=== PATIENT | female | born 1970 | race Hispanic/Latino ===

== ENCOUNTER 2020-03-16 22:40 | Inpatient (IN) | payer OTHER ==
[2020-03-16 23:13] LABS: #Lymphocytes 0.6 thou/uL (1.20-3.40); #Monocytes 0.2 thou/uL (0.11-0.59); #Neutrophils 4.6 thou/uL (1.40-6.50); %Basophils 0.3 % (0.0-1.0); %Eosinophils 0.2 % (0.0-10.0); %Lymphocytes 10.4 % (21.0-51.0); %Monocytes 4.2 % (0.0-10.0); %Neutrophils 84.9 % (42.0-75.0); Hemoglobin 11.9 g/dL (12.0-16.0); Mean Corpuscular HGB CONC 32.2 g/dL (32.0-36.0); Mean Corpuscular Hemoglobin 27.7 pg (27.0-31.0); Mean Platelet Volume 8.1 fL (7.4-10.4); Platelet Count 238 thou/uL (130-400); RBC Distribution Width 14.8 % (11.5-14.5); Red Blood Cell (RBC) Count 4.28 mill/uL (4.20-5.40); White Blood Cell (WBC) Count 5.4 thou/uL (4.8-10.8)
[2020-03-16] MEDS ORDERED: cefTRIAXone\\ROCEPHIN 2 GM VIAL ONE (23:24)
[2020-03-16] MEDS ORDERED: Azithromycin 500 MG VIAL ONE (23:24)
[2020-03-16] MEDS ORDERED: Dexamethasone 10 MG/ML VIAL ONE (23:24)
[2020-03-16 23:28] LABS: ALT (SGPT) 14 U/L (8-55); AST (SGOT) 28 U/L (5-34); Albumin 3.3 g/dL (3.5-5.0); Alkaline Phosphatase 67 U/L (40-110); Anion Gap 14 mmol/L (10-20); BUN (Urea Nitrogen) 5 mg/dL (9.8-20.1); Bilirubin, Total Less than 0.2 mg/dL (0.2-1.2); CK (CPK) 27 U/L (29-168); Calc. Creatinine Clearance 0 mL/min (70-130); Calcium 8.2 mg/dL (7.8-10.44); Carbon Dioxide 22 mmol/L (22-29); Chloride 106 mmol/L (98-107); Estimated GFR-MDRD 87; Glucose 118 mg/dL (70-105); Potassium 3.3 mmol/L (3.5-5.1); Protein, Total 6.3 g/dL (6.0-8.3); Sodium 139 mmol/L (136-145)
[2020-03-17] MEDS ORDERED: Senokot S 8.6-50 MG TAB PO PRN (00:38)
[2020-03-17] MEDS ORDERED: Acetaminophen 325 MG TAB PO PRN (00:43)
[2020-03-17 01:24] LABS: INR-International Normal Ratio 0.9; PTT 38.8 sec (22.9-36.1); Prothrombin Time 12.6 sec (12.0-14.7)
[2020-03-17 01:25] LABS: D-Dimer Test 0.4 *mcg/mL (0.27-0.43)
[2020-03-17 05:02] LABS: #Lymphocytes 0.5 thou/uL (1.20-3.40); #Monocytes 0.1 thou/uL (0.11-0.59); #Neutrophils 5.9 thou/uL (1.40-6.50); %Eosinophils 0.2 % (0.0-10.0); %Lymphocytes 7.1 % (21.0-51.0); %Monocytes 2.1 % (0.0-10.0); %Neutrophils 90.6 % (42.0-75.0); Mean Corpuscular HGB CONC 33.2 g/dL (32.0-36.0); Mean Corpuscular Hemoglobin 28.4 pg (27.0-31.0); Mean Corpuscular Volume 85.4 fL (78.0-98.0); Mean Platelet Volume 8.3 fL (7.4-10.4); Platelet Count 240 thou/uL (130-400); RBC Distribution Width 14.8 % (11.5-14.5); Red Blood Cell (RBC) Count 4.22 mill/uL (4.20-5.40); White Blood Cell (WBC) Count 6.5 thou/uL (4.8-10.8)
[2020-03-17 05:22] LABS: ALT (SGPT) 13 U/L (8-55); AST (SGOT) 25 U/L (5-34); Alkaline Phosphatase 64 U/L (40-110); Anion Gap 11 mmol/L (10-20); BUN (Urea Nitrogen) 6 mg/dL (9.8-20.1); Bilirubin, Total Less than 0.2 mg/dL (0.2-1.2); Calc. Creatinine Clearance 103 mL/min (70-130); Calcium 8.1 mg/dL (7.8-10.44); Carbon Dioxide 25 mmol/L (22-29); Chloride 110 mmol/L (98-107); Estimated GFR-MDRD 85; Globulin 2.9 g/dL (2.4-3.5); Glucose 156 mg/dL (70-105); Potassium 4.2 mmol/L (3.5-5.1); Protein, Total 5.9 g/dL (6.0-8.3); Sodium 142 mmol/L (136-145)
--- NOTE | 2020-03-17 05:55 | HP ---
CHIEF COMPLAINT: Shortness of breath. HISTORY OF PRESENT ILLNESS: Ms. Godfrey is a 49-year-old woman, who presented to the emergency department today due to feeling generally unwell and short of breath. She has been sedentary for the last 48 hours. States she has had some chest discomfort associated with coughing. She has been unable to take a deep breath without it causing coughing fits. States her cough has been dry and denies any hemoptysis. Reports having fevers, chills, and generalized body aches. She was tested positive for COVID one week ago. The patient states her mother was the first one to come down with COVID. She states she had been feeling poorly since Tuesday. Reports having a couple episodes of diarrhea, which has now resolved. Denies any vomiting, but does complain of nausea and decreased appetite due to changes with her taste. States because of that, her oral intake has diminished in the last 2 to 3 days. Denies having any abdominal pain. No urinary symptoms. All other review of systems are negative. ED COURSE: In the emergency department, she had an EKG showing sinus tachycardia with a heart rate of 118. She had a chest x-ray done, which showed diffuse bilateral airspace disease concerning for edema versus pneumonia. This is as per ED report as radiology report is not yet available. LABORATORY DATA: Laboratory studies were done showing white count of 5.4, hemoglobin of 11.9, hematocrit 36.8, neutrophils 84.9%. Potassium 3.3, BUN 5, creatinine 0.71, GFR 87, albumin 3.3, glucose 118. CK 27. Lactic acid 1.9. Troponin negative. CRP 24.66. D-dimer was negative and BNP 18.6. The patient was noted to have sats of 95% on room air with respiratory rate of 36, therefore placed on 2 L by nasal cannula with improvement in her sats to 98%, and respiratory rate was normalized. She was given 10 mg of dexamethasone IV, azithromycin, Rocephin, and 500 mL of normal saline. PAST MEDICAL HISTORY: Hyperlipidemia. PAST SURGICAL HISTORY: . SOCIAL HISTORY: The patient lives with her family. Denies any tobacco use, alcohol consumption, or illicit drug use. FAMILY HISTORY: Noncontributory. ALLERGIES: NO KNOWN DRUG ALLERGIES. CURRENT MEDICATIONS: None. PHYSICAL EXAMINATION: GENERAL: The patient appears generally unwell, but is in no acute distress. She was found sleeping comfortably in bed. VITAL SIGNS: Temperature 99.3, pulse 100, respirations 18, O2 saturation 94% on room air, 99% on 2 L by nasal cannula, blood pressure 141/75. HEENT: Normocephalic and atraumatic. Pupils are equal, round, and reactive to light. Sclerae icterus. Oropharynx is clear. NECK: Supple. LUNGS: Clear to auscultation bilaterally; however, decreased inspiratory effort due to deep inspiration causing coughing fits. She denies any chest pain at present. No chest wall tenderness. ABDOMEN: Soft, nontender, and nondistended with bowel sounds present. No guarding or rigidity. No renal angle tenderness. EXTREMITIES: No lower leg swelling or edema. No calf tenderness. SKIN: Warm and dry. INVESTIGATIONS: As mentioned above in HPI. IMPRESSION AND PLAN: Ms. Godfrey is a 49-year-old woman, who tested positive for COVID one week ago, presenting with complaints of shortness of breath and difficulty catching her breath, as well as fever, generalized body aches, chills, and a decreased appetite. Diarrhea which she experienced two days ago has resolved. Saturations have improved and her respiratory rate has settled. She had a D- dimer done which was normal. She was tachycardic initially, however, her heart rate has settled. Continue to monitor the patient overnight. Plan to continue steroids as well as azithromycin. The patient otherwise a healthy individual, who takes no medications at home. Code status is full. Her surrogate decision maker is her , Kvng Godfrey. Case discussed with Dr. Kaye, who agrees with the plan of care as described above. Job ID: [id number] MTDD
[2020-03-17] MEDS: Dexamethasone 4 MG TAB PO SCH (07:56)
[2020-03-17] MEDS: Enoxaparin Sodium 40 MG/0.4 ML SYRINGE SC SCH (07:56)
[2020-03-17] MEDS ORDERED: Enoxaparin Sodium 40 MG/0.4 ML SYRINGE SC SCH ×2 (09:00)
--- NOTE | 2020-03-17 10:30 | RAD ---
PORTABLE CHEST: DATE: 03/16/2020. PROVIDED CLINICAL HISTORY: Dyspnea. FINDINGS: Comparison 03/20/2014. Cardiac and mediastinal silhouette is within normal limits. There is diffuse bilateral airspace disease. There is no pleural fluid or pneumothorax apparent. IMPRESSION: Diffuse bilateral airspace disease, edema versus pneumonia. Followup is recommended. POS: JEFF
[2020-03-17] MEDS: Albuterol 200 PUFF (6.7GM INHALER) INH SCH ×2 (17:54→21:56)
[2020-03-17] MEDS: Acetaminophen 500 MG TAB PO PRN (17:54)
[2020-03-17] MEDS: Guaifenesin DM 100-10/5 ML UDCUP PO PRN (17:54)
[2020-03-17] MEDS: Azithromycin 500 MG in Sodium Chloride 0.9% 250 ML 250 ML IVPB SCH (21:56)
[2020-03-18] MEDS: Albuterol 200 PUFF (6.7GM INHALER) INH SCH ×6 (03:33→20:33)
[2020-03-18] MEDS: Dexamethasone 4 MG TAB PO SCH (08:34)
[2020-03-18] MEDS: Enoxaparin Sodium 40 MG/0.4 ML SYRINGE SC SCH (08:36)
[2020-03-18] MEDS: Guaifenesin DM 100-10/5 ML UDCUP PO PRN ×2 (08:57→15:48)
[2020-03-18] MEDS: Acetaminophen 500 MG TAB PO PRN ×2 (12:11→22:58)
--- NOTE | 2020-03-18 20:04 | PDOC.HOSPP ---
- Subjective Encounter Date: 03/18/20 Encounter Time: 16:40 Subjective: f/u for COVID-19 PNA on O2 via NC/Zithromax/Dexamethasone/Albuterol MDI. States feeling fatigued and coughing. - Objective Vital Signs & Weight: Vital Signs (12 hours) Temp Pulse Resp BP Pulse Ox 03/18/20 19:45 97.4 F L 86 21 H 133/83 92 L 03/18/20 15:55 98.8 F 91 18 132/78 96 03/18/20 12:13 98.7 F 86 18 129/79 94 L 03/18/20 08:36 99.3 F 96 18 129/78 91 L Weight Weight 154 lb I&O: 03/17/20 03/18/20 03/19/20 06:59 06:59 06:59 Intake Total 810 980 Output Total 650 700 Balance 160 280 Result Diagrams: 03/17/20 04:35 03/17/20 04:35 Additional Labs: Microbiology 03/16/20 23:00 Venous blood - Right Arm Blood Culture - Preliminary NO GROWTH AT 48 HOURS 03/16/20 23:00 Venous blood - Left Arm Blood Culture - Preliminary NO GROWTH AT 48 HOURS Laboratory Tests 03/16/20 03/17/20 03/17/20 23:00 01:00 01:00 Lactic Acid 1.9 Ferritin 95.37 C-Reactive Protein 24.66 H Radiology Reviewed by me: Yes (PCXR - diffuse bilat infiltrates) EKG Reviewed by me: Yes (Tele - SR) Hospitalist ROS - Medication Medications: Active Medications Generic Name Dose Route Start Last Admin Trade Name Freq PRN Reason Stop Dose Admin Acetaminophen 1,000 mg 03/17/20 17:29 03/18/20 12:11 Tylenol PO 1,000 mg Q6H PRN Administration Fever or Pain Albuterol Sulfate 2 puff 03/17/20 18:30 03/18/20 17:47 Proventil Hfa INH 2 puff [id number] NEHAL Administration Dexamethasone 6 mg 03/17/20 08:00 03/18/20 08:34 Decadron PO 6 mg QAM-WM NEHAL Administration Enoxaparin Sodium 40 mg 03/17/20 09:00 03/18/20 08:36 Lovenox SC 40 mg DAILY NEHAL Administration Guaifenesin/Dextromethorphan 15 ml 03/17/20 17:28 03/18/20 15:48 Robitussin Dm PO 15 ml Q4H PRN Administration Cough Azithromycin 500 mg/ Sodium 250 mls @ 250 mls/hr 03/17/20 23:30 03/17/20 21: 56 Chloride IVPB 250 mls Q24HR NEHAL Administration Pantoprazole Sodium 40 mg 03/17/20 09:00 03/18/20 08:36 Protonix PO 40 mg DAILY NEHAL Administration - Exam General Appearance: awake alert, ill appearing Eye: PERRL, anicteric sclera, scleral icterus ENT: normocephalic atraumatic, no oropharyngeal lesions Neck: supple, symmetric, no JVD, no thyromegaly, no lymphadenopathy Heart: RRR, no murmur, no gallops, no rubs, normal peripheral pulses Heart - other findings: S1, S2 Respiratory: tachypneic Respiratory - other findings: diminished bilat, occ exp wheeze Gastrointestinal: soft, non-tender, non-distended, normal bowel sounds, no palpable masses Extremities: no cyanosis, no clubbing, no edema Skin: normal turgor, no lesions Neurological: cranial nerve grossly intact, no new deficit Musculoskeletal: normal tone, normal strength, no muscle wasting Psychiatric: normal affect, A&O x 3 Hosp A/P (1) Pneumonia due to COVID-19 virus Code(s): U07.1 - COVID-19; J12.89 - OTHER VIRAL PNEUMONIA Status: Acute Plan: Continue Zithromax/Dexamethasone/Albuterol MDI, isolation protocol (2) Acute respiratory failure with hypoxia Code(s): J96.01 - ACUTE RESPIRATORY FAILURE WITH HYPOXIA Status: Acute Plan: Continue O2 via NC @ 3L/min NC, continue bronchodilators (3) Sinus tachycardia Code(s): R00.0 - TACHYCARDIA, UNSPECIFIED Status: Acute Plan: Secondary to #1, likely exacerbated with Albuterol - Plan continue antibiotics, foster care social worker, respiratory therapy, out of bed/ambulate , DVT proph w/SCDs Continue pulmonary supportive mgmt Continue Zithromax Continue Dexamethasone/Albuterol O2 support as clinically indicated Isolation protocol
[2020-03-18] MEDS: Azithromycin 500 MG in Sodium Chloride 0.9% 250 ML 250 ML IVPB SCH (20:32)
[2020-03-19] MEDS: Albuterol 200 PUFF (6.7GM INHALER) INH SCH ×6 (02:15→21:22)
[2020-03-19] MEDS: Dexamethasone 4 MG TAB PO SCH (07:35)
[2020-03-19] MEDS: Enoxaparin Sodium 40 MG/0.4 ML SYRINGE SC SCH (07:36)
[2020-03-19] MEDS: Guaifenesin DM 100-10/5 ML UDCUP PO PRN ×2 (07:37→21:21)
[2020-03-19] MEDS: Acetaminophen 500 MG TAB PO PRN ×2 (12:13→21:21)
--- NOTE | 2020-03-19 14:27 | PDOC.HOSPP ---
- Subjective Encounter Date: 03/19/20 Encounter Time: 14:05 Subjective: f/u for COVID-19 PNA on current Zithromax/Albuterol/Dexamethasone/O2 @ 4L/min NC. Feels better today than yesterday. - Objective Vital Signs & Weight: Vital Signs (12 hours) Temp Pulse Resp BP BP Pulse Ox 03/19/20 12:30 98.6 F 85 20 137/79 94 L 03/19/20 08:08 98.4 F 82 24 H 134/78 92 L 03/19/20 02:55 98.5 F 88 18 132/79 93 L Weight Weight 154 lb I&O: 03/18/20 03/19/20 03/20/20 06:59 06:59 06:59 Intake Total 810 1580 120 Output Total 650 1500 Balance 160 80 120 Result Diagrams: 03/17/20 04:35 03/17/20 04:35 Additional Labs: Accuchecks 03/18/20 20:47 POC Glucose 141 H Microbiology 03/16/20 23:00 Venous blood - Right Arm Blood Culture - Preliminary NO GROWTH AT 48 HOURS 03/16/20 23:00 Venous blood - Left Arm Blood Culture - Preliminary NO GROWTH AT 48 HOURS Laboratory Tests 03/16/20 03/17/20 03/17/20 23:00 01:00 01:00 Lactic Acid 1.9 Ferritin 95.37 C-Reactive Protein 24.66 H EKG Reviewed by me: Yes (Tele - SR) Hospitalist ROS - Medication Medications: Active Medications Generic Name Dose Route Start Last Admin Trade Name Freq PRN Reason Stop Dose Admin Acetaminophen 1,000 mg 03/17/20 17:29 03/19/20 12:13 Tylenol PO 1,000 mg Q6H PRN Administration Fever or Pain Albuterol Sulfate 2 puff 03/17/20 18:30 03/19/20 07:37 Proventil Hfa INH 2 puff [id number] NEHAL Administration Dexamethasone 6 mg 03/17/20 08:00 03/19/20 07:35 Decadron PO 6 mg QAM-WM NEHAL Administration Enoxaparin Sodium 40 mg 03/17/20 09:00 03/19/20 07:36 Lovenox SC 40 mg DAILY NEHAL Administration Guaifenesin/Dextromethorphan 15 ml 03/17/20 17:28 03/19/20 07:37 Robitussin Dm PO 15 ml Q4H PRN Administration Cough Azithromycin 500 mg/ Sodium 250 mls @ 250 mls/hr 03/17/20 23:30 03/18/20 20: 32 Chloride IVPB 250 mls Q24HR NEHAL Administration Pantoprazole Sodium 40 mg 03/17/20 09:00 03/19/20 07:36 Protonix PO 40 mg DAILY NEHAL Administration - Exam General Appearance: NAD, awake alert Eye: PERRL, anicteric sclera ENT: normocephalic atraumatic, no oropharyngeal lesions Neck: supple, symmetric, no JVD, no thyromegaly, no lymphadenopathy Heart: RRR, no murmur, no gallops, no rubs, normal peripheral pulses Respiratory: tachypneic Respiratory - other findings: diminished in bases, occasional rhonchi Gastrointestinal: soft, non-tender, non-distended, normal bowel sounds, no palpable masses Extremities: no cyanosis, no clubbing, no edema Skin: normal turgor, no lesions Neurological: cranial nerve grossly intact, no new deficit Musculoskeletal: normal tone, normal strength, no muscle wasting Psychiatric: normal affect, A&O x 3 Hosp A/P (1) Pneumonia due to COVID-19 virus Code(s): U07.1 - COVID-19; J12.89 - OTHER VIRAL PNEUMONIA Status: Acute Plan: Continue Zithromax/Albuterol MDI/O2 via NC, isolation protocol (2) Acute respiratory failure with hypoxia Code(s): J96.01 - ACUTE RESPIRATORY FAILURE WITH HYPOXIA Status: Acute Plan: Continue O2 @ 4L/min NC, wean O2 as clinically indicated (3) Hyperglycemia Code(s): R73.9 - HYPERGLYCEMIA, UNSPECIFIED Status: Acute Plan: Likely due to steroid therapy, serial monitoring (4) Sinus tachycardia Code(s): R00.0 - TACHYCARDIA, UNSPECIFIED Status: Acute Plan: Resolving, continue supportive mgmt, tele monitoring - Plan continue antibiotics, social services technician, respiratory therapy, DVT proph w/SCDs Continue pulmonary supportive mgmt Continue Zithromax Continue Dexamethasone/Albuterol O2 support as clinically indicated Isolation protocol ? d/c in 48h
[2020-03-19] MEDS: Azithromycin 500 MG in Sodium Chloride 0.9% 250 ML 250 ML IVPB SCH (21:21)
[2020-03-20] MEDS: Albuterol 200 PUFF (6.7GM INHALER) INH SCH ×6 (03:05→22:30)
[2020-03-20] MEDS: Enoxaparin Sodium 40 MG/0.4 ML SYRINGE SC SCH (08:48)
[2020-03-20] MEDS: Acetaminophen 500 MG TAB PO PRN ×3 (08:48→22:30)
[2020-03-20] MEDS: Dexamethasone 4 MG TAB PO SCH (08:49)
[2020-03-20] MEDS: Guaifenesin DM 100-10/5 ML UDCUP PO PRN ×3 (12:13→22:30)
--- NOTE | 2020-03-20 17:10 | PDOC.HOSPP ---
- Subjective Encounter Date: 03/20/20 Encounter Time: 17:10 Subjective: f/u for COVID-19 PNA on current Zithromax/Dexamethasone/Albuterol. Remains on 4L /min NC. - Objective Vital Signs & Weight: Vital Signs (12 hours) Temp Pulse Resp BP Pulse Ox 03/20/20 16:00 98.2 F 76 16 124/72 93 L 03/20/20 12:00 98.7 F 81 16 132/76 93 L 03/20/20 11:27 92 L 03/20/20 08:00 97.6 F 88 18 132/76 92 L Weight Weight 154 lb I&O: 03/19/20 03/20/20 03/21/20 06:59 06:59 06:59 Intake Total 1580 1140 Output Total 1500 950 Balance 80 190 Result Diagrams: 03/17/20 04:35 03/17/20 04:35 Additional Labs: Microbiology 03/16/20 23:00 Venous blood - Right Arm Blood Culture - Preliminary NO GROWTH AT 48 HOURS 03/16/20 23:00 Venous blood - Left Arm Blood Culture - Preliminary NO GROWTH AT 48 HOURS Laboratory Tests 03/16/20 03/17/20 03/17/20 23:00 01:00 01:00 Lactic Acid 1.9 Ferritin 95.37 C-Reactive Protein 24.66 H EKG Reviewed by me: Yes (Tele - SR) Hospitalist ROS - Medication Medications: Active Medications Generic Name Dose Route Start Last Admin Trade Name Freq PRN Reason Stop Dose Admin Acetaminophen 1,000 mg 03/17/20 17:29 03/20/20 08:48 Tylenol PO 1,000 mg Q6H PRN Administration Fever or Pain Albuterol Sulfate 2 puff 03/17/20 18:30 03/20/20 15:04 Proventil Hfa INH 2 puff [id number] NEHAL Administration Dexamethasone 6 mg 03/17/20 08:00 03/20/20 08:49 Decadron PO 6 mg QAM-WM NEHAL Administration Enoxaparin Sodium 40 mg 03/17/20 09:00 03/20/20 08:48 Lovenox SC 40 mg DAILY NEHAL Administration Guaifenesin/Dextromethorphan 15 ml 03/17/20 17:28 03/20/20 12:13 Robitussin Dm PO 15 ml Q4H PRN Administration Cough Azithromycin 500 mg/ Sodium 250 mls @ 250 mls/hr 03/17/20 23:30 03/19/20 21: 21 Chloride IVPB 250 mls Q24HR NEHAL Administration Pantoprazole Sodium 40 mg 03/17/20 09:00 03/20/20 08:48 Protonix PO 40 mg DAILY NEHAL Administration - Exam General Appearance: NAD, awake alert Eye: PERRL, anicteric sclera ENT: normocephalic atraumatic, no oropharyngeal lesions Neck: supple, symmetric, no JVD, no thyromegaly, no lymphadenopathy Heart: RRR, no murmur, no gallops, no rubs, normal peripheral pulses Heart - other findings: S1, S2 Respiratory: no wheezes, tachypneic Respiratory - other findings: diminished in bases bilat Gastrointestinal: soft, non-tender, non-distended, normal bowel sounds, no palpable masses Extremities: no cyanosis, no clubbing, no edema Skin: normal turgor, no lesions Neurological: cranial nerve grossly intact, no new deficit Musculoskeletal: normal tone, normal strength, no muscle wasting Psychiatric: normal affect, A&O x 3 Hosp A/P (1) Pneumonia due to COVID-19 virus Code(s): U07.1 - COVID-19; J12.89 - OTHER VIRAL PNEUMONIA Status: Acute Plan: Continue Zithromax/Dexamethasone/Albuterol (2) Acute respiratory failure with hypoxia Code(s): J96.01 - ACUTE RESPIRATORY FAILURE WITH HYPOXIA Status: Acute Plan: Continue O2 support, wean as clinically indicated (3) Hyperglycemia Code(s): R73.9 - HYPERGLYCEMIA, UNSPECIFIED Status: Acute (4) Sinus tachycardia Code(s): R00.0 - TACHYCARDIA, UNSPECIFIED Status: Acute - Plan continue antibiotics, social media developer, respiratory therapy, out of bed/ambulate , DVT proph w/SCDs Continue pulmonary supportive mgmt Continue Zithromax Continue Dexamethasone/Albuterol O2 support as clinically indicated Isolation protocol ? d/c in 48h
[2020-03-20] MEDS: Azithromycin 500 MG in Sodium Chloride 0.9% 250 ML 250 ML IVPB SCH (22:29)
[2020-03-21] MEDS: Albuterol 200 PUFF (6.7GM INHALER) INH SCH ×7 (02:26→22:30)
[2020-03-21] MEDS: Guaifenesin DM 100-10/5 ML UDCUP PO PRN ×2 (08:00→22:39)
[2020-03-21] MEDS: Enoxaparin Sodium 40 MG/0.4 ML SYRINGE SC SCH (08:01)
[2020-03-21] MEDS: Dexamethasone 4 MG TAB PO SCH (08:01)
[2020-03-21] MEDS: Acetaminophen 500 MG TAB PO PRN ×2 (08:03→22:41)
--- NOTE | 2020-03-21 13:15 | PDOC.HOSPP ---
- Subjective Encounter Date: 03/21/20 Encounter Time: 12:50 Subjective: f/u for COVID-19 PNA on Zithromax/Dexamethasone/Albuterol/O2 @ 4L/min NC. Still weak and some SOB. - Objective Vital Signs & Weight: Vital Signs (12 hours) Temp Pulse Resp BP BP Pulse Ox 03/21/20 12:37 98 03/21/20 12:24 97.9 F 88 20 136/89 98 03/21/20 08:40 92 L 03/21/20 08:35 98.4 F 87 18 137/77 92 L 03/21/20 08:17 92 L 03/21/20 02:51 98.8 F 76 18 159/91 H 92 L 03/21/20 02:25 94 L Weight Weight 154 lb I&O: 03/20/20 03/21/20 03/22/20 06:59 06:59 06:59 Intake Total 1140 240 Output Total 950 850 Balance 190 -610 Result Diagrams: 03/17/20 04:35 03/17/20 04:35 Additional Labs: Microbiology 03/16/20 23:00 Venous blood - Right Arm Blood Culture - Preliminary NO GROWTH AT 48 HOURS 03/16/20 23:00 Venous blood - Left Arm Blood Culture - Preliminary NO GROWTH AT 48 HOURS Laboratory Tests 03/16/20 03/17/20 03/17/20 23:00 01:00 01:00 Lactic Acid 1.9 Ferritin 95.37 C-Reactive Protein 24.66 H Hospitalist ROS - Medication Medications: Active Medications Generic Name Dose Route Start Last Admin Trade Name Freq PRN Reason Stop Dose Admin Acetaminophen 1,000 mg 03/17/20 17:29 03/21/20 08:03 Tylenol PO 1,000 mg Q6H PRN Administration Fever or Pain Albuterol Sulfate 2 puff 03/17/20 18:30 03/21/20 06:18 Proventil Hfa INH 2 puff [id number] NEHAL Administration Dexamethasone 6 mg 03/17/20 08:00 03/21/20 08:01 Decadron PO 6 mg QAM-WM NEHAL Administration Enoxaparin Sodium 40 mg 03/17/20 09:00 03/21/20 08:01 Lovenox SC 40 mg DAILY NEHAL Administration Guaifenesin/Dextromethorphan 15 ml 03/17/20 17:28 03/21/20 08:00 Robitussin Dm PO 15 ml Q4H PRN Administration Cough Azithromycin 500 mg/ Sodium 250 mls @ 250 mls/hr 03/17/20 23:30 03/20/20 22: 29 Chloride IVPB 250 mls Q24HR NEHAL Administration Pantoprazole Sodium 40 mg 03/17/20 09:00 03/21/20 08:03 Protonix PO 40 mg DAILY NEHAL Administration - Exam General Appearance: NAD, awake alert Eye: PERRL, anicteric sclera ENT: normocephalic atraumatic, no oropharyngeal lesions Neck: supple, symmetric, no JVD, no thyromegaly, no lymphadenopathy Heart: RRR, no murmur, no gallops, no rubs, normal peripheral pulses Heart - other findings: S1, S2 Respiratory: no wheezes, tachypneic Respiratory - other findings: diminished in bases Gastrointestinal: soft, non-tender, non-distended, normal bowel sounds, no palpable masses Extremities: no cyanosis, no clubbing, no edema Skin: normal turgor, no lesions, no rashes Neurological: cranial nerve grossly intact, no new deficit Musculoskeletal: normal tone, normal strength, no muscle wasting Psychiatric: normal affect, A&O x 3 Hosp A/P (1) Pneumonia due to COVID-19 virus Code(s): U07.1 - COVID-19; J12.89 - OTHER VIRAL PNEUMONIA Status: Acute Plan: Continue Zithromax/Dexamethasone/Albuterol/O2, isolation protocol (2) Acute respiratory failure with hypoxia Code(s): J96.01 - ACUTE RESPIRATORY FAILURE WITH HYPOXIA Status: Acute Plan: Wean O2 as clinically feasible (3) Hyperglycemia Code(s): R73.9 - HYPERGLYCEMIA, UNSPECIFIED Status: Acute (4) Sinus tachycardia Code(s): R00.0 - TACHYCARDIA, UNSPECIFIED Status: Acute - Plan continue antibiotics, pediatric social worker, respiratory therapy, out of bed/ambulate , DVT proph w/SCDs Continue pulmonary supportive mgmt Continue Zithromax Continue Dexamethasone/Albuterol O2 support as clinically indicated Isolation protocol ? d/c in 48h
[2020-03-21] MEDS: Azithromycin 500 MG in Sodium Chloride 0.9% 250 ML 250 ML IVPB SCH (22:34)
[2020-03-22] MEDS: Albuterol 200 PUFF (6.7GM INHALER) INH SCH ×6 (02:58→23:30)
[2020-03-22] MEDS: Enoxaparin Sodium 40 MG/0.4 ML SYRINGE SC SCH (07:49)
[2020-03-22] MEDS: Dexamethasone 4 MG TAB PO SCH (07:49)
--- NOTE | 2020-03-22 08:58 | PDOC.HOSPP ---
- Subjective Encounter Date: 03/22/20 Encounter Time: 10:55 Subjective: Patient with persistent shortness of breath and cough. She was very tachypneic earlier, but now on 5L NC she is feeling a bit better. - Objective Vital Signs & Weight: Vital Signs (12 hours) Temp Pulse Resp BP Pulse Ox 03/22/20 08:27 98 F 90 28 H 121/82 91 L 03/22/20 04:00 98.3 F 73 18 138/63 94 L 03/22/20 03:37 93 L 03/22/20 00:00 98 F 73 18 142/73 H 93 L Weight Weight 154 lb I&O: 03/21/20 03/22/20 03/23/20 06:59 06:59 06:59 Intake Total 240 1010 Output Total 850 Balance -610 1010 Result Diagrams: 03/17/20 04:35 03/17/20 04:35 Hospitalist ROS - Review of Systems Constitutional: denies: fever, chills Respiratory: reports: cough, shortness of breath Cardiovascular: denies: chest pain, palpitations Gastrointestinal: denies: nausea, vomiting, abdominal pain - Medication Medications: Active Medications Generic Name Dose Route Start Last Admin Trade Name Freq PRN Reason Stop Dose Admin Acetaminophen 1,000 mg 03/17/20 17:29 03/21/20 22:41 Tylenol PO 1,000 mg Q6H PRN Administration Fever or Pain Albuterol Sulfate 2 puff 03/17/20 18:30 03/22/20 06:20 Proventil Hfa INH 2 puff [id number] NEHAL Administration Dexamethasone 6 mg 03/17/20 08:00 03/22/20 07:49 Decadron PO 6 mg QAM-WM NEHAL Administration Enoxaparin Sodium 40 mg 03/17/20 09:00 03/22/20 07:49 Lovenox SC 40 mg DAILY NEHAL Administration Guaifenesin/Dextromethorphan 15 ml 03/17/20 17:28 03/21/20 22:39 Robitussin Dm PO 15 ml Q4H PRN Administration Cough Azithromycin 500 mg/ Sodium 250 mls @ 250 mls/hr 03/17/20 23:30 03/21/20 22: 34 Chloride IVPB 250 mls Q24HR NEHAL Administration Pantoprazole Sodium 40 mg 03/17/20 09:00 03/22/20 07:49 Protonix PO 40 mg DAILY NEHAL Administration - Exam General Appearance: NAD, awake alert ENT: moist mucosa Heart: RRR, no murmur, no gallops, no rubs Respiratory - other findings: mildly increased WOB, scattered coarse breath sounds Gastrointestinal: soft, non-tender, non-distended, normal bowel sounds Psychiatric: normal affect, normal behavior, A&O x 3 Hosp A/P (1) Acute respiratory failure with hypoxia Code(s): J96.01 - ACUTE RESPIRATORY FAILURE WITH HYPOXIA Status: Acute (2) Pneumonia due to COVID-19 virus Code(s): U07.1 - COVID-19; J12.89 - OTHER VIRAL PNEUMONIA Status: Acute (3) Hyperlipidemia Code(s): E78.5 - HYPERLIPIDEMIA, UNSPECIFIED Status: Chronic - Plan Continue Azithromycin, Dexamethasone day 03/05, and prophylactic Lovenox Patient still requiring 4-5L NC O2 Monitor closely for deterioration.
[2020-03-22] MEDS: Acetaminophen 500 MG TAB PO PRN ×2 (09:59→17:43)
[2020-03-22] MEDS: Guaifenesin DM 100-10/5 ML UDCUP PO PRN ×2 (09:59→17:43)
--- NOTE | 2020-03-22 16:55 | EKG ---
Test Reason : Blood Pressure : / mmHG Vent. Rate : 102 BPM Atrial Rate : 102 BPM P-R Int : 118 ms QRS Dur : 078 ms QT Int : 352 ms P-R-T Axes : 039 051 028 degrees QTc Int : 458 ms Sinus tachycardia with occasional Premature ventricular complexes Otherwise normal ECG Confirmed by RAHUL LEON M.D. ([id number]), photographic editor ANNE MERCADO ([id number]) on 03/22/2020 4:55:12 PM Referred By: Confirmed By:RAHUL LEON M.D.
[2020-03-23] MEDS: Azithromycin 500 MG in Sodium Chloride 0.9% 250 ML 250 ML IVPB SCH ×2 (00:14→23:13)
[2020-03-23] MEDS ORDERED: Bacteriostatic Water 30 ML VIAL FS PRN (02:00)
[2020-03-23] MEDS ORDERED: methylPREDNISolone Sod Succ/PF 125 MG/2 ML VIAL IVP SCH (02:15)
[2020-03-23] MEDS: Guaifenesin DM 100-10/5 ML UDCUP PO PRN (02:31)
[2020-03-23] MEDS: Albuterol 200 PUFF (6.7GM INHALER) INH SCH ×6 (04:31→23:14)
[2020-03-23 08:25] LABS: Actual Bicarbonate (HCO3a) 21.3 mEq/L (22-28); Base Excess (BEa) -1.1 mEq/L (-2.0 to +3.0); CO2 Tension 29.2 mmHg (35.0-45.0); Calcium, Ionized (arterial) 1.15 mmol/L (1.12-1.30); Carboxyhemoglobin (COHb) 0.4 gm% (0.0-3.0); O2 Tension (PaO2), arterial 67.5 mmHg (80.0-100.0); pH, Arterial 7.48 (7.35-7.45)
[2020-03-23 08:26] LABS: Puncture Site RRA
[2020-03-23] MEDS: Dexamethasone 4 MG TAB PO SCH (09:17)
[2020-03-23] MEDS: Enoxaparin Sodium 40 MG/0.4 ML SYRINGE SC SCH (09:17)
--- NOTE | 2020-03-23 10:15 | RAD ---
PORTABLE CHEST: HISTORY: Hypoxia. COMPARISON: 03/16/20 FINDINGS: There are hazy bilateral infiltrates, which are less dense and less extensive than on the prior exam of 03/16/20. IMPRESSION: Persistent hazy bilateral infiltrates. POS: AGW
--- NOTE | 2020-03-23 16:40 | PRG ---
DATE OF SERVICE: SUBJECTIVE: The patient is seen and examined at the bedside. She was transferred from the medical floor to [facility] secondary to respiratory status worsening. She improved on high-flow nasal cannula. OBJECTIVE: VITAL SIGNS: Blood pressure is 112/69, pulse is 88, respiratory rate is 26, O2 saturation is 97%. She is on 65%, 45 L/minute. HEENT: Her head is atraumatic and normocephalic. Eyes are PERRLA. Sclerae are nonicteric. Oral mucosa is moist. NECK: Supple. LUNGS: Bilateral rales present. Few wheezes bilaterally present. HEART: S1, S2 normal. ABDOMEN: Soft, nontender, nondistended. EXTREMITIES: No clubbing, cyanosis, or edema. NEUROLOGIC: She follows my commands. She moves her all 4 extremities. There is no any motor or sensory deficits. LABORATORY DATA: Showed ABGs; pH of 7.48, pCO2 of 29.2, PO2 of 67.5, base excess -1.1, glucose 380. Chest x-ray showed persistent hazy bilateral infiltrates. IMPRESSION: 1. Worsening respiratory failure secondary to COVID-19 pneumonia. 2. Pneumonia due to COVID-19 virus. 3. Hyperlipidemia. 4. Hyperglycemia most likely secondary to steroid use. PLAN: The patient is going to remain in IMCU. She is on a high-flow nasal cannula 65%, 45 L/minute and doing better. We will continue dexamethasone as before. We will continue her albuterol q.4 hours and azithromycin. Pulmonary/Critical Care consultation was requested. We are waiting for the report and we will do DVT prophylaxis with Lovenox. Job ID: [id number]
--- NOTE | 2020-03-23 18:10 | CON ---
DATE OF CONSULTATION: CHIEF COMPLAINT: COVID pneumonia. HISTORY OF PRESENT ILLNESS: Ms. Godfrey is a 49-year-old female, who presented to the hospital with complaints of increasing shortness of breath and general malaise. She had a cough, which was nonproductive appearing sputum, but was occurring in paroxysms and was associated with chest wall discomfort. She had subjective fevers and chills at home. The patient had been tested for COVID 1 week prior to ER presentation and was positive. She had been at home with family, who apparently were her source of infection. When she presented to the emergency room, she had sinus tachycardia and chest x-ray demonstrating bilateral airspace disease. She was admitted to the hospital and treated with steroids, IV antibiotic therapy, and continuation of her home medications. To this point, she has been on oxygen in the 4 to 5 L/minute range. She has been afebrile. Her x-ray has not shown any improvement nor has it shown a significant worsening. She remains on 5 L oxygen, and Pulmonary Service is consulted at this time. At the time of this consultation, the patient has been at least 2 weeks from the time of symptom onset. SOCIAL HISTORY: The patient is a 49-year-old female. She lives with several other family members, who were COVID positive prior to her symptom onset. She does not have a smoking history. ALLERGIES: SHE HAS NO MEDICATION ALLERGIES. MEDICATIONS: She was on no medications at the time of admission and hospital medication regimen has been reviewed. PAST MEDICAL HISTORY: Negative for diabetes, heart disease, kidney, or liver disease prior to the time of admission. PHYSICAL EXAMINATION: VITAL SIGNS: BMI of 28.2, blood pressure 121/75, pulse ox 98% on 5 L oxygen. She is currently afebrile. Her saturations have been as low as 87% earlier today. GENERAL: A 49-year-old female, mildly tachypneic. HEENT: She has no oropharyngeal Anna. LUNGS: Showed diffuse crackles without wheezing. HEART: Regular rate and rhythm. There is no audible murmur. ABDOMEN: Soft. Bowel sounds are normal. There is no guarding. EXTREMITIES: Without cyanosis, clubbing, or edema. LABORATORY DATA: Most recent CBC was done several days ago, at which time, white count was 6.5, hemoglobin of 12. She had a blood gas done earlier today with pH 7.48, CO2 of 29, PO2 of 67, and bicarbonate 21. This was obtained on high-flow oxygen at 65% and reflects an acute respiratory alkalosis and a very wide alveolar to arterial oxygen gradient. Her chest x-ray shows persistent bilateral interstitial findings consistent with COVID. IMPRESSION: COVID pneumonia. The patient presented to the hospital more than a week ago, by which time, she had already had symptoms and a known positive test at least a week. She is therefore outside the window of treatment with remdesivir. Unfortunately, she is still requiring fairly high oxygen levels and we would recommend continuation of current medications. Hopefully, she will not show further deterioration to the point that ventilatory support is required. RECOMMENDATIONS: The patient does not meet criteria at this time for remdesivir as symptoms have been present for at least 2 weeks by this point. I concur with other current medication management regimen. She is on high-flow nasal oxygen with 65%. Unfortunately, we have little additional to offer unless she has further deterioration and requires ventilatory support. Thank you for this consultation. Job ID: [id number]
[2020-03-24] MEDS: Albuterol 200 PUFF (6.7GM INHALER) INH SCH ×6 (03:27→23:41)
[2020-03-24] MEDS: Dexamethasone 4 MG TAB PO SCH (10:02)
[2020-03-24] MEDS: Enoxaparin Sodium 40 MG/0.4 ML SYRINGE SC SCH (10:02)
--- NOTE | 2020-03-24 10:12 | PDOC.HOSPP ---
- Subjective Encounter Date: 03/24/20 Encounter Time: 10:20 Subjective: Patient reports feeling a little better. Eating breakfast. - Objective Vital Signs & Weight: Vital Signs (12 hours) Temp Pulse Ox 03/24/20 06:00 98.2 F 03/24/20 04:00 98.4 F 03/24/20 01:04 98 03/24/20 00:00 98.2 F Weight Weight 154 lb Most Recent Monitor Data Heart Rate from ECG 92 NIBP 97/80 NIBP BP-Mean 85 Respiration from ECG 32 SpO2 88 I&O: 03/23/20 03/24/20 03/25/20 06:59 06:59 06:59 Intake Total 270 1010 Output Total 450 1220 Balance -180 -210 Result Diagrams: 03/17/20 04:35 03/17/20 04:35 Additional Labs: Accuchecks 03/23/20 13:20 POC Glucose 380 H Hospitalist ROS - Review of Systems Constitutional: denies: fever, chills Respiratory: reports: cough, shortness of breath Cardiovascular: denies: chest pain, palpitations Gastrointestinal: denies: nausea, vomiting, abdominal pain - Medication Medications: Active Medications Generic Name Dose Route Start Last Admin Trade Name Freq PRN Reason Stop Dose Admin Acetaminophen 1,000 mg 03/17/20 17:29 03/22/20 17:43 Tylenol PO 1,000 mg Q6H PRN Administration Fever or Pain Albuterol Sulfate 2 puff 03/17/20 18:30 03/24/20 10:02 Proventil Hfa INH 2 puff [id number] NEHAL Administration Dexamethasone 6 mg 03/17/20 08:00 03/24/20 10:02 Decadron PO 6 mg QAM-WM NEHAL Administration Enoxaparin Sodium 40 mg 03/17/20 09:00 03/24/20 10:02 Lovenox SC 40 mg DAILY NEHAL Administration Guaifenesin/Dextromethorphan 15 ml 03/17/20 17:28 03/23/20 02:31 Robitussin Dm PO 15 ml Q4H PRN Administration Cough Azithromycin 500 mg/ Sodium 250 mls @ 250 mls/hr 03/17/20 23:30 03/23/20 23: 13 Chloride IVPB 250 mls Q24HR NEHAL Administration Pantoprazole Sodium 40 mg 03/17/20 09:00 03/24/20 10:02 Protonix PO 40 mg DAILY NEHAL Administration - Exam General Appearance: NAD, awake alert ENT: moist mucosa Heart: RRR, no murmur, no gallops, no rubs Respiratory: CTAB, no wheezes, no rales, no ronchi Respiratory - other findings: breathing comfortably on high flow O2 Gastrointestinal: soft, non-tender, non-distended, normal bowel sounds Psychiatric: normal affect, normal behavior, A&O x 3 Hosp A/P (1) Acute respiratory failure with hypoxia Code(s): J96.01 - ACUTE RESPIRATORY FAILURE WITH HYPOXIA Status: Acute (2) Pneumonia due to COVID-19 virus Code(s): U07.1 - COVID-19; J12.89 - OTHER VIRAL PNEUMONIA Status: Acute (3) Hyperlipidemia Code(s): E78.5 - HYPERLIPIDEMIA, UNSPECIFIED Status: Chronic - Plan Continue Dexamethasone day 8/10, prophylactic Lovenox, switch azithromycin to doxycycline per Dr. Moran's recommendations O2 sats high 80s to low 90s on high flow NC Oxygen Currently in the IMCU. Appreciate pulmonology assistance Intubation if deteriorates further.
[2020-03-24] MEDS: Guaifenesin DM 100-10/5 ML UDCUP PO PRN (10:29)
--- NOTE | 2020-03-24 11:41 | PRG ---
DATE OF SERVICE: 03/24/2020 SUBJECTIVE: She remains in the MICU on high flow. OBJECTIVE: GENERAL: She appears to be quite comfortable. VITAL SIGNS: Saturations are 97%, heart rate is 92, blood pressure 97/80, respiratory rate 18. CHEST: Bilateral crackles. CARDIAC: Normal S1, S2. No gallops. ABDOMEN: No masses. ASSESSMENT: Respiratory failure. Coronavirus disease pneumonia. High-flow. PLAN: We are going to initiate convalescent plasma if she has not already had any. She has already had 7 days of Zithromax, switch over to oral doxycycline, prednisone. We will follow. Hopefully, once the oxygen saturation stabilizes, she may be discharged home. Job ID: [id number]
[2020-03-24] MEDS: Doxycycline 100 MG CAP PO SCH (20:01)
[2020-03-25] MEDS: Diabetic Tussin DM 5 ML UDCUP PO PRN (00:37)
[2020-03-25] MEDS: Albuterol 200 PUFF (6.7GM INHALER) INH SCH ×6 (03:00→22:07)
[2020-03-25] MEDS: predniSONE 20 MG TAB PO SCH (08:50)
[2020-03-25] MEDS: Doxycycline 100 MG CAP PO SCH ×2 (08:50→21:11)
[2020-03-25] MEDS: Enoxaparin Sodium 40 MG/0.4 ML SYRINGE SC SCH (08:50)
--- NOTE | 2020-03-25 08:53 | PDOC.HOSPP ---
- Subjective Encounter Date: 03/25/20 Encounter Time: 11:00 Subjective: Patient feeling better today. Sats are staying up. Sitting up in chair and better energy today. - Objective Vital Signs & Weight: Vital Signs (12 hours) Temp Resp Pulse Ox 03/25/20 08:43 98 03/25/20 07:47 98 03/25/20 06:00 98.6 F 03/25/20 04:00 98.4 F 03/25/20 03:01 98 03/25/20 00:40 97.7 F 22 H 97 03/25/20 00:10 98.4 F 24 H 97 03/24/20 23:50 97.9 F 24 H 95 Weight Weight 154 lb Most Recent Monitor Data Heart Rate from ECG 79 NIBP 102/67 NIBP BP-Mean 78 Respiration from ECG 22 SpO2 100 I&O: 03/24/20 03/25/20 03/26/20 06:59 06:59 06:59 Intake Total 1010 1095 Output Total 1220 1420 Balance -210 -325 Result Diagrams: 03/17/20 04:35 03/17/20 04:35 Hospitalist ROS - Review of Systems Constitutional: denies: fever, chills Respiratory: reports: shortness of breath. denies: cough Cardiovascular: denies: chest pain, palpitations Gastrointestinal: denies: nausea, vomiting, abdominal pain - Medication Medications: Active Medications Generic Name Dose Route Start Last Admin Trade Name Freq PRN Reason Stop Dose Admin Acetaminophen 1,000 mg 03/17/20 17:29 03/22/20 17:43 Tylenol PO 1,000 mg Q6H PRN Administration Fever or Pain Albuterol Sulfate 2 puff 03/17/20 18:30 03/25/20 06:24 Proventil Hfa INH 2 puff [id number] NEHAL Administration Doxycycline Hyclate 100 mg 03/24/20 21:00 03/25/20 08:50 Vibramycin PO 04/03/20 21:01 100 mg BID NEHAL Administration Enoxaparin Sodium 40 mg 03/17/20 09:00 03/25/20 08:50 Lovenox SC 40 mg DAILY NEHAL Administration Guaifenesin/Dextromethorphan 15 ml 03/24/20 23:30 03/25/20 00:37 Diabetic Tussin Dm PO 15 ml Q4H PRN Administration Cough Pantoprazole Sodium 40 mg 03/17/20 09:00 03/25/20 08:50 Protonix PO 40 mg DAILY NEHAL Administration Prednisone 20 mg 03/25/20 08:00 03/25/20 08:50 Prednisone PO 20 mg QAM-WM NEHAL Administration - Exam General Appearance: NAD, awake alert ENT: moist mucosa ENT - other findings: high flow O2 in place Heart: RRR, no murmur, no gallops, no rubs Respiratory: CTAB, no wheezes, no rales, no ronchi Gastrointestinal: soft, non-tender, non-distended, normal bowel sounds Psychiatric: normal affect, normal behavior, A&O x 3 Hosp A/P (1) Acute respiratory failure with hypoxia Code(s): J96.01 - ACUTE RESPIRATORY FAILURE WITH HYPOXIA Status: Acute (2) Pneumonia due to COVID-19 virus Code(s): U07.1 - COVID-19; J12.89 - OTHER VIRAL PNEUMONIA Status: Acute (3) Hyperlipidemia Code(s): E78.5 - HYPERLIPIDEMIA, UNSPECIFIED Status: Chronic - Plan Continue Dexamethasone day 06/05, prophylactic Lovenox, switched azithromycin to doxycycline per Dr. Moran's recommendations Convalescent plasma ordered by Dr. Moran O2 sats improved today on high flow NC Oxygen 98-100% this AM Currently in the IMCU. Appreciate pulmonology assistance Intubation if deteriorates further.
--- NOTE | 2020-03-25 10:53 | PRG ---
DATE OF SERVICE: 03/25/2020 OBJECTIVE: VITAL SIGNS: Temperature 96, saturations 90% high-flow, blood pressure 106/71, respiratory rate 18. CHEST: No wheezing, crackles. CARDIAC: Normal S1, S2. No gallops. ABDOMEN: No masses. ASSESSMENT: Coronavirus positive pneumonia, respiratory failure, required high-flow. PLAN: She is on prednisone, antibiotics for at least 10 days. PT, supportive care. Once we can downsize her high-flow, she can probably be discharged home. We will follow. Job ID: [id number]
[2020-03-26] MEDS: Acetaminophen 500 MG TAB PO PRN ×3 (00:32→17:53)
[2020-03-26] MEDS: Albuterol 200 PUFF (6.7GM INHALER) INH SCH ×6 (02:22→22:16)
[2020-03-26] MEDS: Doxycycline 100 MG CAP PO SCH ×2 (08:51→20:37)
[2020-03-26] MEDS: Enoxaparin Sodium 40 MG/0.4 ML SYRINGE SC SCH (08:51)
[2020-03-26] MEDS: predniSONE 20 MG TAB PO SCH (08:51)
[2020-03-26] MEDS: Diabetic Tussin DM 5 ML UDCUP PO PRN ×3 (09:19→22:16)
--- NOTE | 2020-03-26 11:23 | PRG ---
DATE OF SERVICE: 03/26/2020 OBJECTIVE: VITAL SIGNS: A 49-year-old female, whose temperature 100.4, pulse 120, blood pressure 112/69, and saturations are 95%. CHEST: No wheezing. No crackles. CARDIAC: Normal S1 and S2. No gallops. ABDOMEN: No masses. ASSESSMENT: Coronavirus positive pneumonia. Low-grade fever. Continue low-dose steroids. Continue prednisone. Continue antibiotics. We will follow. Job ID: [id number]
[2020-03-26 11:46] LABS: #Eosinphils 0.2 thou/uL (0.0-0.7); #Lymphocytes 0.7 thou/uL (1.20-3.40); #Monocytes 0.2 thou/uL (0.11-0.59); #Neutrophils 15.4 thou/uL (1.40-6.50); %Basophils 0.1 % (0.0-1.0); %Lymphocytes 4.4 % (21.0-51.0); %Monocytes 1.3 % (0.0-10.0); %Neutrophils 93.2 % (42.0-75.0); Hemoglobin 11.3 g/dL (12.0-16.0); Mean Corpuscular HGB CONC 31.5 g/dL (32.0-36.0); Mean Corpuscular Hemoglobin 27.4 pg (27.0-31.0); Mean Corpuscular Volume 86.9 fL (78.0-98.0); Platelet Count 526 thou/uL (130-400); RBC Distribution Width 15.5 % (11.5-14.5); Red Blood Cell (RBC) Count 4.11 mill/uL (4.20-5.40); White Blood Cell (WBC) Count 16.6 thou/uL (4.8-10.8)
[2020-03-26 12:25] LABS: Troponin I Less than 0.010 ng/mL (< 0.028)
--- NOTE | 2020-03-26 12:30 | RAD ---
XR Chest 1 View Portable HISTORY: Dyspnea COMPARISON: 03/23/2020 FINDINGS: Diffuse bilateral airspace opacities are seen with interval worsening since the previous exam. No pne umothoraces are large effusions are noted. The heart size normal. IMPRESSION: Interval worsening since 03/23/2020
[2020-03-26 14:10] LABS: ALT (SGPT) 12 U/L (8-55); AST (SGOT) 16 U/L (5-34); Albumin 2.7 g/dL (3.5-5.0); Alkaline Phosphatase 76 U/L (40-110); Anion Gap 14 mmol/L (10-20); BUN (Urea Nitrogen) 13 mg/dL (9.8-20.1); Bilirubin, Total 0.5 mg/dL (0.2-1.2); Calc. Creatinine Clearance 105 mL/min (70-130); Calcium 8.3 mg/dL (7.8-10.44); Carbon Dioxide 22 mmol/L (22-29); Chloride 105 mmol/L (98-107); Estimated GFR-MDRD 88; Globulin 2.9 g/dL (2.4-3.5); Glucose 127 mg/dL (70-105); Potassium 3.4 mmol/L (3.5-5.1); Protein, Total 5.6 g/dL (6.0-8.3); Sodium 138 mmol/L (136-145)
[2020-03-26] MEDS ORDERED: Furosemide 20 MG/2 ML VIAL SLOW IVP SCH (15:11)
[2020-03-26] MEDS ORDERED: Potassium Chloride 20 MEQ TAB PO SCH (15:15)
--- NOTE | 2020-03-26 15:18 | PDOC.HOSPP ---
- Subjective Encounter Date: 03/26/20 Encounter Time: 13:00 Subjective: pt up in bed feels sob - Objective Vital Signs & Weight: Vital Signs (12 hours) Temp Pulse Ox 03/26/20 14:00 98.6 F 03/26/20 12:00 100.2 F H 03/26/20 08:00 100.5 F H 03/26/20 07:48 98 03/26/20 04:00 98.3 F Weight Admit Weight 155 lb 6.4 oz Weight 154 lb Most Recent Monitor Data Heart Rate from ECG 124 NIBP 105/70 NIBP BP-Mean 81 Respiration from ECG 30 SpO2 93 I&O: 03/25/20 03/26/20 03/27/20 06:59 06:59 06:59 Intake Total 1095 980 Output Total 1420 1100 200 Balance -325 -120 -200 Result Diagrams: 03/26/20 10:34 03/26/20 10:30 Hospitalist ROS - Review of Systems Respiratory: reports: shortness of breath Cardiovascular: denies: chest pain, palpitations, orthopnea, paroxysmal noc. dyspnea, edema, light headedness, other Gastrointestinal: denies: nausea, vomiting, abdominal pain, diarrhea, constipation, melena, hematochezia, other Genitourinary: denies: dysuria, frequency, incontinence, hematuria, retention, other - Medication Medications: Active Medications Generic Name Dose Route Start Last Admin Trade Name Freq PRN Reason Stop Dose Admin Acetaminophen 1,000 mg 03/17/20 17:29 03/26/20 09:19 Tylenol PO 1,000 mg Q6H PRN Administration Fever or Pain Albuterol Sulfate 2 puff 03/17/20 18:30 03/26/20 06:19 Proventil Hfa INH 2 puff [id number] NEHAL Administration Doxycycline Hyclate 100 mg 03/24/20 21:00 03/26/20 08:51 Vibramycin PO 04/03/20 21:01 100 mg BID NEHAL Administration Guaifenesin/Dextromethorphan 15 ml 03/24/20 23:30 03/26/20 09:19 Diabetic Tussin Dm PO 15 ml Q4H PRN Administration Cough Pantoprazole Sodium 40 mg 03/17/20 09:00 03/26/20 08:51 Protonix PO 40 mg DAILY NEHAL Administration Prednisone 20 mg 03/25/20 08:00 03/26/20 08:51 Prednisone PO 20 mg QAM-[facility] Administration - Exam Neck: negative: supple, symmetric, no JVD, no thyromegaly, no lymphadenopathy, no carotid bruit, JVD Heart: negative: RRR, no murmur, no gallops, no rubs, normal peripheral pulses, irregular, diminshed peripheral pulses, murmur present, II/IV, III/IV Respiratory: rales Gastrointestinal: negative: soft, non-tender, non-distended, normal bowel sounds , no palpable masses, no hepatomegaly, no splenomegaly, no bruit, no guarding, no rigidity, tender to palpation, distended, diminished bowl sounds, voluntary guarding Hosp A/P (1) Acute respiratory failure with hypoxia Code(s): J96.01 - ACUTE RESPIRATORY FAILURE WITH HYPOXIA Status: Acute (2) Hyperglycemia Code(s): R73.9 - HYPERGLYCEMIA, UNSPECIFIED Status: Acute (3) Pneumonia due to COVID-19 virus Code(s): U07.1 - COVID-19; J12.89 - OTHER VIRAL PNEUMONIA Status: Acute (4) Sinus tachycardia Code(s): R00.0 - TACHYCARDIA, UNSPECIFIED Status: Acute (5) Hyperlipidemia Code(s): E78.5 - HYPERLIPIDEMIA, UNSPECIFIED Status: Chronic - Plan pt was tested a week ago for covid. she is currently on high flow oxygen. pulmonary has started her on prednisone. will start pt on vit c and zinc. cxr done today appears worse. spoke with pt's daughter Layla and updated her. will give her a small dose of lasix since her bp is on the low side. will also give her albumin. She may improve or she may need to be intubated. Her crp has not improved much. will monitor.
[2020-03-26] MEDS ORDERED: Albumin 25% 25 GM/100 ML BOT IVPB SCH (15:30)
[2020-03-26 17:08] LABS: Troponin I 0.027 ng/mL (< 0.028)
[2020-03-26] MEDS: Enoxaparin Sodium 80 MG/0.8 ML SYRINGE SC SCH (20:37)
[2020-03-26 21:00] LABS: Troponin I 0.033 ng/mL (< 0.028)
[2020-03-27] MEDS: Albuterol 200 PUFF (6.7GM INHALER) INH SCH ×6 (03:24→22:33)
[2020-03-27 03:56] LABS: Hemoglobin 11.1 g/dL (12.0-16.0); Platelet Count 504 thou/uL (130-400)
[2020-03-27 04:01] LABS: INR-International Normal Ratio 1.2; PTT 34.8 sec (22.9-36.1)
[2020-03-27] MEDS: Diabetic Tussin DM 5 ML UDCUP PO PRN ×3 (06:17→20:59)
[2020-03-27] MEDS: Acetaminophen 500 MG TAB PO PRN ×3 (06:21→21:54)
[2020-03-27] MEDS: Enoxaparin Sodium 80 MG/0.8 ML SYRINGE SC SCH ×2 (08:08→19:59)
[2020-03-27] MEDS: Ascorbic Acid 500 mg Chewable Tablet PO SCH (08:09)
[2020-03-27] MEDS: predniSONE 20 MG TAB PO SCH (08:09)
[2020-03-27] MEDS: Doxycycline 100 MG CAP PO SCH ×2 (08:09→19:59)
[2020-03-27] MEDS: Zinc Sulfate 220 MG CAP PO SCH (08:09)
[2020-03-27] MEDS ORDERED: Furosemide 20 MG/2 ML VIAL SLOW IVP SCH (09:00)
--- NOTE | 2020-03-27 10:59 | PRG ---
DATE OF SERVICE: 03/27/2020 SUBJECTIVE: This morning, she is still requiring O2. OBJECTIVE: VITAL SIGNS: 94% sat, respiratory rate 30, and blood pressure X-ray shows extensive diffuse bilateral infiltrates. CHEST: Bilateral rhonchi and crackles. CARDIAC: Normal S1 and S2. No gallops. ABDOMEN: No masses. LABORATORY DATA: Platelet count is normal, H and H are stable, and white count 16,000. C-reactive protein was markedly elevated at 23. BNP is 10. ASSESSMENT: Respiratory failure, ARDS, and packer-positive pneumonia. PLAN: She has received plasma, steroids, and remdesivir. Continue supportive care. Continue doxy, prednisone. We will follow. Job ID: [id number]
[2020-03-27] MEDS ORDERED: Sodium Chloride 0.9% 1,000 ML IV SCH (17:45)
[2020-03-27] MEDS ORDERED: ALPRAZolam 0.25 MG TAB PO PRN (18:51)
--- NOTE | 2020-03-27 18:51 | PDOC.HOSPP ---
- Subjective Encounter Date: 03/27/20 Encounter Time: 14:00 Subjective: pt up in bed feels anxious. - Objective Vital Signs & Weight: Vital Signs (12 hours) Temp Pulse Ox 03/27/20 16:00 98.0 F 03/27/20 12:00 98.3 F 03/27/20 08:00 98.6 F 93 L Weight Admit Weight 155 lb 6.4 oz Weight 154 lb Most Recent Monitor Data Heart Rate from ECG 128 NIBP 103/64 NIBP BP-Mean 77 Respiration from ECG 44 SpO2 92 I&O: 03/26/20 03/27/20 03/28/20 06:59 06:59 06:59 Intake Total 980 930 680 Output Total 1100 1450 650 Balance -120 -520 30 Result Diagrams: 03/27/20 03:46 03/26/20 10:30 Hospitalist ROS - Medication Medications: Active Medications Generic Name Dose Route Start Last Admin Trade Name Freq PRN Reason Stop Dose Admin Acetaminophen 1,000 mg 03/17/20 17:29 03/27/20 16:16 Tylenol PO 1,000 mg Q6H PRN Administration Fever or Pain Albuterol Sulfate 2 puff 03/17/20 18:30 03/27/20 18:18 Proventil Hfa INH 2 puff [id number] NEHAL Administration Ascorbic Acid 1,000 mg 03/27/20 09:00 03/27/20 08:09 Vitamin C PO 1,000 mg DAILY NEHAL Administration Doxycycline Hyclate 100 mg 03/24/20 21:00 03/27/20 08:09 Vibramycin PO 04/03/20 21:01 100 mg BID NEHAL Administration Enoxaparin Sodium 70 mg 03/26/20 21:00 03/27/20 08:08 Lovenox SC 70 mg 0900,2100 NEHAL Administration Guaifenesin/Dextromethorphan 15 ml 03/24/20 23:30 03/27/20 16:16 Diabetic Tussin Dm PO 15 ml Q4H PRN Administration Cough Pantoprazole Sodium 40 mg 03/17/20 09:00 03/27/20 08:09 Protonix PO 40 mg DAILY NEHAL Administration Prednisone 20 mg 03/25/20 08:00 03/27/20 08:09 Prednisone PO 20 mg QAM-WM NEHAL Administration Zinc Sulfate 220 mg 03/27/20 09:00 03/27/20 08:09 Zinc Sulfate PO 220 mg DAILY NEHAL Administration Hosp A/P (1) Acute respiratory failure with hypoxia Code(s): J96.01 - ACUTE RESPIRATORY FAILURE WITH HYPOXIA Status: Acute (2) Hyperglycemia Code(s): R73.9 - HYPERGLYCEMIA, UNSPECIFIED Status: Acute (3) Pneumonia due to COVID-19 virus Code(s): U07.1 - COVID-19; J12.89 - OTHER VIRAL PNEUMONIA Status: Acute (4) Sinus tachycardia Code(s): R00.0 - TACHYCARDIA, UNSPECIFIED Status: Acute (5) Hyperlipidemia Code(s): E78.5 - HYPERLIPIDEMIA, UNSPECIFIED Status: Chronic - Plan pt was tested a week ago for covid. she is currently on high flow oxygen. pulmonary has started her on prednisone. will start pt on vit c and zinc. cxr done today appears worse. spoke with pt's daughter Layla and updated her. will give her a small dose of lasix since her bp is on the low side. will also give her albumin. She may improve or she may need to be intubated. Her crp has not improved much. will monitor. 03/27 pt still very sob and tachycardia. I will continue full dose AC for now. she has received plasma/steroid. she was downgraded to NC yest but last night she became hypoxic and was started back on high flow 50%. She is still on high flow. i have encouraged her to eat since she is not eating much i have encouraged her to drink more. i will give her a liter of ns. will hold off on lasix.
[2020-03-28 01:11] LABS: Actual Bicarbonate (HCO3a) 22.1 mEq/L (22-28); Base Excess (BEa) -1.9 mEq/L (-2.0 to +3.0); CO2 Tension 34.7 mmHg (35.0-45.0); Calcium, Ionized (arterial) 1.16 mmol/L (1.12-1.30); Carboxyhemoglobin (COHb) 0.3 gm% (0.0-3.0); Hemoglobin (Hb) 11.5 g/dL (12.0-16.0); Potassium - ABG Lab 3.87 mmol/L (3.70-5.30); pH, Arterial 7.42 (7.35-7.45)
[2020-03-28 01:13] LABS: ALV-art Gradient 477.825 (0-20); O2 Tension (PaO2), arterial 49.2 mmHg (80.0-100.0); Puncture Site LRA
[2020-03-28] MEDS: Albuterol 200 PUFF (6.7GM INHALER) INH SCH ×6 (04:09→23:15)
[2020-03-28 04:22] LABS: ALT (SGPT) 13 U/L (8-55); AST (SGOT) 21 U/L (5-34); Albumin 2.9 g/dL (3.5-5.0); Alkaline Phosphatase 90 U/L (40-110); Anion Gap 10 mmol/L (10-20); BUN (Urea Nitrogen) 11 mg/dL (9.8-20.1); Bilirubin, Total 0.5 mg/dL (0.2-1.2); Calc. Creatinine Clearance 124 mL/min (70-130); Calcium 8.4 mg/dL (7.8-10.44); Carbon Dioxide 25 mmol/L (22-29); Chloride 106 mmol/L (98-107); Estimated GFR-MDRD Greater than 90; Glucose 101 mg/dL (70-105); Potassium 3.9 mmol/L (3.5-5.1); Protein, Total 5.9 g/dL (6.0-8.3); Sodium 137 mmol/L (136-145)
[2020-03-28 05:27] LABS: Band 6 % (5-11); Eosinophils 1 % (0-10); Hemoglobin 11.5 g/dL (12.0-16.0); Lymphocytes 6 % (21-51); MDiff Complete? YES; Mean Corpuscular HGB CONC 31.6 g/dL (32.0-36.0); Mean Corpuscular Hemoglobin 27.6 pg (27.0-31.0); Mean Corpuscular Volume 87.2 fL (78.0-98.0); Mean Platelet Volume 7.4 fL (7.4-10.4); Monocytes 3 % (0-10); Neutrophil 84 % (42-75); Platelet Count 525 thou/uL (130-400); RBC Distribution Width 15.4 % (11.5-14.5); Red Blood Cell (RBC) Count 4.18 mill/uL (4.20-5.40); White Blood Cell (WBC) Count 23.3 thou/uL (4.8-10.8)
[2020-03-28] MEDS: Acetaminophen 500 MG TAB PO PRN (06:32)
[2020-03-28] MEDS ORDERED: Vancomycin HCl 1.5 GM in Sodium Chloride 0.9% 250 ML 300 ML IVPB SCH (06:45)
[2020-03-28] MEDS: Enoxaparin Sodium 80 MG/0.8 ML SYRINGE SC SCH ×2 (08:56→20:00)
[2020-03-28] MEDS: predniSONE 20 MG TAB PO SCH (08:57)
[2020-03-28] MEDS: Ascorbic Acid 500 mg Chewable Tablet PO SCH (08:57)
[2020-03-28] MEDS: Doxycycline 100 MG CAP PO SCH ×2 (08:57→20:00)
[2020-03-28] MEDS: Zinc Sulfate 220 MG CAP PO SCH (08:57)
--- NOTE | 2020-03-28 10:01 | PRG ---
DATE OF SERVICE: 03/28/2020 SUBJECTIVE: A 49-year-old female, whose condition has gone progressively worse. She is two weeks out with coronavirus. Yesterday talking to her daughter Layla who want everything to be done. OBJECTIVE: VITAL SIGNS: Temperature 101.8, pulse 131. She is on BiPAP this morning. High-flow. PO2 was only 50. BiPAP 13/9, sats are still 88 to 90. CHEST: Rhonchi, crackles. CARDIAC: Normal S1 and S2. No gallops. ABDOMEN: No masses. LABORATORY DATA: White count 20,000. H and H 11 and 36. PO2 of 49, pCO2 . Lytes are normal. ASSESSMENT: Worsening respiratory failure, possibly superimposed community-acquired pneumonia on top of coronavirus. C-reactive protein is increased to 33. We are going to transfer to the ICU. Intubated, prone position, steroids, supportive care. Prognosis remains guarded. One-half hour of critical time. Job ID: [id number]
--- NOTE | 2020-03-28 10:12 | RAD ---
PORTABLE CHEST: DATE: 03/28/2020. PROVIDED CLINICAL HISTORY: Pneumonia. FINDINGS: Comparison 03/26/2020. Persistent bilateral lung consolidation, appearing worsened with respect to the prior examination. Additional significant interval change with respect to the prior study is not ap parent. IMPRESSION: Persistent diffuse bilateral lung consolidation, appearing worsened with respect to the prior. POS: JEFF
[2020-03-28] MEDS ORDERED: Propofol 1,000 MG/100 ML VIAL IV ONE (10:31)
[2020-03-28] MEDS: Piperacillin/Tazobactam 3.375 GM in Sodium Chloride 0.9% 100 ML IVPB SCH ×3 (11:20→23:00)
[2020-03-28] MEDS ORDERED: Tocilizumab 400 MG in Sodium Chloride 0.9% 80 ML IV SCH (11:45)
[2020-03-28] MEDS: Lorazepam 2 MG/ML VIAL ONE ×2 (12:44→13:23)
[2020-03-28] MEDS: Vecuronium 10 MG VIAL ONE ×2 (12:44→14:33)
[2020-03-28 12:50] LABS: Actual Bicarbonate (HCO3a) 23.2 mEq/L (22-28); Base Excess (BEa) -2.7 mEq/L (-2.0 to +3.0); CO2 Tension 44.1 mmHg (35.0-45.0); Calcium, Ionized (arterial) 1.15 mmol/L (1.12-1.30); Carboxyhemoglobin (COHb) 0.3 gm% (0.0-3.0); Hemoglobin (Hb) 12.1 g/dL (12.0-16.0); Potassium - ABG Lab 4.51 mmol/L (3.70-5.30); pH, Arterial 7.34 (7.35-7.45)
[2020-03-28 12:55] LABS: O2 Tension (PaO2), arterial 54.6 mmHg (80.0-100.0)
[2020-03-28 13:01] LABS: ALV-art Gradient 603.275 (0-20)
[2020-03-28] MEDS ORDERED: Fentanyl BOLUS 250 ML IVPB PRN (13:21)
[2020-03-28] MEDS ORDERED: DISCONTINUE PREVIOUS NARCOTIC PAIN MEDICATIONS AND BENZODIAZEPINES FS SCH (13:21)
[2020-03-28] MEDS ORDERED: Morphine 2 MG/ML VIAL SLOW IVP PRN (13:21)
[2020-03-28] MEDS ORDERED: Propofol BOLUS 1,000 MG/100 ML VIAL IV PRN (13:21)
[2020-03-28] MEDS ORDERED: Lorazepam 2 MG/ML VIAL ONE (13:22)
[2020-03-28] MEDS: fentaNYL Citrate/PF 2,000 MCG in Sodium Chloride 0.9% 60 ML IV SCH (13:57)
[2020-03-28] MEDS ORDERED: Vecuronium 10 MG VIAL ONE (14:32)
[2020-03-28] MEDS: Lorazepam 2 MG/ML VIAL SLOW IVP PRN ×4 (14:33→22:06)
[2020-03-28] MEDS ORDERED: Albumin 25% 100 ML ONE (15:00)
[2020-03-28] MEDS: Albumin 25% 25 GM/100 ML BOT IVPB SCH ×2 (15:02→20:02)
[2020-03-28] MEDS: Vecuronium 10 MG VIAL IV PRN ×3 (16:11→21:15)
[2020-03-28 18:02] LABS: Bacteria/HPF None Seen HPF (None Seen); Bilirubin Negative (Negative); Blood, Urine Negative (Negative); Clarity Clear (Clear); Glucose, Urine (Dipstick) Normal (Negative); Ketone, Urine Negative (Negative); Leukocyte Negative Leu/uL (Negative); Nitrite Negative (Negative); Protein, Urine (Dipstick) 30 mg/dL (Neg-Trace); RBC/HPF 0-3 HPF (0-3); Specific Gravity, Urine 1.028 (1.002-1.036); Squamous Epithelial 0-3 HPF (0-3); Urobilinogen Normal mg/dL (Less than 2); WBC/HPF 0-3 HPF (0-3)
[2020-03-28 18:08] LABS: Urine Culture Reflex No No
--- NOTE | 2020-03-28 18:32 | PDOC.HOSPP ---
- Subjective Encounter Date: 03/28/20 Encounter Time: 15:00 Subjective: pt intubated - Objective Vital Signs & Weight: Vital Signs (12 hours) Temp Pulse Resp BP Pulse Ox 03/28/20 16:20 128 H 117/74 03/28/20 16:00 20 03/28/20 15:00 98.5 F 03/28/20 14:00 22 H 03/28/20 12:57 134 H 110/80 03/28/20 12:40 20 03/28/20 12:25 99.5 F 03/28/20 08:37 131 H 03/28/20 08:00 98.6 F 96 03/28/20 06:31 101.8 F H Weight Admit Weight 155 lb 6.4 oz Weight 154 lb Most Recent Monitor Data Heart Rate from ECG 126 NIBP 106/72 NIBP BP-Mean 83 Respiration from ECG 20 SpO2 100 I&O: 03/27/20 03/28/20 03/29/20 06:59 06:59 06:59 Intake Total 930 1080 1050.2 Output Total 1450 950 775 Balance -520 130 275.2 Result Diagrams: 03/28/20 03:24 03/28/20 03:24 Hospitalist ROS - Review of Systems Other: unable to obtain - Medication Medications: Active Medications Generic Name Dose Route Start Last Admin Trade Name Freq PRN Reason Stop Dose Admin Acetaminophen 1,000 mg 03/17/20 17:29 03/28/20 06:32 Tylenol PO 1,000 mg Q6H PRN Administration Fever or Pain Albumin Human 25 gm 03/28/20 15:15 03/28/20 15:02 Albumin 25% IVPB 03/29/20 15:16 Not Given Q6H NEHAL Albuterol Sulfate 2 puff 03/17/20 18:30 03/28/20 16:20 Proventil Hfa INH 2 puff [id number] NEHAL Administration Ascorbic Acid 1,000 mg 03/27/20 09:00 03/28/20 08:57 Vitamin C PO 1,000 mg DAILY NEHAL Administration Doxycycline Hyclate 100 mg 03/24/20 21:00 03/28/20 08:57 Vibramycin PO 04/03/20 21:01 100 mg BID NEHAL Administration Enoxaparin Sodium 70 mg 03/26/20 21:00 03/28/20 08:56 Lovenox SC 70 mg 0900,2100 NEHAL Administration Guaifenesin/Dextromethorphan 15 ml 03/24/20 23:30 03/27/20 20:59 Diabetic Tussin Dm PO 15 ml Q4H PRN Administration Cough Piperacillin Sod/Tazobactam 100 mls @ 200 mls/hr 03/28/20 12:00 03/28/20 17: 30 Sod 3.375 gm/ Sodium Chloride IVPB 100 mls Q6HR NEHAL Administration Vancomycin HCl 2 gm/ Sodium 500 mls @ 250 mls/hr 03/28/20 09:00 03/28/20 08: 58 Chloride IVPB 500 mls Q12HR NEHAL Administration Fentanyl Citrate 2,000 mcg/ 100 mls @ 0 mls/hr 03/28/20 13:21 03/28/20 13:57 Sodium Chloride IV 04/27/20 13:21 100 mls INF NEHAL Administration Protocol Per Protocol Lorazepam 2 mg 03/28/20 13:21 03/28/20 17:29 Ativan SLOW IVP 04/27/20 13:21 2 mg Q1H PRN Administration Breakthrough agitation Pantoprazole Sodium 40 mg 03/17/20 09:00 03/28/20 08:57 Protonix PO 40 mg DAILY NEHAL Administration Prednisone 20 mg 03/25/20 08:00 03/28/20 08:57 Prednisone PO 20 mg QAM-WM NEHAL Administration Sodium Chloride 10 ml 03/28/20 09:00 03/28/20 08:58 Flush - Normal Saline IVF 10 ml Q12HR NEHAL Administration Vecuronium [place] 10 mg 03/28/20 14:34 03/28/20 17:29 Norcuron IV 10 mg Q1H PRN Administration PARALYSIS Zinc Sulfate 220 mg 03/27/20 09:00 03/28/20 08:57 Zinc Sulfate PO 220 mg DAILY NEHAL Administration - Exam Neck: negative: supple, symmetric, no JVD, no thyromegaly, no lymphadenopathy, no carotid bruit, JVD Heart: negative: RRR, no murmur, no gallops, no rubs, normal peripheral pulses, irregular, diminshed peripheral pulses, murmur present, II/IV, III/IV Respiratory: negative: CTAB, no wheezes, no rales, no ronchi, normal chest expansion, no tachypnea, normal percussion, rales, rhonchi, tachypneic, wheezes Gastrointestinal: negative: soft, non-tender, non-distended, normal bowel sounds , no palpable masses, no hepatomegaly, no splenomegaly, no bruit, no guarding, no rigidity, tender to palpation, distended, diminished bowl sounds, voluntary guarding Extremities: negative: no cyanosis, no clubbing, no edema, 1+ LE edema, 2+ LE edema, clubbing Hosp A/P (1) Acute respiratory failure with hypoxia Code(s): J96.01 - ACUTE RESPIRATORY FAILURE WITH HYPOXIA Status: Acute (2) Hyperglycemia Code(s): R73.9 - HYPERGLYCEMIA, UNSPECIFIED Status: Acute (3) Pneumonia due to COVID-19 virus Code(s): U07.1 - COVID-19; J12.89 - OTHER VIRAL PNEUMONIA Status: Acute (4) Sinus tachycardia Code(s): R00.0 - TACHYCARDIA, UNSPECIFIED Status: Acute (5) Hyperlipidemia Code(s): E78.5 - HYPERLIPIDEMIA, UNSPECIFIED Status: Chronic - Plan pt was tested a week ago for covid. she is currently on high flow oxygen. pulmonary has started her on prednisone. will start pt on vit c and zinc. cxr done today appears worse. spoke with pt's daughter Layla and updated her. will give her a small dose of lasix since her bp is on the low side. will also give her albumin. She may improve or she may need to be intubated. Her crp has not improved much. will monitor. 03/27 pt still very sob and tachycardia. I will continue full dose AC for now. she has received plasma/steroid. she was downgraded to NC yest but last night she became hypoxic and was started back on high flow 50%. She is still on high flow. i have encouraged her to eat since she is not eating much i have encouraged her to drink more. i will give her a liter of ns. will hold off on lasix. 03/28 pt spiked a fever and had elevated wbc. blood cx/urine and xray ordered. pt became hypoxic. She was intubated. Broad spectrum abx started, she is on full dose AC, will check trops. ID consulted. pt's daughter called and updated. Her bp is marginal, she is getting albumin.
--- NOTE | 2020-03-28 18:56 | CON ---
DATE OF CONSULTATION: 03/28/2020 REASON FOR CONSULTATION: COVID pneumonia with persistence of fever. HISTORY OF PRESENT ILLNESS: A 49-year-old patient, who has a history of hyperlipidemia and was admitted on 03/16 with fever, body aches, and dyspnea. She had tested COVID positive on March 13 and she came to the emergency room because she was having a hard time breathing. On arrival, her BP was 126/74, pulse 112, respirations 29, and temperature 99.8, and O2 saturations were 95% on room air. The exam showed tachypnea, rhonchi present on upper lobes, and diminished breath sounds at the bases. Heart exam was normal except for tachycardia. Other elements of the examination were not particularly remarkable. Initial white cell count 5.4, hemoglobin 11, and platelets 238 with 84% neutrophils. Initial D-dimer 0.4. Sodium 139 and creatinine 0.71. Liver profile essentially normal. CK was normal. Albumin 3.3. Initial C-reactive protein was 24. She was given dexamethasone, azithromycin, nasal cannula O2, and inhalers. It does not look like she received any antiviral treatment initially. On 03/22, her flow rate was increased to 5 L per nasal cannula and she felt a little bit less dyspneic. On 03/26, she was still feeling dyspneic and this is approximately 14 days after her COVID illness onset. She was transitioned to prednisone from Decadron for some reason. On 03/27, she was anxious and on high-flow oxygen and she has according to Dr. Kaye's note, she had received plasma, which is basically convalescent plasma and now she had to be intubated and she is in the prone position and a 90% FiO2 with bilevel, so there was really precipitous deterioration. PAST MEDICAL HISTORY: Hyperlipidemia. SOCIAL HISTORY: Never smoker. ALLERGIES: NONE. CURRENT MEDICATIONS: 1. Tylenol. 2. Albumin. 3. Proventil. 4. Vitamin C. 5. Vibramycin. 6. Lovenox. 7. Fentanyl. 8. Lorazepam. 9. Pantoprazole. 10. Zosyn. 11. Prednisone. 12. Diprivan. 13. Tocilizumab. 14. Vancomycin. 15. Zinc. PHYSICAL EXAMINATION: VITAL SIGNS: She has had intermittent low-grade temperature elevation about five times since 03/26 and her BP 106/72, O2 saturations are 100, and heart rate 126. SKIN: Her skin exam shows a Marshall catheter. She does not have any central line and lower tracheal intubation. She is in the prone position. HEENT: The eyes are taped. LUNGS: With symmetric expansion and fairly clear breath sounds, maybe very faint inspiratory crackles. No wheezing. EXTREMITIES: Somewhat cool extremities. Trace edema. LABORATORY DATA: The latest labs, sodium 137 and creatinine 0.59. Liver profile normal. CRP has increased from 24 to 33. The ferritin is up from 95 to 294 and D-dimer is up from 0.4 to 6.16. The chest x-ray shows worsening with diffuse bilateral pulmonary infiltrates. She has received tocilizumab now. ASSESSMENT AND PLAN: Hyperlipidemia with COVID pneumonia going onto her, I believe 15th or 16th day of illness, now with worsening and development of likely acute respiratory distress syndrome, going to her inflammatory phase of illness. I do not see that she received antiviral treatment at the onset when she was just admitted. She may have been a candidate at that time, but now she is clearly in the inflammatory phase of illness, where there is really less viral replication and most of the damage is due to the enhanced inflammatory activity and cytokine storm sort of associated with the hypercoagulable condition, she is on proper anticoagulation though. So, I believe this is more likely due to diffuse alveolar damage from the inflammatory process. She is already on broad-spectrum coverage and evidently in this sort of situation, the mortality rates are quite high at least 50%. Job ID: [id number] MTDFernando
[2020-03-28] MEDS: Sodium Chloride 0.9% 1,000 ML IV SCH (19:17)
[2020-03-29] MEDS: Albuterol 200 PUFF (6.7GM INHALER) INH SCH ×6 (02:08→22:46)
[2020-03-29] MEDS: Albumin 25% 25 GM/100 ML BOT IVPB SCH ×3 (02:17→14:39)
[2020-03-29] MEDS: Acetaminophen 500 MG TAB PO PRN (02:32)
[2020-03-29 03:57] LABS: #Eosinphils 0.1 thou/uL (0.0-0.7); #Lymphocytes 1.2 thou/uL (1.20-3.40); #Monocytes 0.3 thou/uL (0.11-0.59); #Neutrophils 8.7 thou/uL (1.40-6.50); %Basophils 0.1 % (0.0-1.0); %Eosinophils 0.5 % (0.0-10.0); %Lymphocytes 11.7 % (21.0-51.0); %Monocytes 2.8 % (0.0-10.0); %Neutrophils 84.9 % (42.0-75.0); Hemoglobin 8.2 g/dL (12.0-16.0); Mean Corpuscular HGB CONC 30.1 g/dL (32.0-36.0); Mean Corpuscular Hemoglobin 26.5 pg (27.0-31.0); Mean Corpuscular Volume 87.9 fL (78.0-98.0); Mean Platelet Volume 7.6 fL (7.4-10.4); Platelet Count 415 thou/uL (130-400); RBC Distribution Width 15.3 % (11.5-14.5); Red Blood Cell (RBC) Count 3.09 mill/uL (4.20-5.40); White Blood Cell (WBC) Count 10.3 thou/uL (4.8-10.8)
[2020-03-29 04:10] LABS: Anion Gap 12 mmol/L (10-20); BUN (Urea Nitrogen) 13 mg/dL (9.8-20.1); Calc. Creatinine Clearance 118 mL/min (70-130); Calcium 8.1 mg/dL (7.8-10.44); Carbon Dioxide 24 mmol/L (22-29); Chloride 109 mmol/L (98-107); Estimated GFR-MDRD Greater than 90; Glucose 88 mg/dL (70-105); Sodium 141 mmol/L (136-145)
[2020-03-29 04:13] LABS: ALT (SGPT) 13 U/L (8-55); AST (SGOT) 14 U/L (5-34); Albumin 3.5 g/dL (3.5-5.0); Alkaline Phosphatase 61 U/L (40-110); Anion Gap 10 mmol/L (10-20); BUN (Urea Nitrogen) 13 mg/dL (9.8-20.1); Bilirubin, Direct 0.2 mg/dL (0.1-0.3); Bilirubin, Total 0.4 mg/dL (0.2-1.2); Calc. Creatinine Clearance 120 mL/min (70-130); Carbon Dioxide 25 mmol/L (22-29); Chloride 109 mmol/L (98-107); Estimated GFR-MDRD Greater than 90; Globulin 2.2 g/dL (2.4-3.5); Glucose 90 mg/dL (70-105); Protein, Total 5.7 g/dL (6.0-8.3); Sodium 140 mmol/L (136-145)
[2020-03-29] MEDS: Piperacillin/Tazobactam 3.375 GM in Sodium Chloride 0.9% 100 ML IVPB SCH ×3 (05:00→17:51)
[2020-03-29] MEDS: Propofol 1,000 MG/100 ML VIAL IV PRN ×2 (05:22→12:20)
[2020-03-29 07:36] LABS: CO2 Tension 40.6 mmHg (35.0-45.0); Calcium, Ionized (arterial) 1.16 mmol/L (1.12-1.30); Carboxyhemoglobin (COHb) 0.2 gm% (0.0-3.0); Hemoglobin (Hb) 6.6 g/dL (12.0-16.0); Potassium - ABG Lab 3.64 mmol/L (3.70-5.30); pH, Arterial 7.37 (7.35-7.45)
[2020-03-29 07:37] LABS: O2 Tension (PaO2), arterial 59.5 mmHg (80.0-100.0); Puncture Site RRA
[2020-03-29] MEDS: Ascorbic Acid 500 mg Chewable Tablet PO SCH (07:43)
[2020-03-29] MEDS: predniSONE 20 MG TAB PO SCH (07:43)
[2020-03-29] MEDS: Enoxaparin Sodium 80 MG/0.8 ML SYRINGE SC SCH ×2 (07:44→21:47)
[2020-03-29] MEDS: Zinc Sulfate 220 MG CAP PO SCH (07:44)
[2020-03-29] MEDS: Doxycycline 100 MG CAP PO SCH ×2 (07:44→22:00)
[2020-03-29] MEDS: Lorazepam 2 MG/ML VIAL SLOW IVP PRN ×5 (07:45→17:52)
--- NOTE | 2020-03-29 08:26 | RAD ---
PORTABLE CHEST: DATE: 03/29/2020. PROVIDED CLINICAL HISTORY: Respiratory insufficiency. FINDINGS: Comparison 03/28/2020. Interval worsening of bilateral airspace disease with near-complete opacificati on of both hemithoraces. Interval placement of enteric catheter and endotracheal tube with tips proj ecting in the left upper quadrant and approximating the josue respectively. No evidence for pneumot horax. IMPRESSION: 1. Support apparatus as described. 2. Near-complete opacification of both hemithoraces. POS: JEFF
--- NOTE | 2020-03-29 16:57 | PDOC.HOSPP ---
- Subjective Encounter Date: 03/29/20 Encounter Time: 16:30 Subjective: f/u for COVID [facility] with FIO2 70% receiving Prednisone /Albuterol/Doxycycline/Zosyn/Lovenox. BP improved per nursing. - Objective Vital Signs & Weight: Vital Signs (12 hours) Temp Pulse Resp BP 03/29/20 16:00 99.2 F 03/29/20 15:03 89 138/76 03/29/20 14:00 03/29/20 12:00 99.5 F 03/29/20 10:09 95 118/61 03/29/20 10:00 03/29/20 08:00 99.4 F 03/29/20 07:29 99 99/63 03/29/20 06:00 20 Weight Admit Weight 155 lb 6.4 oz Weight 154 lb Most Recent Monitor Data Heart Rate from ECG 92 NIBP 98/83 NIBP BP-Mean 88 Respiration from ECG 17 SpO2 95 I&O: 03/28/20 03/29/20 03/30/20 06:59 06:59 06:59 Intake Total 1080 2974.8 220 Output Total 950 1750 635 Balance 130 1224.8 -415 Result Diagrams: 03/29/20 03:35 03/29/20 03:35 Additional Labs: Microbiology 03/28/20 07:40 Venous blood - Right Hand Blood Culture - Preliminary Specimen has been received and culture in progress. No Growth to date. 03/28/20 07:40 Venous blood - Left Hand Blood Culture - Preliminary Specimen has been received and culture in progress. No Growth to date. 03/16/20 23:00 Venous blood - Right Arm Blood Culture - Preliminary NO GROWTH AT 48 HOURS 03/16/20 23:00 Venous blood - Left Arm Blood Culture - Preliminary NO GROWTH AT 48 HOURS Laboratory Tests 03/16/20 03/17/20 03/17/20 23:00 01:00 01:00 WBC D-Dimer 0.40 Lactic Acid 1.9 Ferritin 95.37 C-Reactive Protein 03/17/20 03/26/20 03/26/20 01:00 10:34 10:35 WBC 16.6 H D-Dimer Lactic Acid Ferritin C-Reactive Protein 24.66 H 23.31 H 03/26/20 03/28/20 03/28/20 10:35 03:24 06:11 WBC 23.3 H D-Dimer Lactic Acid Ferritin 174.41 C-Reactive Protein 33.60 H 03/28/20 03/28/20 03/29/20 06:11 10:57 03:35 WBC D-Dimer 6.16 H Lactic Acid Ferritin 294.98 H C-Reactive Protein 32.00 H 03/29/20 03:35 WBC D-Dimer 3.39 H Lactic Acid Ferritin C-Reactive Protein Radiology Reviewed by me: Yes (PCXR - opacities bilat lung harrison, lines/tube in place) EKG Reviewed by me: Yes (Tele - SR in 's) Hospitalist ROS - Medication Medications: Active Medications Generic Name Dose Route Start Last Admin Trade Name Freq PRN Reason Stop Dose Admin Acetaminophen 1,000 mg 03/17/20 17:29 03/29/20 02:32 Tylenol PO 1,000 mg Q6H PRN Administration Fever or Pain Albuterol Sulfate 2 puff 03/17/20 18:30 03/29/20 14:57 Proventil Hfa INH 2 puff [id number] NEHAL Administration Ascorbic Acid 1,000 mg 03/27/20 09:00 03/29/20 07:43 Vitamin C PO 1,000 mg DAILY NEHAL Administration Doxycycline Hyclate 100 mg 03/24/20 21:00 03/29/20 07:44 Vibramycin PO 04/03/20 21:01 100 mg BID NEHAL Administration Enoxaparin Sodium 70 mg 03/26/20 21:00 03/29/20 07:44 Lovenox SC 70 mg 0900,2100 NEHAL Administration Guaifenesin/Dextromethorphan 15 ml 03/24/20 23:30 03/27/20 20:59 Diabetic Tussin Dm PO 15 ml Q4H PRN Administration Cough Piperacillin Sod/Tazobactam 100 mls @ 200 mls/hr 03/28/20 12:00 03/29/20 12: 20 Sod 3.375 gm/ Sodium Chloride IVPB 100 mls Q6HR NEHAL Administration Vancomycin HCl 2 gm/ Sodium 500 mls @ 250 mls/hr 03/28/20 09:00 03/29/20 08: 01 Chloride IVPB 500 mls Q12HR NEHAL Administration Fentanyl Citrate 2,000 mcg/ 100 mls @ 0 mls/hr 03/28/20 13:21 07/03/20 13:57 Sodium Chloride IV 04/27/20 13:21 100 mls INF NEHAL Administration Protocol Per Protocol Sodium Chloride 1,000 mls @ 50 mls/hr 03/28/20 19:00 03/28/20 19:17 Normal Saline 0.9% IV 1,000 mls .Q20H NEHAL Administration Lorazepam 2 mg 03/28/20 13:21 03/29/20 15:41 Ativan SLOW IVP 04/27/20 13:21 2 mg Q1H PRN Administration Breakthrough agitation Pantoprazole Sodium 40 mg 03/17/20 09:00 03/29/20 07:44 Protonix PO 40 mg DAILY NEHAL Administration Prednisone 20 mg 03/25/20 08:00 03/29/20 07:43 Prednisone PO 20 mg QAM-WM NEHAL Administration Propofol 1,000 mg 03/28/20 13:21 03/29/20 12:20 Diprivan IV 04/27/20 13:21 1,000 mg INF PRN Administration TO ACHIEVE GOAL RASS Protocol Sodium Chloride 10 ml 03/28/20 09:00 03/29/20 07:46 Flush - Normal Saline IVF Not Given Q12HR NEHAL Vecuronium [place] 10 mg 03/28/20 14:34 03/28/20 21:15 Norcuron IV 10 mg Q1H PRN Administration PARALYSIS Zinc Sulfate 220 mg 03/27/20 09:00 03/29/20 07:44 Zinc Sulfate PO 220 mg DAILY NEHAL Administration - Exam General - other findings: sedate on mech vent Eye: PERRL, anicteric sclera ENT: normocephalic atraumatic, no oropharyngeal lesions ENT - other findings: ETT in place Neck: supple, symmetric, no JVD, no thyromegaly Heart: RRR, no murmur, no gallops, no rubs, normal peripheral pulses Respiratory - other findings: diminished bilat Gastrointestinal: soft, non-tender, non-distended, normal bowel sounds, no palpable masses Extremities: no cyanosis, no clubbing, no edema Skin: normal turgor, no lesions Musculoskeletal: no muscle wasting Psychiatric: somnolent Psychiatric - other findings: sedate on mech vent Hosp A/P (1) Pneumonia due to COVID-19 virus Code(s): U07.1 - COVID-19; J12.89 - OTHER VIRAL PNEUMONIA Status: Acute Plan: Continue Doxycycline/Zosyn/Prednisone/Lovenox/Albuterol, received convalescent plasma and Remdesivir x 1 (2) Acute respiratory failure with hypoxia Code(s): J96.01 - ACUTE RESPIRATORY FAILURE WITH HYPOXIA Status: Acute Plan: continue mech ventilation with SIMV currently FIO2 70%, serial ABG/PCXR (3) Hyperglycemia Code(s): R73.9 - HYPERGLYCEMIA, UNSPECIFIED Status: Acute Plan: Improved, serial monitoring (4) Hypotension Status: Acute Plan: Likely multifactorial including PNA/COVID and Propofol, improved overall today, close monitoring, s/p Albumin infusion (5) Sinus tachycardia Code(s): R00.0 - TACHYCARDIA, UNSPECIFIED Status: Acute - Plan plan discussed w/ family, continue antibiotics, [employer]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
--- NOTE | 2020-03-29 21:10 | PRG ---
DATE OF SERVICE: 03/29/2020 SUBJECTIVE: Charo Godfrey is in supine position again today. She is tolerating this so far. OBJECTIVE: VITAL SIGNS: Heart rate is in 70s, blood pressure 153/80, and respiratory rates in the teens to low 20s. LUNGS: Unchanged. HEART: Unchanged. ABDOMEN: Unchanged. LABORATORY DATA: White count 10.3, hemoglobin 8.2, and platelets 415. Electrolytes are unremarkable. A pH of 7.37, CO2 of 40, and pO2 of 59. She is still on bilevel. IMPRESSION AND PLAN: Respiratory failure associated with COVID-19 pneumonia, stable, but critical condition. We will continue supportive care. Critical care time 30 min. Job ID: [id number] MTDD
[2020-03-29] MEDS: Sodium Chloride 0.9% 1,000 ML IV SCH (21:47)
[2020-03-29] MEDS: methylPREDNISolone Sod Succ/PF 125 MG/2 ML VIAL IVP SCH (21:48)
[2020-03-29 23:05] LABS: Vancomycin, Trough 15.4 ug/mL
[2020-03-30] MEDS: Piperacillin/Tazobactam 3.375 GM in Sodium Chloride 0.9% 100 ML IVPB SCH ×5 (01:19→23:19)
[2020-03-30] MEDS: Albuterol 200 PUFF (6.7GM INHALER) INH SCH ×6 (03:28→23:28)
[2020-03-30] MEDS: Propofol 1,000 MG/100 ML VIAL IV PRN ×6 (03:31→21:39)
[2020-03-30] MEDS: fentaNYL Citrate/PF 2,000 MCG in Sodium Chloride 0.9% 60 ML IV SCH ×2 (03:32→23:31)
[2020-03-30] MEDS: Vecuronium 10 MG VIAL IV PRN ×2 (04:43→15:52)
[2020-03-30 05:10] LABS: #Eosinphils 0.1 thou/uL (0.0-0.7); #Lymphocytes 1.8 thou/uL (1.20-3.40); #Monocytes 0.3 thou/uL (0.11-0.59); #Neutrophils 13.3 thou/uL (1.40-6.50); %Basophils 0.2 % (0.0-1.0); %Eosinophils 0.4 % (0.0-10.0); %Lymphocytes 11.7 % (21.0-51.0); %Monocytes 1.7 % (0.0-10.0); %Neutrophils 86.1 % (42.0-75.0); Hemoglobin 10.9 g/dL (12.0-16.0); Mean Corpuscular HGB CONC 31.2 g/dL (32.0-36.0); Mean Corpuscular Hemoglobin 27.7 pg (27.0-31.0); Mean Platelet Volume 7.5 fL (7.4-10.4); Platelet Count 592 thou/uL (130-400); RBC Distribution Width 15.4 % (11.5-14.5); Red Blood Cell (RBC) Count 3.94 mill/uL (4.20-5.40); White Blood Cell (WBC) Count 15.4 thou/uL (4.8-10.8)
[2020-03-30 05:32] LABS: ALT (SGPT) 16 U/L (8-55); AST (SGOT) 18 U/L (5-34); Albumin 3.9 g/dL (3.5-5.0); Alkaline Phosphatase 95 U/L (40-110); Anion Gap 14 mmol/L (10-20); BUN (Urea Nitrogen) 17 mg/dL (9.8-20.1); Bilirubin, Direct 0.3 mg/dL (0.1-0.3); Bilirubin, Total 0.4 mg/dL (0.2-1.2); CRP (Inflammatory) 15.37 mg/dL (= or < 0.5); Calc. Creatinine Clearance 101 mL/min (70-130); Calcium 8.6 mg/dL (7.8-10.44); Carbon Dioxide 22 mmol/L (22-29); Chloride 109 mmol/L (98-107); Estimated GFR-MDRD 84; Glucose 134 mg/dL (70-105); Potassium 4.3 mmol/L (3.5-5.1); Protein, Total 6.5 g/dL (6.0-8.3); Sodium 141 mmol/L (136-145)
[2020-03-30 07:23] LABS: Actual Bicarbonate (HCO3a) 21.1 mEq/L (22-28); Base Excess (BEa) -5.9 mEq/L (-2.0 to +3.0); CO2 Tension 48.3 mmHg (35.0-45.0); Calcium, Ionized (arterial) 1.23 mmol/L (1.12-1.30); Carboxyhemoglobin (COHb) 0.1 gm% (0.0-3.0); Hemoglobin (Hb) 10.2 g/dL (12.0-16.0); O2 Tension (PaO2), arterial 61.3 mmHg (80.0-100.0); Potassium - ABG Lab 3.97 mmol/L (3.70-5.30); pH, Arterial 7.26 (7.35-7.45)
--- NOTE | 2020-03-30 07:57 | RAD ---
PORTABLE CHEST: DATE: 03/30/2020. PROVIDED CLINICAL HISTORY: I Respiratory insufficiency. FINDINGS: Improved aeration bilaterally. Additional significant interval change with respect to the prior exam ination is not apparent. IMPRESSION: As above. POS: JEFF
[2020-03-30] MEDS: Sodium Chloride 0.9% 1,000 ML IV SCH ×2 (08:13→16:28)
[2020-03-30] MEDS: methylPREDNISolone Sod Succ/PF 125 MG/2 ML VIAL IVP SCH ×2 (08:13→20:47)
[2020-03-30] MEDS: Ascorbic Acid 500 mg Chewable Tablet PO SCH (08:14)
[2020-03-30] MEDS: Enoxaparin Sodium 80 MG/0.8 ML SYRINGE SC SCH ×2 (08:14→20:47)
[2020-03-30] MEDS: Zinc Sulfate 220 MG CAP PO SCH (08:14)
[2020-03-30 08:19] LABS: Puncture Site RRA
[2020-03-30 08:21] LABS: ALV-art Gradient 377.425 (0-20)
[2020-03-30] MEDS: Doxycycline 100 MG CAP PO SCH ×2 (11:13→21:04)
--- NOTE | 2020-03-30 14:18 | PDOC.HOSPP ---
- Subjective Encounter Date: 03/30/20 Encounter Time: 14:00 Subjective: f/u for COVID-19 PNA on mech ventilation with current Bilevel and FIO2 60%. No new events reported. Receiving Doxycycline/Zosyn/Solumedrol/Albuterol. - Objective Vital Signs & Weight: Vital Signs (12 hours) Temp Pulse Resp BP Pulse Ox 03/30/20 12:00 99.1 F 22 H 03/30/20 10:49 95 107/56 L 03/30/20 10:00 25 H 03/30/20 08:00 22 H 99 03/30/20 07:16 90 104/58 L 03/30/20 07:00 97.7 F 03/30/20 04:00 38 H 03/30/20 03:06 84 166/88 H Weight Admit Weight 155 lb 6.4 oz Weight 154 lb Most Recent Monitor Data Heart Rate from ECG 86 NIBP 111/57 NIBP BP-Mean 75 Respiration from ECG 22 SpO2 94 I&O: 03/29/20 03/30/20 03/31/20 06:59 06:59 06:59 Intake Total 2974.8 2622.55 280 Output Total 1750 1480 385 Balance 1224.8 1142.55 -105 Result Diagrams: 03/30/20 05:02 03/30/20 05:02 Additional Labs: Microbiology 03/28/20 07:40 Venous blood - Right Hand Blood Culture - Preliminary Specimen has been received and culture in progress. No Growth to date. 03/28/20 07:40 Venous blood - Left Hand Blood Culture - Preliminary Specimen has been received and culture in progress. No Growth to date. 03/16/20 23:00 Venous blood - Right Arm Blood Culture - Preliminary NO GROWTH AT 48 HOURS 03/16/20 23:00 Venous blood - Left Arm Blood Culture - Preliminary NO GROWTH AT 48 HOURS Laboratory Tests 03/16/20 03/17/20 03/17/20 23:00 01:00 01:00 WBC D-Dimer 0.40 Lactic Acid 1.9 Ferritin 95.37 C-Reactive Protein 03/17/20 03/26/20 03/26/20 01:00 10:34 10:35 WBC 16.6 H D-Dimer Lactic Acid Ferritin C-Reactive Protein 24.66 H 23.31 H 03/26/20 03/28/20 03/28/20 10:35 03:24 06:11 WBC 23.3 H D-Dimer Lactic Acid Ferritin 174.41 C-Reactive Protein 33.60 H 03/28/20 03/28/20 03/29/20 06:11 10:57 03:35 WBC D-Dimer 6.16 H Lactic Acid Ferritin 294.98 H C-Reactive Protein 32.00 H 03/29/20 03:35 WBC D-Dimer 3.39 H Lactic Acid Ferritin C-Reactive Protein Radiology Reviewed by me: Yes (PCXR - improving aeration bilat) EKG Reviewed by me: Yes (Tele - SR) Hospitalist ROS - Medication Medications: Active Medications Generic Name Dose Route Start Last Admin Trade Name Freq PRN Reason Stop Dose Admin Acetaminophen 1,000 mg 03/17/20 17:29 03/29/20 02:32 Tylenol PO 1,000 mg Q6H PRN Administration Fever or Pain Albuterol Sulfate 2 puff 03/17/20 18:30 03/30/20 10:52 Proventil Hfa INH 2 puff [id number] NEHAL Administration Ascorbic Acid 1,000 mg 03/27/20 09:00 03/30/20 08:14 Vitamin C PO 1,000 mg DAILY NEHAL Administration Doxycycline Hyclate 100 mg 03/24/20 21:00 03/30/20 11:13 Vibramycin PO 04/03/20 21:01 100 mg BID NEHAL Administration Enoxaparin Sodium 70 mg 03/26/20 21:00 03/30/20 08:14 Lovenox SC 70 mg 0900,2100 NEHAL Administration Guaifenesin/Dextromethorphan 15 ml 03/24/20 23:30 03/27/20 20:59 Diabetic Tussin Dm PO 15 ml Q4H PRN Administration Cough Piperacillin Sod/Tazobactam 100 mls @ 200 mls/hr 03/28/20 12:00 03/30/20 11: 13 Sod 3.375 gm/ Sodium Chloride IVPB 100 mls Q6HR NEHAL Administration Vancomycin HCl 2 gm/ Sodium 500 mls @ 250 mls/hr 03/28/20 09:00 03/30/20 11: 25 Chloride IVPB 500 mls Q12HR NEHAL Administration Fentanyl Citrate 2,000 mcg/ 100 mls @ 0 mls/hr 03/28/20 13:21 03/30/20 03:32 Sodium Chloride IV 04/27/20 13:21 100 mls INF NEHAL Administration Protocol Per Protocol Sodium Chloride 1,000 mls @ 50 mls/hr 03/28/20 19:00 03/30/20 08:13 Normal Saline 0.9% IV 1,000 mls .Q20H NEHAL Administration Lorazepam 2 mg 03/28/20 13:21 03/29/20 17:52 Ativan SLOW IVP 04/27/20 13:21 2 mg Q1H PRN Administration Breakthrough agitation Methylprednisolone Sodium Succinate 80 mg 03/29/20 21:00 03/30/20 08:13 Solu-Medrol IVP 80 mg Q12HR NEHAL Administration Pantoprazole Sodium 40 mg 03/17/20 09:00 03/30/20 08:14 Protonix PO 40 mg DAILY NEHAL Administration Propofol 1,000 mg 03/28/20 13:21 03/30/20 12:15 Diprivan IV 04/27/20 13:21 1,000 mg INF PRN Administration TO ACHIEVE GOAL RASS Protocol Sodium Chloride 10 ml 03/28/20 09:00 03/30/20 08:15 Flush - Normal Saline IVF 10 ml Q12HR NEHAL Administration Vecuronium [place] 10 mg 03/28/20 14:34 03/30/20 04:43 Norcuron IV 10 mg Q1H PRN Administration PARALYSIS Zinc Sulfate 220 mg 03/27/20 09:00 03/30/20 08:14 Zinc Sulfate PO 220 mg DAILY NEHAL Administration - Exam General - other findings: sedate on mech ventilation Eye: PERRL, anicteric sclera ENT: normocephalic atraumatic, no oropharyngeal lesions ENT - other findings: ETT in place Neck: supple, symmetric, no JVD, no thyromegaly, no lymphadenopathy Heart: RRR, no murmur, no gallops, no rubs, normal peripheral pulses Heart - other findings: S1, S2 Respiratory: CTAB, normal chest expansion, tachypneic Gastrointestinal: soft, non-tender, non-distended, normal bowel sounds, no palpable masses Extremities: no cyanosis, no clubbing, no edema Skin: normal turgor, no lesions Psychiatric: somnolent, lethargic Hosp A/P (1) Pneumonia due to COVID-19 virus Code(s): U07.1 - COVID-19; J12.89 - OTHER VIRAL PNEUMONIA Status: Acute Plan: Continue pulmonary support, Doxycycline/Zosyn/Albuterol/Solumedrol (2) Acute respiratory failure with hypoxia Code(s): J96.01 - ACUTE RESPIRATORY FAILURE WITH HYPOXIA Status: Acute Plan: continue Bilevel with mech ventilation FIO2 60% (3) Hyperglycemia Code(s): R73.9 - HYPERGLYCEMIA, UNSPECIFIED Status: Acute (4) Hypotension Status: Acute Plan: Resolved, likely iatrogenic (5) Sinus tachycardia Code(s): R00.0 - TACHYCARDIA, UNSPECIFIED Status: Acute Plan: Improved, current SR - 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
--- NOTE | 2020-03-30 14:31 | PRG ---
DATE OF SERVICE: 03/30/2020 SUBJECTIVE: Charo Godfrey remains mechanically ventilated. She has not had to be . OBJECTIVE: VITAL SIGNS: Heart rate is in the 90s, blood pressure 108/58, respiratory rates in the 20s, oximetry is in the low 90s%. LUNGS: Unchanged. HEART: Unchanged. ABDOMEN: Unchanged. DIAGNOSTIC STUDIES: Chest radiograph actually is improved. LABORATORY DATA: White count 15.4, hemoglobin 10.9, platelets 592. Electrolytes are unremarkable. C-reactive protein is down from 32 yesterday to 15 today. Ferritin is down to 200. IMPRESSION: COVID-19 with respiratory failure, clinically slowly improving. Blood gas today shows a pH 7.26, CO2 of 48, PO2 of 61. We will continue with bilevel ventilatory support. We will continue to try to gradually adjust her high PEEP and her FiO2 downward. FiO2 is down to 60%. Job ID: [id number]
[2020-03-31] MEDS: Propofol 1,000 MG/100 ML VIAL IV PRN ×5 (02:15→19:49)
[2020-03-31] MEDS: Albuterol 200 PUFF (6.7GM INHALER) INH SCH ×6 (02:53→22:05)
[2020-03-31 03:43] LABS: #Lymphocytes 0.5 thou/uL (1.20-3.40); #Monocytes 0.4 thou/uL (0.11-0.59); #Neutrophils 8.5 thou/uL (1.40-6.50); %Basophils 0.3 % (0.0-1.0); %Eosinophils 0.2 % (0.0-10.0); %Lymphocytes 5.6 % (21.0-51.0); %Monocytes 4.5 % (0.0-10.0); %Neutrophils 89.4 % (42.0-75.0); Hemoglobin 9.4 g/dL (12.0-16.0); Mean Corpuscular HGB CONC 32.4 g/dL (32.0-36.0); Mean Corpuscular Volume 86.4 fL (78.0-98.0); Mean Platelet Volume 7.9 fL (7.4-10.4); Platelet Count 404 thou/uL (130-400); RBC Distribution Width 15.4 % (11.5-14.5); Red Blood Cell (RBC) Count 3.37 mill/uL (4.20-5.40); White Blood Cell (WBC) Count 9.5 thou/uL (4.8-10.8)
[2020-03-31 04:04] LABS: Anion Gap 12 mmol/L (10-20); BUN (Urea Nitrogen) 20 mg/dL (9.8-20.1); Calc. Creatinine Clearance 110 mL/min (70-130); Calcium 8.3 mg/dL (7.8-10.44); Carbon Dioxide 22 mmol/L (22-29); Chloride 113 mmol/L (98-107); Estimated GFR-MDRD Greater than 90; Glucose 145 mg/dL (70-105); Potassium 3.9 mmol/L (3.5-5.1); Sodium 143 mmol/L (136-145)
[2020-03-31 04:09] LABS: ALT (SGPT) 16 U/L (8-55); AST (SGOT) 15 U/L (5-34); Albumin 3.2 g/dL (3.5-5.0); Alkaline Phosphatase 89 U/L (40-110); Bilirubin, Direct 0.2 mg/dL (0.1-0.3); Bilirubin, Total 0.3 mg/dL (0.2-1.2); CRP (Inflammatory) 6.71 mg/dL (= or < 0.5); Protein, Total 5.5 g/dL (6.0-8.3)
[2020-03-31] MEDS: Piperacillin/Tazobactam 3.375 GM in Sodium Chloride 0.9% 100 ML IVPB SCH ×3 (05:03→17:15)
[2020-03-31 07:56] LABS: Actual Bicarbonate (HCO3a) 21.6 mEq/L (22-28); Base Excess (BEa) -4.9 mEq/L (-2.0 to +3.0); CO2 Tension 46.1 mmHg (35.0-45.0); Calcium, Ionized (arterial) 1.22 mmol/L (1.12-1.30); Carboxyhemoglobin (COHb) 0.3 gm% (0.0-3.0); Hemoglobin (Hb) 9.9 g/dL (12.0-16.0); O2 Tension (PaO2), arterial 65.4 mmHg (80.0-100.0); pH, Arterial 7.29 (7.35-7.45)
--- NOTE | 2020-03-31 07:59 | RAD ---
Chest one view HISTORY: Intubated. Dyspnea. Follow-up. COMPARISON: 03/30/2020. FINDINGS: Cardiac silhouette is now more obscured by worsening diffuse bilateral airspace disease. Pu lmonary vasculature is likely engorged. Bowel loops are not decreased. Tip of an endotracheal catheter now projects over the right mainstem bronchus. Nasogastric tube descends to the abdomen. No evidence of pneumothorax. IMPRESSION : Endotracheal catheter has migrated to the right mainstem bronchus and should probably be withdrawn ap proximately 2 cm for better positioning. Interval progression of widespread airspace disease. Findings were called to the patient's nurse in the ICU at 0751 hours. Code CR.
[2020-03-31 08:01] LABS: ALV-art Gradient 376.075 (0-20); Puncture Site LRA
[2020-03-31 08:33] LABS: Vancomycin, Trough 27.5 ug/mL
[2020-03-31] MEDS: Zinc Sulfate 220 MG CAP PO SCH (09:20)
[2020-03-31] MEDS: Ascorbic Acid 500 mg Chewable Tablet PO SCH (09:20)
[2020-03-31] MEDS: methylPREDNISolone Sod Succ/PF 125 MG/2 ML VIAL IVP SCH ×2 (09:21→20:00)
[2020-03-31] MEDS: Enoxaparin Sodium 80 MG/0.8 ML SYRINGE SC SCH ×2 (09:21→20:00)
[2020-03-31] MEDS: Sodium Chloride 0.9% 1,000 ML IV SCH (09:24)
[2020-03-31] MEDS: Doxycycline 100 MG CAP PO SCH ×2 (09:44→20:00)
--- NOTE | 2020-03-31 10:08 | PQF ---
CLINICAL DOCUMENTATION IMPROVEMENT CLARIFICATION FORM: ICD-10 Updated PLEASE DO AN ADDENDUM TO THE PROGRESS NOTE WITH ANY DOCUMENTATION UPDATES OR ADDITIONS AND CARRY THROUGH TO DC SUMMARY. THANK YOU. DATE: 03/31/2020 ATTN: Dr. Doe Please exercise your independent, professional judgment in responding to the clarification form. Clinical indicators are provided on the bottom of this form for your review Please check appropriate box(es): [ ] Sepsis due to: [ ] Severe sepsis with associated acute organ dysfunction: [ ] Acute Respiratory Failure [ ] Additional/Other: please specify: [x ] Localized infection without sepsis [ ] Other diagnosis [ ] Unable to determine In addition, please specify: Present on Admission (POA): [ x ] Yes [ ] No [ ] Unable to determine For continuity of documentation, please document condition throughout progress notes and discharge summary. Thank You. CLINICAL INDICATORS - SIGNS / SYMPTOMS / LABS / RESULTS AND LOCATION IN MR ER Record 03/16: VS: BP 126/74, Temp. 99.8, Resp. 29, Pulse 112, O2 sat 95 RA H&P 03/17: LAB: White count 5.4 Neutrophils % 84.9 CRP 24.66 03/18 (Nader) Pneumonia d/t COVID-19 virus Acute respiratory failure with hypoxia 03/23(Hugo) Worsening respiratory failure 2/2 COVID-19 pneumonia 03/28(Moran) VS: Temp. 101.8, pulse 131, On Bipap. High flow. PO2 [address] 20,000 Assess: Worsening respiratory failure, possibly superimposed community- acquired pneumonia on top of coronavirus. CRP 33 RISKS: H&P 03/17: tested positive for COVID one week ago 03/18 (Nader) Pneumonia d/t COVID-19 virus. Acute respiratory failure with hypoxia TREATMENT: Order 03/17-03/24: Zithromax 500mg IV q 24 hrs 03/23(Hugo) transferred to IMCU 2/2 respiratory status worsening 03/28 (Moran) transfer to ICU Order 03/28: Resp: Vent continuous ID Consult 03/28 Order 03/28 Zosyn 3.375 gm IV q 6 hr Order 03/28: Actemra 400mg IV x 1 dose Order 03/28-03/31: Vancomycin HCL 2 gm IV q 12 hr Thank you, Silvina (This form is maintained as a part of the permanent medical record) 2014 [employer]. All Rights Reserved Silvina Quezada, RN, BSN [email or web address] [facility]
--- NOTE | 2020-03-31 12:21 | PRG ---
DATE OF SERVICE: 03/31/2020 SUBJECTIVE: Charo Godfrey had to be prone ventilated yesterday. She is still prone. Her FiO2 is down to 50% now from 70% early this morning. OBJECTIVE: VITAL SIGNS: Her blood pressure is 155/64, heart rate is in the 60s. LUNGS: Unchanged. HEART: Unchanged. ABDOMEN: Unchanged. LABORATORY DATA: White count 9.5, hemoglobin 9.4, platelets 404. Electrolytes are unremarkable. Blood gas; 7.29, CO2 of 46, pO2 of 65. C-reactive protein is down to 6.7. IMPRESSION: COVID pneumonia requiring prone ventilation. Hopefully, she is clinically stabilizing, though she remains critically ill. Critical care time 30 min. Job ID: [id number] MTDD
--- NOTE | 2020-03-31 14:44 | PDOC.EVN ---
Event Note - Event Note Event Note: Continue supportive mgmt per Pulmonology. Remains on mech ventilation with slow clinical improvement. See Critical Care documentation for full details to limit multiple provider exposure to COVID.
[2020-03-31] MEDS: fentaNYL Citrate/PF 2,000 MCG in Sodium Chloride 0.9% 60 ML IV SCH (19:47)
[2020-04-01] MEDS: Piperacillin/Tazobactam 3.375 GM in Sodium Chloride 0.9% 100 ML IVPB SCH ×5 (00:22→23:53)
[2020-04-01] MEDS: Propofol 1,000 MG/100 ML VIAL IV PRN ×5 (02:14→20:49)
[2020-04-01] MEDS: Albuterol 200 PUFF (6.7GM INHALER) INH SCH ×3 (02:44→10:35)
[2020-04-01 04:02] LABS: #Lymphocytes 0.9 thou/uL (1.20-3.40); #Monocytes 0.5 thou/uL (0.11-0.59); #Neutrophils 8.7 thou/uL (1.40-6.50); %Basophils 0.1 % (0.0-1.0); %Eosinophils 0.4 % (0.0-10.0); %Lymphocytes 9.2 % (21.0-51.0); %Monocytes 5.2 % (0.0-10.0); %Neutrophils 85.2 % (42.0-75.0); Mean Corpuscular HGB CONC 33.3 g/dL (32.0-36.0); Mean Corpuscular Hemoglobin 28.6 pg (27.0-31.0); Mean Platelet Volume 7.9 fL (7.4-10.4); Platelet Count 413 thou/uL (130-400); RBC Distribution Width 15.8 % (11.5-14.5); Red Blood Cell (RBC) Count 3.49 mill/uL (4.20-5.40); White Blood Cell (WBC) Count 10.2 thou/uL (4.8-10.8)
[2020-04-01 04:11] LABS: Anion Gap 11 mmol/L (10-20); BUN (Urea Nitrogen) 26 mg/dL (9.8-20.1); Calc. Creatinine Clearance 101 mL/min (70-130); Calcium 8.1 mg/dL (7.8-10.44); Carbon Dioxide 24 mmol/L (22-29); Chloride 112 mmol/L (98-107); Estimated GFR-MDRD 84; Glucose 146 mg/dL (70-105); Sodium 143 mmol/L (136-145)
[2020-04-01] MEDS: Sodium Chloride 0.9% 1,000 ML IV SCH (05:43)
[2020-04-01 07:21] LABS: Actual Bicarbonate (HCO3a) 16.6 mEq/L (22-28); Base Excess (BEa) -8.4 mEq/L (-2.0 to +3.0); CO2 Tension 33.1 mmHg (35.0-45.0); Carboxyhemoglobin (COHb) 0.8 gm% (0.0-3.0); Hemoglobin (Hb) 12.7 g/dL (12.0-16.0); Potassium - ABG Lab 3.92 mmol/L (3.70-5.30); pH, Arterial 7.32 (7.35-7.45)
[2020-04-01 07:29] LABS: O2 Tension (PaO2), arterial 56.7 mmHg (80.0-100.0)
[2020-04-01 07:30] LABS: Puncture Site RRA
[2020-04-01 07:31] LABS: ALV-art Gradient 258.425 (0-20)
[2020-04-01] MEDS: methylPREDNISolone Sod Succ/PF 125 MG/2 ML VIAL IVP SCH ×2 (08:36→20:47)
[2020-04-01] MEDS: Zinc Sulfate 220 MG CAP PO SCH (08:37)
[2020-04-01] MEDS: Doxycycline 100 MG CAP PO SCH ×2 (08:37→20:47)
[2020-04-01] MEDS: Ascorbic Acid 500 mg Chewable Tablet PO SCH (08:37)
[2020-04-01] MEDS: Enoxaparin Sodium 80 MG/0.8 ML SYRINGE SC SCH ×2 (08:37→20:47)
[2020-04-01] MEDS ORDERED: Vancomycin HCl 1.25 GM in Sodium Chloride 0.9% 250 ML 250 ML IVPB SCH ×2 (09:00→11:00)
[2020-04-01 10:37] LABS: Vancomycin, Trough 8.2 ug/mL
--- NOTE | 2020-04-01 16:12 | PRG ---
DATE OF SERVICE: 04/01/2020 SUBJECTIVE: Charo Godfrey remains mechanically ventilated. We have not had prone again. OBJECTIVE: VITAL SIGNS: Have been stable. Heart rate in the 60s, blood pressure 120s, respiratory rates in the 20s. Her static compliance is still quite poor. Chest radiograph still shows diffuse infiltrates. Lungs, heart, and abdomen are unchanged. LABORATORY DATA: White count 10.2, hemoglobin 10.0, and platelets 413. Sodium 143, potassium 4, chloride 112, bicarb 24, BUN 26, creatinine 0.7. PH 7.32, CO2 of 33, PO2 of 56. IMPRESSION: COVID pneumonia with respiratory failure. She is currently not weanable. We will continue current clinical care. Critical care time 30 min. Job ID: [id number] MTDD
[2020-04-01] MEDS: fentaNYL Citrate/PF 2,000 MCG in Sodium Chloride 0.9% 60 ML IV SCH (16:31)
--- NOTE | 2020-04-01 17:02 | PDOC.EVN ---
Event Note - Event Note Event Note: Pt remains mech ventilated on BiLevel with FIO2 55%. Not weanable currently. To limit provider exposure to COVID-19 please see Pulmonolgy/Critical care documentation for full details.
[2020-04-01] MEDS: Vecuronium 10 MG VIAL IV PRN (22:27)
[2020-04-02] MEDS: Propofol 1,000 MG/100 ML VIAL IV PRN ×5 (01:31→23:41)
[2020-04-02] MEDS: Sodium Chloride 0.9% 1,000 ML IV SCH ×2 (03:23→23:41)
[2020-04-02 04:09] LABS: #Eosinphils 0.1 thou/uL (0.0-0.7); #Lymphocytes 0.9 thou/uL (1.20-3.40); #Monocytes 0.4 thou/uL (0.11-0.59); #Neutrophils 7.3 thou/uL (1.40-6.50); %Basophils 0.1 % (0.0-1.0); %Eosinophils 0.6 % (0.0-10.0); %Lymphocytes 10.4 % (21.0-51.0); %Monocytes 4.2 % (0.0-10.0); %Neutrophils 84.7 % (42.0-75.0); Hemoglobin 9.5 g/dL (12.0-16.0); Mean Corpuscular HGB CONC 32.1 g/dL (32.0-36.0); Mean Corpuscular Hemoglobin 27.9 pg (27.0-31.0); Mean Corpuscular Volume 86.9 fL (78.0-98.0); Mean Platelet Volume 8.2 fL (7.4-10.4); Platelet Count 355 thou/uL (130-400); RBC Distribution Width 15.9 % (11.5-14.5); Red Blood Cell (RBC) Count 3.42 mill/uL (4.20-5.40); White Blood Cell (WBC) Count 8.6 thou/uL (4.8-10.8)
[2020-04-02 04:17] LABS: Anion Gap 10 mmol/L (10-20); BUN (Urea Nitrogen) 24 mg/dL (9.8-20.1); Calc. Creatinine Clearance 116 mL/min (70-130); Calcium 7.8 mg/dL (7.8-10.44); Carbon Dioxide 25 mmol/L (22-29); Chloride 113 mmol/L (98-107); Estimated GFR-MDRD Greater than 90; Glucose 130 mg/dL (70-105); Potassium 4.2 mmol/L (3.5-5.1); Sodium 144 mmol/L (136-145)
[2020-04-02] MEDS: Piperacillin/Tazobactam 3.375 GM in Sodium Chloride 0.9% 100 ML IVPB SCH ×4 (05:45→23:41)
[2020-04-02 07:41] LABS: Actual Bicarbonate (HCO3a) 24.2 mEq/L (22-28); Base Excess (BEa) -1.3 mEq/L (-2.0 to +3.0); CO2 Tension 43.7 mmHg (35.0-45.0); Calcium, Ionized (arterial) 1.18 mmol/L (1.12-1.30); Carboxyhemoglobin (COHb) 0.4 gm% (0.0-3.0); Potassium - ABG Lab 4.07 mmol/L (3.70-5.30); pH, Arterial 7.36 (7.35-7.45)
[2020-04-02 08:14] LABS: O2 Tension (PaO2), arterial 58.9 mmHg (80.0-100.0); Puncture Site L.R.
[2020-04-02 08:15] LABS: ALV-art Gradient 278.625 (0-20)
[2020-04-02] MEDS: Enoxaparin Sodium 80 MG/0.8 ML SYRINGE SC SCH ×2 (09:26→20:41)
[2020-04-02] MEDS: Ascorbic Acid 500 mg Chewable Tablet PO SCH (09:26)
[2020-04-02] MEDS: Zinc Sulfate 220 MG CAP PO SCH (09:26)
[2020-04-02] MEDS: methylPREDNISolone Sod Succ/PF 125 MG/2 ML VIAL IVP SCH ×2 (09:26→20:39)
[2020-04-02] MEDS: Doxycycline 100 MG CAP PO SCH ×2 (09:39→20:41)
[2020-04-02] MEDS ORDERED: Pantoprazole 40 MG GRANULES PACKET PER TUBE SCH (09:45)
[2020-04-02] MEDS ORDERED: Propofol 1,000 MG/100 ML VIAL IV ONE (11:48)
[2020-04-02] MEDS: fentaNYL Citrate/PF 2,000 MCG in Sodium Chloride 0.9% 60 ML IV SCH (12:44)
[2020-04-02] MEDS: Lorazepam 2 MG/ML VIAL SLOW IVP PRN ×2 (12:45→18:45)
[2020-04-02] MEDS: Vecuronium 10 MG VIAL IV PRN ×2 (12:45→18:45)
--- NOTE | 2020-04-02 14:26 | PDOC.HOSPP ---
- Subjective Encounter Date: 04/02/20 Encounter Time: 14:15 Subjective: f/u for COVID-19 PNA on mech ventilation with Bi-level with FIO2 55%, last prone ventilation on 03/31/20. Receiving Doxycycline/Lovenox/Zosyn/Albuterol. - Objective Vital Signs & Weight: Vital Signs (12 hours) Temp Resp 04/02/20 06:00 22 H 04/02/20 04:00 98.8 F 22 H Weight Admit Weight 155 lb 6.4 oz Weight 154 lb Most Recent Monitor Data Heart Rate from ECG 69 NIBP 130/87 NIBP BP-Mean 101 Respiration from ECG 22 SpO2 96 I&O: 04/01/20 04/02/20 04/03/20 06:59 06:59 06:59 Intake Total 2658.0 2596.7 Output Total 1030 1330 Balance 1628.0 1266.7 Result Diagrams: 04/02/20 03:38 04/02/20 03:38 Additional Labs: Microbiology 03/28/20 07:40 Venous blood - Right Hand Blood Culture - Preliminary Specimen has been received and culture in progress. No Growth to date. 03/28/20 07:40 Venous blood - Right Hand Blood Culture - Preliminary NO GROWTH AT 48 HOURS 03/28/20 07:40 Venous blood - Left Hand Blood Culture - Preliminary Specimen has been received and culture in progress. No Growth to date. 03/28/20 07:40 Venous blood - Left Hand Blood Culture - Preliminary NO GROWTH AT 48 HOURS 03/16/20 23:00 Venous blood - Right Arm Blood Culture - Preliminary NO GROWTH AT 48 HOURS 03/16/20 23:00 Venous blood - Left Arm Blood Culture - Preliminary NO GROWTH AT 48 HOURS Laboratory Tests 03/16/20 03/17/20 03/17/20 23:00 01:00 01:00 WBC D-Dimer 0.40 Lactic Acid 1.9 Ferritin 95.37 C-Reactive Protein 03/17/20 03/26/20 03/26/20 01:00 10:34 10:35 WBC 16.6 H D-Dimer Lactic Acid Ferritin C-Reactive Protein 24.66 H 23.31 H 03/26/20 03/28/20 03/28/20 10:35 03:24 06:11 WBC 23.3 H D-Dimer Lactic Acid Ferritin 174.41 C-Reactive Protein 33.60 H 03/28/20 03/28/20 03/29/20 06:11 10:57 03:35 WBC D-Dimer 6.16 H Lactic Acid Ferritin 294.98 H C-Reactive Protein 32.00 H 03/29/20 03:35 WBC D-Dimer 3.39 H Lactic Acid Ferritin C-Reactive Protein EKG Reviewed by me: Yes (Tele - SR) Hospitalist ROS - Medication Medications: Active Medications Generic Name Dose Route Start Last Admin Trade Name Freq PRN Reason Stop Dose Admin Acetaminophen 1,000 mg 03/17/20 17:29 03/29/20 02:32 Tylenol PO 1,000 mg Q6H PRN Administration Fever or Pain Ascorbic Acid 1,000 mg 03/27/20 09:00 04/02/20 09:26 Vitamin C PO 1,000 mg DAILY NEHAL Administration Doxycycline Hyclate 100 mg 03/24/20 21:00 04/02/20 09:39 Vibramycin PO 04/03/20 21:01 100 mg BID NEHAL Administration Enoxaparin Sodium 70 mg 03/26/20 21:00 04/02/20 09:26 Lovenox SC 70 mg 0900,2100 NEHAL Administration Guaifenesin/Dextromethorphan 15 ml 03/24/20 23:30 03/27/20 20:59 Diabetic Tussin Dm PO 15 ml Q4H PRN Administration Cough Piperacillin Sod/Tazobactam 100 mls @ 200 mls/hr 03/28/20 12:00 04/02/20 11: 53 Sod 3.375 gm/ Sodium Chloride IVPB 100 mls Q6HR NEHAL Administration Fentanyl Citrate 2,000 mcg/ 100 mls @ 0 mls/hr 03/28/20 13:21 04/02/20 12:44 Sodium Chloride IV 04/27/20 13:21 100 mls INF NEHAL Administration Protocol Per Protocol Sodium Chloride 1,000 mls @ 50 mls/hr 03/28/20 19:00 04/02/20 03:23 Normal Saline 0.9% IV 1,000 mls .Q20H NEHAL Administration Lorazepam 2 mg 03/28/20 13:21 04/02/20 12:45 Ativan SLOW IVP 04/27/20 13:21 2 mg Q1H PRN Administration Breakthrough agitation Methylprednisolone Sodium Succinate 80 mg 03/29/20 21:00 04/02/20 09:26 Solu-Medrol IVP 80 mg Q12HR NEHAL Administration Propofol 1,000 mg 03/28/20 13:21 04/02/20 05:45 Diprivan IV 04/27/20 13:21 1,000 mg INF PRN Administration TO ACHIEVE GOAL RASS Protocol Sodium Chloride 10 ml 03/28/20 09:00 04/02/20 09:27 Flush - Normal Saline IVF 10 ml Q12HR NEHAL Administration Vecuronium [place] 10 mg 03/28/20 14:34 04/02/20 12:45 Norcuron IV 10 mg Q1H PRN Administration PARALYSIS Zinc Sulfate 220 mg 03/27/20 09:00 04/02/20 09:26 Zinc Sulfate PO 220 mg DAILY NEHAL Administration - Exam General - other findings: sedate on mech ventilation Eye: PERRL, anicteric sclera ENT: normocephalic atraumatic, no oropharyngeal lesions ENT - other findings: ETT in place Neck: supple, symmetric, no JVD, no thyromegaly, no lymphadenopathy Heart: RRR, no murmur, no gallops, no rubs, normal peripheral pulses Heart - other findings: S1, S2 Respiratory - other findings: diminished in bases bilat Gastrointestinal: soft, non-tender, non-distended, normal bowel sounds, no palpable masses Extremities: no cyanosis, no clubbing, no edema Skin: normal turgor, no lesions Psychiatric: somnolent, lethargic Psychiatric - other findings: sedate on mech ventilation Hosp A/P (1) Pneumonia due to COVID-19 virus Code(s): U07.1 - COVID-19; J12.89 - OTHER VIRAL PNEUMONIA Status: Acute Plan: Continue mech vent, Zosyn/Doxycycline/Lovenox/Albuterol (2) Acute respiratory failure with hypoxia Code(s): J96.01 - ACUTE RESPIRATORY FAILURE WITH HYPOXIA Status: Acute Plan: Receiving Bi-level mech vent @ 55% FIO2, Albuterol (3) Hyperglycemia Code(s): R73.9 - HYPERGLYCEMIA, UNSPECIFIED Status: Acute (4) Hypotension Status: Acute Plan: Resolving, serial BP monitoring (5) Sinus tachycardia Code(s): R00.0 - TACHYCARDIA, UNSPECIFIED Status: Acute Plan: Resolved - Plan plan discussed w/ family, continue antibiotics, 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
--- NOTE | 2020-04-02 15:57 | PRG ---
DATE OF SERVICE: 04/02/2020 SUBJECTIVE: Ms. Godfrey is reasonably stable. OBJECTIVE: VITAL SIGNS: Blood pressure 119/89, heart rate 74, and respiratory rate 22. LUNGS: Unchanged. HEART: Unchanged. ABDOMEN: Unchanged. LABORATORY DATA: White count 8.6, hemoglobin 9.5, and platelets 355. Electrolytes are unremarkable. PH 7.36, CO2 of 43, pO2 of 89. IMPRESSION: COVID-19 pneumonia, making slow progress. C-reactive protein was 6.7 two days ago. It is probably normal now. Hopefully, she will start turning the corner. She is not a candidate for extubation at this point. Critical care time 30 min. Job ID: [id number] MTDD
[2020-04-03] MEDS: Propofol 1,000 MG/100 ML VIAL IV PRN ×3 (04:14→20:56)
[2020-04-03] MEDS: Vecuronium 10 MG VIAL IV PRN ×2 (04:32→09:30)
[2020-04-03 05:06] LABS: Anion Gap 9 mmol/L (10-20); BUN (Urea Nitrogen) 23 mg/dL (9.8-20.1); Calc. Creatinine Clearance 133 mL/min (70-130); Calcium 7.9 mg/dL (7.8-10.44); Carbon Dioxide 26 mmol/L (22-29); Chloride 110 mmol/L (98-107); Estimated GFR-MDRD Greater than 90; Glucose 129 mg/dL (70-105); Potassium 4.3 mmol/L (3.5-5.1); Sodium 141 mmol/L (136-145)
[2020-04-03] MEDS: Piperacillin/Tazobactam 3.375 GM in Sodium Chloride 0.9% 100 ML IVPB SCH ×4 (05:36→22:52)
[2020-04-03] MEDS: fentaNYL Citrate/PF 2,000 MCG in Sodium Chloride 0.9% 60 ML IV SCH ×2 (05:36→21:47)
[2020-04-03 05:54] LABS: #Lymphocytes 0.8 thou/uL (1.20-3.40); #Monocytes 0.3 thou/uL (0.11-0.59); #Neutrophils 6.4 thou/uL (1.40-6.50); %Basophils 0.3 % (0.0-1.0); %Eosinophils 0.6 % (0.0-10.0); %Monocytes 3.7 % (0.0-10.0); %Neutrophils 84.4 % (42.0-75.0); Hemoglobin 9.9 g/dL (12.0-16.0); Mean Corpuscular Hemoglobin 26.9 pg (27.0-31.0); Mean Corpuscular Volume 86.7 fL (78.0-98.0); Platelet Count 345 thou/uL (130-400); RBC Distribution Width 16.4 % (11.5-14.5); Red Blood Cell (RBC) Count 3.66 mill/uL (4.20-5.40); White Blood Cell (WBC) Count 7.6 thou/uL (4.8-10.8)
[2020-04-03 08:21] LABS: Actual Bicarbonate (HCO3a) 22.4 mEq/L (22-28); Base Excess (BEa) -2.1 mEq/L (-2.0 to +3.0); CO2 Tension 37.6 mmHg (35.0-45.0); Calcium, Ionized (arterial) 1.19 mmol/L (1.12-1.30); Carboxyhemoglobin (COHb) 0.1 gm% (0.0-3.0); Hemoglobin (Hb) 11.7 g/dL (12.0-16.0); O2 Tension (PaO2), arterial 61.6 mmHg (80.0-100.0); Potassium - ABG Lab 4.05 mmol/L (3.70-5.30); pH, Arterial 7.39 (7.35-7.45)
[2020-04-03] MEDS: methylPREDNISolone Sod Succ/PF 125 MG/2 ML VIAL IVP SCH ×2 (09:20→20:56)
[2020-04-03] MEDS: Enoxaparin Sodium 80 MG/0.8 ML SYRINGE SC SCH ×2 (09:20→20:55)
[2020-04-03] MEDS: Ascorbic Acid 500 mg Chewable Tablet PO SCH (09:22)
[2020-04-03] MEDS: Pantoprazole 40 MG GRANULES PACKET PER TUBE SCH (09:23)
[2020-04-03] MEDS: Zinc Sulfate 220 MG CAP PO SCH (09:24)
[2020-04-03] MEDS: Doxycycline 100 MG CAP PO SCH ×2 (09:24→20:58)
[2020-04-03 10:03] LABS: Puncture Site L.R.
--- NOTE | 2020-04-03 18:25 | PDOC.EVN ---
Event Note - Event Note Event Note: Continues on mech ventilation unable to wean with COVID PNA receiving Lovenox/ Doxycycline/Solumedrol/Zosyn. To limit provider exposure to COVID please see Pulmonology documentation regarding progress today.
[2020-04-03] MEDS: Sodium Chloride 0.9% 1,000 ML IV SCH (20:57)
--- NOTE | 2020-04-03 22:43 | PRG ---
DATE OF SERVICE: 04/03/2020 SUBJECTIVE: Charo hickey seems to be slowly improving. I did discuss this with her daughter. Improvements are minute, but there are still improvements. Hemodynamics remained stable. Lungs and abdomen, unchanged. We were able to turn her FiO2 and her PEEP down a little bit today. Labs have been reviewed. There are no new significant lab findings. Her hemoglobin is stable at 9.9. Electrolytes are unchanged. Chloride is slightly better at 110, BUN is down at 23 and creatinine is down at 0.55. IMPRESSION: COVID-19 pneumonia, respiratory failure, slowly improving. We will continue with supportive care. Critical care time 30 min. Job ID: [id number] MTDD
[2020-04-04] MEDS: Propofol 1,000 MG/100 ML VIAL IV PRN ×3 (02:22→20:06)
[2020-04-04 03:58] LABS: #Eosinphils 0.1 thou/uL (0.0-0.7); #Lymphocytes 0.7 thou/uL (1.20-3.40); #Monocytes 0.2 thou/uL (0.11-0.59); %Basophils 0.2 % (0.0-1.0); %Eosinophils 0.9 % (0.0-10.0); %Lymphocytes 9.2 % (21.0-51.0); %Monocytes 2.8 % (0.0-10.0); %Neutrophils 86.9 % (42.0-75.0); Hemoglobin 10.3 g/dL (12.0-16.0); Mean Corpuscular HGB CONC 32.2 g/dL (32.0-36.0); Mean Corpuscular Hemoglobin 28.1 pg (27.0-31.0); Mean Corpuscular Volume 87.2 fL (78.0-98.0); Mean Platelet Volume 8.1 fL (7.4-10.4); Platelet Count 326 thou/uL (130-400); RBC Distribution Width 16.7 % (11.5-14.5); Red Blood Cell (RBC) Count 3.68 mill/uL (4.20-5.40); White Blood Cell (WBC) Count 8.1 thou/uL (4.8-10.8)
[2020-04-04 04:13] LABS: Anion Gap 11 mmol/L (10-20); BUN (Urea Nitrogen) 25 mg/dL (9.8-20.1); Calc. Creatinine Clearance 149 mL/min (70-130); Calcium 7.8 mg/dL (7.8-10.44); Carbon Dioxide 26 mmol/L (22-29); Chloride 107 mmol/L (98-107); Estimated GFR-MDRD Greater than 90; Glucose 123 mg/dL (70-105); Potassium 4.2 mmol/L (3.5-5.1); Sodium 140 mmol/L (136-145)
[2020-04-04] MEDS: Piperacillin/Tazobactam 3.375 GM in Sodium Chloride 0.9% 100 ML IVPB SCH (05:30)
[2020-04-04 07:29] LABS: Actual Bicarbonate (HCO3a) 24.8 mEq/L (22-28); Base Excess (BEa) -0.1 mEq/L (-2.0 to +3.0); CO2 Tension 41.7 mmHg (35.0-45.0); Calcium, Ionized (arterial) 1.17 mmol/L (1.12-1.30); Carboxyhemoglobin (COHb) 0.3 gm% (0.0-3.0); Hemoglobin (Hb) 10.1 g/dL (12.0-16.0); Potassium - ABG Lab 4.21 mmol/L (3.70-5.30); pH, Arterial 7.39 (7.35-7.45)
[2020-04-04 07:34] LABS: ALV-art Gradient 301.675 (0-20); Puncture Site LRA
[2020-04-04] MEDS: Pantoprazole 40 MG GRANULES PACKET PER TUBE SCH (09:30)
[2020-04-04] MEDS: methylPREDNISolone Sod Succ/PF 125 MG/2 ML VIAL IVP SCH ×2 (09:30→20:06)
[2020-04-04] MEDS: fentaNYL Citrate/PF 2,000 MCG in Sodium Chloride 0.9% 60 ML IV SCH ×2 (09:30→23:13)
[2020-04-04] MEDS: Enoxaparin Sodium 80 MG/0.8 ML SYRINGE SC SCH ×2 (09:30→20:05)
[2020-04-04] MEDS: Zinc Sulfate 220 MG CAP PO SCH (09:30)
[2020-04-04] MEDS: Ascorbic Acid 500 mg Chewable Tablet PO SCH (09:30)
[2020-04-04] MEDS ORDERED: cefTRIAXone\\ROCEPHIN 1 GM in Sodium Chloride 0.9% 100 ML IVPB SCH (11:00)
--- NOTE | 2020-04-04 12:17 | PRG ---
DATE OF SERVICE: 04/04/2020 OBJECTIVE: VITAL SIGNS: Heart rate 60s to 70s, blood pressure 130/85, respiratory rate 20s. We are gradually trying to decrease her pressures with her bilevel settings. LUNGS: Unchanged. HEART: Unchanged. ABDOMEN: Unchanged. LABORATORY DATA: White count 8.1, hemoglobin 10.3, platelets 326. Sodium 140, potassium 4.2, chloride 107, bicarb 26, BUN 25, creatinine 0.56. PH 7.39, pCO2 of 41, and pO2 of 74. IMPRESSION: COVID-19 pneumonia with acute respiratory distress syndrome like pulmonary mechanics. We are decreasing airway pressures, try to minimize barotrauma. We are trying to minimize FiO2 as well. We appear to be making progress, although it is slow. She will continue with steroids and anticoagulants. We will switch her to once a day Rocephin to minimize the number of times the nurses have to go into the room and to probably treat her for 3 more days with broad-spectrum antimicrobial therapy. It seems like we are having to use paralytics less often. We will hold off on daily blood gases for a while. Critical care time 35 min. Job ID: [id number] MTDD
[2020-04-04] MEDS ORDERED: Bisacodyl 10 MG SUPP PR PRN (12:35)
[2020-04-04] MEDS: Acetaminophen 500 MG TAB PO PRN (12:36)
[2020-04-04] MEDS: cefTRIAXone\\ROCEPHIN 1 GM in Sodium Chloride 0.9% 100 ML IVPB SCH (12:36)
[2020-04-04] MEDS: Lorazepam 2 MG/ML VIAL SLOW IVP PRN (14:08)
--- NOTE | 2020-04-04 16:58 | PDOC.EVN ---
Event Note - Event Note Event Note: Remains on [facility] vent for COVID-19 PNA unable to wean completely. Receiving Rocephin/Lovenox/Solumedrol. See documentation per Pulmonology service to limit provider exposure to COVID.
[2020-04-04] MEDS: Sodium Chloride 0.9% 1,000 ML IV SCH ×2 (20:05→22:08)
[2020-04-05] MEDS: Propofol 1,000 MG/100 ML VIAL IV PRN ×5 (02:40→23:54)
[2020-04-05 03:29] LABS: #Lymphocytes 0.8 thou/uL (1.20-3.40); #Monocytes 0.4 thou/uL (0.11-0.59); #Neutrophils 8.5 thou/uL (1.40-6.50); %Basophils 0.4 % (0.0-1.0); %Eosinophils 0.2 % (0.0-10.0); %Lymphocytes 8.1 % (21.0-51.0); %Monocytes 3.8 % (0.0-10.0); %Neutrophils 87.5 % (42.0-75.0); Hemoglobin 11.2 g/dL (12.0-16.0); Mean Corpuscular HGB CONC 32.5 g/dL (32.0-36.0); Mean Corpuscular Volume 86.3 fL (78.0-98.0); Mean Platelet Volume 8.4 fL (7.4-10.4); Platelet Count 352 thou/uL (130-400); RBC Distribution Width 17.2 % (11.5-14.5); White Blood Cell (WBC) Count 9.7 thou/uL (4.8-10.8)
[2020-04-05 03:40] LABS: Anion Gap 12 mmol/L (10-20); BUN (Urea Nitrogen) 21 mg/dL (9.8-20.1); Calc. Creatinine Clearance 154 mL/min (70-130); Carbon Dioxide 27 mmol/L (22-29); Chloride 105 mmol/L (98-107); Estimated GFR-MDRD Greater than 90; Glucose 119 mg/dL (70-105); Potassium 4.4 mmol/L (3.5-5.1); Sodium 140 mmol/L (136-145)
[2020-04-05] MEDS: Pantoprazole 40 MG GRANULES PACKET PER TUBE SCH (08:00)
[2020-04-05] MEDS: Zinc Sulfate 220 MG CAP PO SCH (08:00)
[2020-04-05] MEDS: methylPREDNISolone Sod Succ/PF 125 MG/2 ML VIAL IVP SCH ×2 (08:00→20:51)
[2020-04-05] MEDS: Ascorbic Acid 500 mg Chewable Tablet PO SCH (08:00)
[2020-04-05] MEDS: Enoxaparin Sodium 80 MG/0.8 ML SYRINGE SC SCH ×2 (08:00→20:50)
--- NOTE | 2020-04-05 10:20 | PRG ---
DATE OF SERVICE: 04/05/2020 TIME: 30 minutes of critical care time. SUBJECTIVE: The patient remains intubated on mechanical ventilation with COVID-19 pneumonia. She will open her eyes to command. She tries to squeeze her hand, but she is very weak. OBJECTIVE: VITAL SIGNS: Temperature 98.9, pulse 62, blood pressure 99/63, O2 saturation 99%. 24-hour intake 2234, output 2900. HEENT: Unremarkable. NECK: No JVD. LUNGS: Crackles bilaterally. CARDIAC: S1, S2. Regular. ABDOMEN: Soft and obese. EXTREMITIES: No edema. LABORATORY DATA: White blood cell count 9.7, hematocrit 34.6, and platelet count 352. Sodium 140, potassium 4.4, chloride 105, CO2 of 27, BUN 21, creatinine 0.5, glucose 119. ABG and chest x-ray were not performed today. Last chest x-ray from 03/31 showed diffuse whiteout of both lungs. ASSESSMENT: Severe COVID-19 pneumonia with acute respiratory failure, requiring mechanical ventilation. PLAN: I have tried to lower her PEEP and her FiO2 some today. We will see whether or not she will tolerate these changes. Chest x-ray and ABG will be repeated tomorrow. I have reviewed her medications. She is currently on Rocephin for antibiotic coverage. She is fully anticoagulated with enoxaparin. She is also on IV methylprednisolone. I think it will just take her some time to improve. Job ID: [id number]
--- NOTE | 2020-04-05 11:30 | PDOC.EVN ---
Event Note - Event Note Event Note: pt on vent, CCM - tried to wean her off, on IV steroid, lovenox bid labs, meds reviewd. CCM notes reviewed. - pt not seen due to limit provider exposure to COVID.
[2020-04-05] MEDS: Sodium Chloride 0.9% 1,000 ML IV SCH ×2 (12:23→17:28)
[2020-04-05] MEDS: fentaNYL Citrate/PF 2,000 MCG in Sodium Chloride 0.9% 60 ML IV SCH (12:24)
[2020-04-06] MEDS: fentaNYL Citrate/PF 2,000 MCG in Sodium Chloride 0.9% 60 ML IV SCH ×2 (01:36→14:36)
[2020-04-06 04:19] LABS: #Basophils 0.1 thou/uL (0.0-0.2); #Lymphocytes 0.7 thou/uL (1.20-3.40); #Monocytes 0.4 thou/uL (0.11-0.59); #Neutrophils 6.7 thou/uL (1.40-6.50); %Basophils 1.1 % (0.0-1.0); %Eosinophils 0.2 % (0.0-10.0); %Lymphocytes 8.9 % (21.0-51.0); %Monocytes 4.9 % (0.0-10.0); %Neutrophils 84.9 % (42.0-75.0); Hemoglobin 10.8 g/dL (12.0-16.0); Mean Corpuscular HGB CONC 32.9 g/dL (32.0-36.0); Mean Corpuscular Hemoglobin 28.2 pg (27.0-31.0); Mean Corpuscular Volume 85.8 fL (78.0-98.0); Mean Platelet Volume 9.1 fL (7.4-10.4); Platelet Count 348 thou/uL (130-400); RBC Distribution Width 17.1 % (11.5-14.5); Red Blood Cell (RBC) Count 3.82 mill/uL (4.20-5.40); White Blood Cell (WBC) Count 7.9 thou/uL (4.8-10.8)
[2020-04-06 05:05] LABS: Chloride 103 mmol/L (98-107); Potassium 4.4 mmol/L (3.5-5.1); Sodium 140 mmol/L (136-145)
[2020-04-06 05:06] LABS: Calcium 8.2 mg/dL (7.8-10.44); Glucose 121 mg/dL (70-105)
[2020-04-06 05:07] LABS: Anion Gap 9 mmol/L (10-20); Carbon Dioxide 32 mmol/L (22-29)
[2020-04-06 05:09] LABS: Calc. Creatinine Clearance 159 mL/min (70-130); Estimated GFR-MDRD Greater than 90
[2020-04-06 05:10] LABS: BUN (Urea Nitrogen) 20 mg/dL (9.8-20.1)
[2020-04-06] MEDS: Propofol 1,000 MG/100 ML VIAL IV PRN ×3 (06:26→20:19)
[2020-04-06 07:20] LABS: Actual Bicarbonate (HCO3a) 29.7 mEq/L (22-28); Base Excess (BEa) 4.8 mEq/L (-2.0 to +3.0); CO2 Tension 45.2 mmHg (35.0-45.0); Calcium, Ionized (arterial) 1.17 mmol/L (1.12-1.30); Carboxyhemoglobin (COHb) 0.3 gm% (0.0-3.0); Hemoglobin (Hb) 11.6 g/dL (12.0-16.0); O2 Tension (PaO2), arterial 71.3 mmHg (80.0-100.0); Potassium - ABG Lab 4.27 mmol/L (3.70-5.30); pH, Arterial 7.44 (7.35-7.45)
[2020-04-06 07:23] LABS: Puncture Site RRA
[2020-04-06] MEDS: methylPREDNISolone Sod Succ/PF 125 MG/2 ML VIAL IVP SCH ×2 (08:32→20:20)
[2020-04-06] MEDS: Enoxaparin Sodium 80 MG/0.8 ML SYRINGE SC SCH ×2 (08:33→20:20)
[2020-04-06] MEDS: Pantoprazole 40 MG GRANULES PACKET PER TUBE SCH (08:33)
[2020-04-06] MEDS: Zinc Sulfate 220 MG CAP PO SCH (08:33)
[2020-04-06] MEDS: Ascorbic Acid 500 mg Chewable Tablet PO SCH (08:33)
[2020-04-06] MEDS: Sodium Chloride 0.9% 1,000 ML IV SCH (08:34)
--- NOTE | 2020-04-06 09:01 | RAD ---
RADIOGRAPH CHEST 1 VIEW: DATE: 04/06/2020 TIME: 5:19 AM HISTORY: 49-year-old female with pneumonia and respiratory failure. COMPARISON: 03/31/2020 FINDINGS: Endotracheal tube distal tip is now 2 cm superior to the josue. The previously very severe dense opa cification of all bilateral lung harrison, has become less dense, but it is still extensive and still severe. No cardiomegaly. Esophagogastric tube remains curled in fundus of stomach. No pneumothorax. IMPRESSION: 1. The previously very severe bilateral pulmonary consolidations have improved, having decreased in a ttenuation, but are still extensive and still severe. 2. Endotracheal tube distal tip has been retracted back from the origin of the right mainstem bronchu s to the lower trachea.
--- NOTE | 2020-04-06 10:00 | PRG ---
DATE OF SERVICE: 04/06/2020 SUBJECTIVE: Ms. Godfrey remains intubated on mechanical ventilation. There has been no acute changes overnight. She did tolerate me turning down her pressures yesterday. OBJECTIVE: VITAL SIGNS: On exam, temperature 98.7, pulse 70, blood pressure 131/81, and O2 saturation 97%. Total intake 2912, output 3575. HEENT: Unremarkable. NECK: No JVD. LUNGS: Crackles. CARDIAC: S1 and S2. Regular. ABDOMEN: Soft. EXTREMITIES: No edema. LABORATORY DATA: PH of 7.44, pCO2 of 45, pO2 of 71 on bilevel 37/10 with FiO2 of 60%. White blood cell count 7.9, hematocrit 32.8, and platelet count 348. Sodium 140, potassium 4.4, chloride 103, CO2 of 32, BUN 20, creatinine 0.5, and glucose 121. IMAGING DATA: Chest x-ray shows no significant change. ASSESSMENT: 1. COVID-19 pneumonia. 2. Acute respiratory failure, requiring mechanical ventilation. Of note, the patient is extremely stiff in her lungs. PLAN: I have turned down her low PEEP pressure in order to give her larger tidal volume. I have decreased her FiO2 some. We will go ahead and retest her and see if she has cleared the COVID and able to take her out of isolation. Job ID: [id number]
[2020-04-06] MEDS: cefTRIAXone\\ROCEPHIN 1 GM in Sodium Chloride 0.9% 100 ML IVPB SCH (11:41)
--- NOTE | 2020-04-06 15:01 | PDOC.EVN ---
Event Note - Event Note Event Note: pt on vent, CCM - tried to wean her off, on IV steroid, lovenox bid cent changes on 12th - low PEEP and high tidal volume labs, meds reviewd. [facility] notes reviewed. - pt not seen due to limit provider exposure to COVID.
[2020-04-07] MEDS: Propofol 1,000 MG/100 ML VIAL IV PRN ×3 (03:07→22:56)
[2020-04-07] MEDS: Sodium Chloride 0.9% 1,000 ML IV SCH (03:07)
[2020-04-07 03:23] LABS: #Basophils 0.1 thou/uL (0.0-0.2); #Lymphocytes 0.8 thou/uL (1.20-3.40); #Monocytes 0.3 thou/uL (0.11-0.59); #Neutrophils 6.5 thou/uL (1.40-6.50); %Basophils 0.9 % (0.0-1.0); %Eosinophils 0.3 % (0.0-10.0); %Lymphocytes 10.9 % (21.0-51.0); %Monocytes 4.3 % (0.0-10.0); %Neutrophils 83.6 % (42.0-75.0); Hemoglobin 10.2 g/dL (12.0-16.0); Mean Corpuscular HGB CONC 32.8 g/dL (32.0-36.0); Mean Corpuscular Hemoglobin 27.9 pg (27.0-31.0); Mean Corpuscular Volume 85.2 fL (78.0-98.0); Mean Platelet Volume 8.2 fL (7.4-10.4); Platelet Count 322 thou/uL (130-400); RBC Distribution Width 16.9 % (11.5-14.5); Red Blood Cell (RBC) Count 3.66 mill/uL (4.20-5.40); White Blood Cell (WBC) Count 7.8 thou/uL (4.8-10.8)
[2020-04-07 03:45] LABS: Anion Gap 9 mmol/L (10-20); BUN (Urea Nitrogen) 19 mg/dL (9.8-20.1); Calc. Creatinine Clearance 168 mL/min (70-130); Calcium 7.8 mg/dL (7.8-10.44); Carbon Dioxide 30 mmol/L (22-29); Chloride 103 mmol/L (98-107); Estimated GFR-MDRD Greater than 90; Glucose 118 mg/dL (70-105); Sodium 138 mmol/L (136-145)
[2020-04-07] MEDS: fentaNYL Citrate/PF 2,000 MCG in Sodium Chloride 0.9% 60 ML IV SCH ×2 (03:59→16:30)
[2020-04-07 07:35] LABS: Actual Bicarbonate (HCO3a) 28.3 mEq/L (22-28); Base Excess (BEa) 3.9 mEq/L (-2.0 to +3.0); CO2 Tension 42.2 mmHg (35.0-45.0); Calcium, Ionized (arterial) 1.17 mmol/L (1.12-1.30); Carboxyhemoglobin (COHb) 0.4 gm% (0.0-3.0); Hemoglobin (Hb) 11.7 g/dL (12.0-16.0); Potassium - ABG Lab 3.92 mmol/L (3.70-5.30); pH, Arterial 7.45 (7.35-7.45)
[2020-04-07] MEDS: Zinc Sulfate 220 MG CAP PO SCH (07:51)
[2020-04-07] MEDS: Ascorbic Acid 500 mg Chewable Tablet PO SCH (07:51)
[2020-04-07] MEDS: Enoxaparin Sodium 80 MG/0.8 ML SYRINGE SC SCH (07:51)
[2020-04-07] MEDS: Pantoprazole 40 MG GRANULES PACKET PER TUBE SCH (07:51)
[2020-04-07] MEDS: methylPREDNISolone Sod Succ/PF 125 MG/2 ML VIAL IVP SCH (07:52)
--- NOTE | 2020-04-07 09:14 | RAD ---
PORTABLE CHEST 1 VIEW: DATE: 04/07/2020. TIME: 3:47 AM. HISTORY: Pneumonia, respiratory failure. COMPARISON: Previous day. FINDINGS/IMPRESSION: Endotracheal and nasogastric tubes remain in place. There is interval improvement without resolution of the bilateral airspace disease. No pneumothoraces or large effusions are seen. POS: [facility]
[2020-04-07 09:45] LABS: O2 Tension (PaO2), arterial 58.8 mmHg (80.0-100.0); Puncture Site L.R.
--- NOTE | 2020-04-07 10:36 | PRG ---
DATE OF SERVICE: 04/07/2020 SUBJECTIVE: Charo Godfrey is a 49-year-old female, remains intubated in the vent. She is day #21. X-ray shows bilateral infiltrates, though somewhat better. Oxygenation improved. OBJECTIVE: VITAL SIGNS: Pulse 92, blood pressure 140/80, respiratory rate 22. She is still on Diprivan. I's and O's are even. CHEST: Decreased breath sounds. No wheezing. CARDIAC: Normal S1, S2. No gallops. ABDOMEN: No masses. IMPRESSION: 1. Coronavirus positive, pneumonia. 2. Respiratory failure. 3. Encephalopathy. We are trying to minimize sedation. Continue PT, nutrition has been adjusted. She has been resorbed again. Once she is negative we can discontinue isolation. She may require trach and PEG if we cannot get her off the vent. TIME SPENT: One-half hour of critical care time. Job ID: [id number]
[2020-04-07 11:55] LABS: SARS-CoV-2 MS2 Positive; SARS-CoV-2 N Gene Positive; SARS-CoV-2 S Gene Positive; SARS-CoV-2 by NAA DETECTED (NotDetected); SARS-CoV-2 orf1ab Positive
[2020-04-07] MEDS: cefTRIAXone\\ROCEPHIN 1 GM in Sodium Chloride 0.9% 100 ML IVPB SCH (12:47)
--- NOTE | 2020-04-07 15:22 | PDOC.EVN ---
Event Note - Event Note Event Note: pt still on vent, CCM - tried to wean her off, on IV steroid, lovenox bid cent changes on 12th - low PEEP and high tidal volume labs, meds reviewd. CCM notes reviewed. if not weanable from Vent, plan for trach/peg. - pt not seen due to limit provider exposure to COVID.
[2020-04-07] MEDS: Enoxaparin Sodium 40 MG/0.4 ML SYRINGE SC SCH (21:20)
[2020-04-07] MEDS: methylPREDNISolone Sod Succ 40 MG VIAL IVP SCH (21:20)
[2020-04-08] MEDS: Sodium Chloride 0.9% 1,000 ML IV SCH ×2 (00:30→20:25)
[2020-04-08 03:14] LABS: #Lymphocytes 0.9 thou/uL (1.20-3.40); #Monocytes 0.4 thou/uL (0.11-0.59); #Neutrophils 7.6 thou/uL (1.40-6.50); %Basophils 0.2 % (0.0-1.0); %Eosinophils 0.4 % (0.0-10.0); %Lymphocytes 9.8 % (21.0-51.0); %Neutrophils 84.7 % (42.0-75.0); Hemoglobin 10.4 g/dL (12.0-16.0); Mean Corpuscular HGB CONC 32.6 g/dL (32.0-36.0); Mean Corpuscular Hemoglobin 28.1 pg (27.0-31.0); Mean Corpuscular Volume 86.2 fL (78.0-98.0); Mean Platelet Volume 7.9 fL (7.4-10.4); Platelet Count 313 thou/uL (130-400); RBC Distribution Width 16.6 % (11.5-14.5); Red Blood Cell (RBC) Count 3.71 mill/uL (4.20-5.40); White Blood Cell (WBC) Count 8.9 thou/uL (4.8-10.8)
[2020-04-08 03:39] LABS: Anion Gap 9 mmol/L (10-20); BUN (Urea Nitrogen) 18 mg/dL (9.8-20.1); Calc. Creatinine Clearance 164 mL/min (70-130); Carbon Dioxide 29 mmol/L (22-29); Chloride 104 mmol/L (98-107); Estimated GFR-MDRD Greater than 90; Glucose 119 mg/dL (70-105); Potassium 3.7 mmol/L (3.5-5.1); Sodium 138 mmol/L (136-145)
[2020-04-08] MEDS: Propofol 1,000 MG/100 ML VIAL IV PRN ×2 (04:59→14:49)
[2020-04-08 07:21] LABS: Actual Bicarbonate (HCO3a) 25.9 mEq/L (22-28); Base Excess (BEa) 1.9 mEq/L (-2.0 to +3.0); CO2 Tension 38.3 mmHg (35.0-45.0); Calcium, Ionized (arterial) 1.16 mmol/L (1.12-1.30); Carboxyhemoglobin (COHb) 0.1 gm% (0.0-3.0); Hemoglobin (Hb) 11.5 g/dL (12.0-16.0); O2 Tension (PaO2), arterial 72.8 mmHg (80.0-100.0); Potassium - ABG Lab 3.53 mmol/L (3.70-5.30); Puncture Site L.R.; pH, Arterial 7.45 (7.35-7.45)
[2020-04-08 07:22] LABS: ALV-art Gradient 200.175 (0-20)
[2020-04-08] MEDS: fentaNYL Citrate/PF 2,000 MCG in Sodium Chloride 0.9% 60 ML IV SCH (07:41)
--- NOTE | 2020-04-08 08:46 | RAD ---
RADIOGRAPH CHEST 1 VIEW: Date: 04/08/2020 Time: 0448 hours HISTORY: 49-year-old female with pneumonia. COMPARISON: 04/07/2020 0347 hours. FINDINGS: Endotracheal tube and esophagogastric tube remain. Diffuse bilateral interstitial-alveolar infiltrate s remain. No pneumothorax. No interval change. IMPRESSION: 1. Diffuse infiltrates. 2. No interval change. CORIN [] POS: FRANCISCO
--- NOTE | 2020-04-08 08:49 | PRG ---
DATE OF SERVICE: 04/08/2020 SUBJECTIVE: Charo Godfrey, a 49-year-old female, remains intubated in the vent. She is day #22. OBJECTIVE: VITAL SIGNS: Respiratory rate 22, FiO2 of 45%, bilevel, PEEP of 8, blood pressure 115/73, afebrile. I's and O's positive. CHEST: No wheezing, no crackles. CARDIAC: Normal S1, S2. No gallops. ABDOMEN: No masses. LABORATORY DATA: White count 8000, H and H 10 and 32, platelet count is normal. PO2 is 72, pCO2 is 30, pH 7.45, rate of 22, 45%, pressure support of 15. ASSESSMENT: 1. Respiratory failure, acute respiratory distress syndrome, coronavirus positive pneumonia. 2. Encephalopathy. It is unclear whether she is weanable at this stage. She is probably going to require trach and PEG. She was re-swabbed again and serology remains positive. One-half hour of critical time. Job ID: [id number]
[2020-04-08] MEDS: Enoxaparin Sodium 40 MG/0.4 ML SYRINGE SC SCH ×2 (09:59→20:25)
[2020-04-08] MEDS: Ascorbic Acid 500 mg Chewable Tablet PO SCH (09:59)
[2020-04-08] MEDS: Famotidine/PF 20 mg/2ml Vial SLOW IVP SCH ×2 (09:59→20:25)
[2020-04-08] MEDS: Zinc Sulfate 220 MG CAP PO SCH (10:00)
[2020-04-08] MEDS: methylPREDNISolone Sod Succ 40 MG VIAL IVP SCH ×2 (10:00→20:26)
--- NOTE | 2020-04-08 15:18 | PDOC.EVN ---
Event Note - Event Note Event Note: pt still on vent, CCM - tried to wean her off, on IV steroid, lovenox bid cent changes on - low PEEP and high tidal volume labs, meds reviewd. CCM notes reviewed. if not weanable from Vent, plan for trach/peg. - pt not seen due to limit provider exposure to COVID. -repeat COVID +ve -palliative contacted -plan for poss. trach and peg as prolonged weaning.
[2020-04-09] MEDS: Propofol 1,000 MG/100 ML VIAL IV PRN ×2 (00:38→18:45)
[2020-04-09] MEDS: fentaNYL Citrate/PF 2,000 MCG in Sodium Chloride 0.9% 60 ML IV SCH ×2 (01:07→18:45)
[2020-04-09 03:28] LABS: #Basophils 0.1 thou/uL (0.0-0.2); #Eosinphils 0.3 thou/uL (0.0-0.7); #Lymphocytes 1.7 thou/uL (1.20-3.40); #Monocytes 0.7 thou/uL (0.11-0.59); %Basophils 0.8 % (0.0-1.0); %Lymphocytes 19.8 % (21.0-51.0); %Monocytes 7.9 % (0.0-10.0); %Neutrophils 67.6 % (42.0-75.0); Hemoglobin 9.7 g/dL (12.0-16.0); Mean Corpuscular HGB CONC 31.6 g/dL (32.0-36.0); Mean Corpuscular Hemoglobin 27.4 pg (27.0-31.0); Mean Corpuscular Volume 86.7 fL (78.0-98.0); Mean Platelet Volume 8.2 fL (7.4-10.4); Platelet Count 321 thou/uL (130-400); RBC Distribution Width 16.9 % (11.5-14.5); Red Blood Cell (RBC) Count 3.54 mill/uL (4.20-5.40); White Blood Cell (WBC) Count 8.8 thou/uL (4.8-10.8)
[2020-04-09 03:48] LABS: Anion Gap 9 mmol/L (10-20); BUN (Urea Nitrogen) 18 mg/dL (9.8-20.1); Calc. Creatinine Clearance 148 mL/min (70-130); Calcium 7.7 mg/dL (7.8-10.44); Carbon Dioxide 30 mmol/L (22-29); Chloride 105 mmol/L (98-107); Estimated GFR-MDRD Greater than 90; Glucose 99 mg/dL (70-105); Potassium 3.5 mmol/L (3.5-5.1); Sodium 140 mmol/L (136-145)
[2020-04-09 08:12] LABS: Actual Bicarbonate (HCO3a) 28.4 mEq/L (22-28); Base Excess (BEa) 3.2 mEq/L (-2.0 to +3.0); CO2 Tension 46.3 mmHg (35.0-45.0); Calcium, Ionized (arterial) 1.15 mmol/L (1.12-1.30); Carboxyhemoglobin (COHb) 0.4 gm% (0.0-3.0); Hemoglobin (Hb) 11.1 g/dL (12.0-16.0); Potassium - ABG Lab 3.81 mmol/L (3.70-5.30); pH, Arterial 7.41 (7.35-7.45)
[2020-04-09 08:43] LABS: O2 Tension (PaO2), arterial 52.3 mmHg (80.0-100.0); Puncture Site RRA
[2020-04-09 08:44] LABS: ALV-art Gradient 175.025 (0-20)
[2020-04-09] MEDS: Ascorbic Acid 500 mg Chewable Tablet PO SCH (09:11)
[2020-04-09] MEDS: Enoxaparin Sodium 40 MG/0.4 ML SYRINGE SC SCH ×2 (09:11→20:44)
[2020-04-09] MEDS: Zinc Sulfate 220 MG CAP PO SCH (09:12)
[2020-04-09] MEDS: Famotidine/PF 20 mg/2ml Vial SLOW IVP SCH ×2 (09:12→20:44)
[2020-04-09] MEDS: methylPREDNISolone Sod Succ 40 MG VIAL IVP SCH ×2 (09:27→20:44)
--- NOTE | 2020-04-09 09:37 | PRG ---
DATE OF SERVICE: SUBJECTIVE: Remains intubated in the vent, on bilevel at low PEEP of and 40% FiO2, unable to get her off the vent. X-ray showed bilateral infiltrates, though she is slightly more responsive. OBJECTIVE: VITAL SIGNS: Pulse 90, blood pressure 127/73, and respiratory rate 16. She is now over 22 days on the vent. CHEST: Without crackles or rhonchi. CARDIAC: Normal S1 and S2. No gallops. ABDOMEN: Soft. LABORATORY DATA: PO2 was 52, pCO2 of 46%, pH 7.41, 40%, low PEEP of . White count 8000. Coronavirus test was positive yesterday. IMPRESSION: Acute respiratory distress syndrome, pneumonia, and respiratory failure. PLAN: She is clearly not weanable at this stage. Trach and PEG have been ordered. I spoke to the patient's daughter at length yesterday to consult Surgery for possible trach and PEG. One-half hour of critical time. Job ID: [id number]
--- NOTE | 2020-04-09 09:38 | RAD ---
PORTABLE CHEST 1 VIEW: DATE: 04/09/2020. TIME: 3:38 AM. HISTORY: Pneumonia, respiratory failure. COMPARISON: Previous day. FINDINGS/IMPRESSION: Endotracheal and nasogastric tubes remain in place. The heart size is stable. The lungs are well ex panded with diffuse interstitial and alveolar opacities which demonstrate mild interval worsening. N o pneumothoraces or large effusions are seen. POS: [facility]
--- NOTE | 2020-04-09 16:07 | PDOC.EVN ---
Event Note - Event Note Event Note: pt still on vent, CCM - tried to wean her off, on IV steroid, lovenox bid cent changes on 12th - low PEEP and high tidal volume labs, meds reviewd. CCM notes reviewed. if not weanable from Vent, plan for trach/peg. - pt not seen due to limit provider exposure to COVID. 14th -repeat COVID +ve -palliative contacted -plan for poss. trach and peg as prolonged weaning. 15 trach/peg planned and sux on board for the same. am labs for periodic monitoring.
[2020-04-09] MEDS: Sodium Chloride 0.9% 1,000 ML IV SCH (16:09)
[2020-04-09] MEDS ORDERED: Sterile Water 10 ML VIAL FS PRN (22:20)
[2020-04-10] MEDS: Propofol 1,000 MG/100 ML VIAL IV PRN ×2 (02:39→20:39)
[2020-04-10 03:28] LABS: #Lymphocytes 0.9 thou/uL (1.20-3.40); #Monocytes 0.4 thou/uL (0.11-0.59); #Neutrophils 12.8 thou/uL (1.40-6.50); %Basophils 0.2 % (0.0-1.0); %Eosinophils 0.2 % (0.0-10.0); %Lymphocytes 6.2 % (21.0-51.0); %Monocytes 2.6 % (0.0-10.0); %Neutrophils 90.8 % (42.0-75.0); Hemoglobin 10.6 g/dL (12.0-16.0); Mean Corpuscular HGB CONC 31.4 g/dL (32.0-36.0); Mean Corpuscular Hemoglobin 27.4 pg (27.0-31.0); Mean Corpuscular Volume 87.1 fL (78.0-98.0); Mean Platelet Volume 8.2 fL (7.4-10.4); Platelet Count 368 thou/uL (130-400); RBC Distribution Width 16.8 % (11.5-14.5); Red Blood Cell (RBC) Count 3.87 mill/uL (4.20-5.40); White Blood Cell (WBC) Count 14.1 thou/uL (4.8-10.8)
[2020-04-10 03:48] LABS: Anion Gap 8 mmol/L (10-20); BUN (Urea Nitrogen) 14 mg/dL (9.8-20.1); Calc. Creatinine Clearance 0 mL/min (70-130); Calcium 8.1 mg/dL (7.8-10.44); Carbon Dioxide 32 mmol/L (22-29); Chloride 103 mmol/L (98-107); Estimated GFR-MDRD Greater than 90; Glucose 122 mg/dL (70-105); Potassium 4.1 mmol/L (3.5-5.1); Sodium 139 mmol/L (136-145)
[2020-04-10] MEDS ORDERED: Lidocaine 1% w/Epinephrine 1:100K 20 ML VIAL IJ SCH (07:00)
[2020-04-10] MEDS ORDERED: Vecuronium 10 MG VIAL IVP PRN (07:00)
[2020-04-10 07:08] LABS: Actual Bicarbonate (HCO3a) 28.8 mEq/L (22-28); Base Excess (BEa) 4.1 mEq/L (-2.0 to +3.0); CO2 Tension 43.9 mmHg (35.0-45.0); Calcium, Ionized (arterial) 1.21 mmol/L (1.12-1.30); Carboxyhemoglobin (COHb) 0.7 gm% (0.0-3.0); Hemoglobin (Hb) 12.1 g/dL (12.0-16.0); O2 Tension (PaO2), arterial 72.6 mmHg (80.0-100.0); Potassium - ABG Lab 4.11 mmol/L (3.70-5.30); pH, Arterial 7.44 (7.35-7.45)
[2020-04-10 07:20] LABS: Puncture Site RRAD
[2020-04-10 07:21] LABS: ALV-art Gradient 157.725 (0-20)
--- NOTE | 2020-04-10 07:53 | RAD ---
XR Chest 1 View Portable History: Pneumonia Comparison: Radiograph prior day Findings: Endotracheal tube tip sits above the josue 1.3 cm. Scattered airspace opacities are simila r. Small effusions. Heart size mildly enlarged. Enteric tube tip at the gastric fundus. No acute osseous abnormality. Impression: Similar to yesterday although slightly improved from March 26 lung aeration.
--- NOTE | 2020-04-10 08:26 | PRG ---
DATE OF SERVICE: 04/10/2020 SUBJECTIVE: This morning, she is scheduled for trach and PEG. X-ray shows improvement in bilateral infiltrates. OBJECTIVE: VITAL SIGNS: Pulse is 73, 40% FiO2, she is still on bilevel, we are unable to get her down asynchronous though her pulse 83, blood pressure 112/71, saturations 99%, respiratory rate 17. I's and O's are good. CHEST: Minimal crackles. No wheezing. CARDIAC: Normal S1 and S2. No gallops. ABDOMEN: No masses. LABORATORY DATA: PO2 of 72, pCO2 of 40, pH 7.44. Rate of 14. White count , H and H of 10 and 33, platelet count 368. Lytes are normal. ASSESSMENT: Coronavirus positive pneumonia, acute respiratory distress syndrome, respiratory failure. PLAN: Trach and PEG. Start weaning thereafter. One-half hour of critical care time. Job ID: [id number]
[2020-04-10] MEDS: Enoxaparin Sodium 40 MG/0.4 ML SYRINGE SC SCH ×2 (09:24→20:39)
[2020-04-10] MEDS: Zinc Sulfate 220 MG CAP PO SCH (09:24)
[2020-04-10] MEDS: Famotidine/PF 20 mg/2ml Vial SLOW IVP SCH ×2 (09:24→20:39)
[2020-04-10] MEDS: methylPREDNISolone Sod Succ 40 MG VIAL IVP SCH ×2 (09:24→20:55)
[2020-04-10] MEDS: Ascorbic Acid 500 mg Chewable Tablet PO SCH (09:24)
[2020-04-10] MEDS ORDERED: CEFAZOLIN 2 GM in Premix Bag 1 BAG IVPB SCH (10:30)
[2020-04-10] MEDS: fentaNYL Citrate/PF 2,000 MCG in Sodium Chloride 0.9% 60 ML IV SCH (10:45)
[2020-04-10] MEDS: Sodium Chloride 0.9% 1,000 ML IV SCH (12:00)
--- NOTE | 2020-04-10 13:34 | PDOC.EVN ---
Event Note - Event Note Event Note: - pt not seen due to limit provider exposure to COVID. labs, meds reviewd. CCM notes reviewed. -repeat COVID +ve -palliative on board trach and peg / Mild Leukocytosis --on IV steroid.
--- NOTE | 2020-04-10 18:10 | OP ---
DATE OF PROCEDURE: 04/10/2020 PREOPERATIVE DIAGNOSIS: Acute respiratory failure secondary to COVID-19 pneumonia. POSTOPERATIVE DIAGNOSIS: Acute respiratory failure secondary to COVID-19 pneumonia. PROCEDURES PERFORMED: 1. Percutaneous tracheostomy tube placement. 2. Percutaneous endoscopic gastrostomy tube placement. ANESTHESIA: Deep sedation and local. INDICATIONS FOR PROCEDURE: A 49-year-old woman, admitted with COVID-19 pneumonia. The patient has developed complicating acute respiratory failure. She has been on mechanical ventilator support now for almost 3 weeks. Her pulmonary function seems to be improving. I was asked to place the percutaneous tracheostomy tube to facilitate ventilator wean or perhaps in anticipation for prolonged mechanical ventilator support. The gastrostomy tube was also warranted for prolonged enteral nutritional supplementation. DESCRIPTION OF PROCEDURE: Informed consent was obtained from the patient's family. The patient was placed in supine position. She is on full mechanical ventilator support. FiO2 was set at 100%. She is on fentanyl and propofol by continuous infusion. Once adequate sedation was achieved, the patient was given vecuronium 10 mg intravenously. A fiberoptic bronchoscope was introduced through the previous endotracheal tube to visualize the tip of the tube, which was pulled to 5 cm above the josue. The anterior neck was transilluminated in the area chosen for the tracheostomy tube. The anterior neck was then sterilely prepped and draped in usual fashion. The skin 2 fingerbreadths above the suprasternal notch was anesthetized with 1% lidocaine with epinephrine. A 1 cm vertical incision was made here using a 15 scalpel. Introducer needle was inserted through this incision, advanced through the anterior tracheal wall, visualized by bronchoscopy. Guidewire was advanced through the needle and placed in the distal tracheal lumen without resistance. Needle was withdrawn over the guidewire. The anterior tracheal wall was sterilely dilated over the guidewire. Finally, a size 8 tracheostomy tube with a dilator and introducer catheter were advanced as a unit over the guidewire and placed in the distal tracheal lumen without resistance. The guidewire, introducer catheter, and dilator were removed as a unit, leaving the tracheostomy tube in place. The inner cannula was inserted. Cuff was inflated, and the patient was connected to mechanical ventilator support via the newly placed tracheostomy tube, noting good return of tidal volume. The tracheostomy tube was secured to anterior neck using 0 silk suture at two points. Trach tie and dressings were applied. The previous endotracheal tube was withdrawn with the bronchoscope as a unit, visualizing the tracheostomy site from above with good hemostasis. Once the endotracheal tube was removed, the bronchoscope was reintroduced through the newly placed tracheostomy tube and advanced to visualize the josue. No bleeding present. The scope was withdrawn, visualizing intact tracheobronchial mucosa and no bleeding at the site of the tracheostomy from below. Attention was then directed to the abdomen. We proceeded with gastrostomy tube placement. At this juncture, a mouth guard was put in place. An endoscope was introduced orally and advanced to intubate the esophagus. With gentle insufflation, the scope was directed into the gastric lumen, which itself was insufflated. The scope was passed through a patent pylorus, visualizing proximal duodenum and no peptic ulcerative disease present. The scope was withdrawn, transilluminating the left upper quadrant of the abdomen and the area chosen for placement of the gastrostomy tube. The abdomen was sterilely prepped and draped in usual fashion. Skin was anesthetized with 1% lidocaine. A stab incision was made using an 11 scalpel. Introducer needle was inserted through this incision, advanced into the gastric lumen, visualized by endoscopy. A guidewire was passed through the needle and advanced into the gastric lumen and the captured with an endosnare, which was introduced via the endoscope. The guidewire and endoscope were pulled out of the mouth as a unit. The guidewire was connected to a 20-[place] gastrostomy tube. The distal end of the guidewire was pulled out from the stab incision along with the end of the gastrostomy tube, allowing the mushroom end of the gastrostomy tube to abut the gastric mucosa. The endoscope was reintroduced, visualizing the proper sitting of the gastrostomy tube with the mushroom end abutting the gastric mucosa. The gastrostomy tube was fashioned to length and secured to anterior abdominal wall at 3 cm using a bolster. Sterile dressings were applied. The stomach was desufflated. The endoscope was withdrawn, visualizing intact esophageal mucosa. The patient tolerated the operation without any apparent complication and remains hemodynamically stable following completion of the procedure. Job ID: [id number]
[2020-04-11] MEDS: Propofol 1,000 MG/100 ML VIAL IV PRN ×2 (03:24→08:43)
[2020-04-11 04:34] LABS: #Basophils 0.1 thou/uL (0.0-0.2); #Eosinphils 0.5 thou/uL (0.0-0.7); #Lymphocytes 1.7 thou/uL (1.20-3.40); #Monocytes 0.6 thou/uL (0.11-0.59); #Neutrophils 7.8 thou/uL (1.40-6.50); %Basophils 0.9 % (0.0-1.0); %Eosinophils 4.9 % (0.0-10.0); %Lymphocytes 15.8 % (21.0-51.0); %Monocytes 5.4 % (0.0-10.0); Hemoglobin 10.1 g/dL (12.0-16.0); Mean Corpuscular HGB CONC 31.3 g/dL (32.0-36.0); Mean Corpuscular Hemoglobin 27.4 pg (27.0-31.0); Mean Corpuscular Volume 87.4 fL (78.0-98.0); Mean Platelet Volume 8.1 fL (7.4-10.4); Platelet Count 343 thou/uL (130-400); RBC Distribution Width 16.8 % (11.5-14.5); White Blood Cell (WBC) Count 10.7 thou/uL (4.8-10.8)
[2020-04-11 04:55] LABS: Anion Gap 10 mmol/L (10-20); BUN (Urea Nitrogen) 11 mg/dL (9.8-20.1); Calc. Creatinine Clearance 139 mL/min (70-130); Calcium 8.2 mg/dL (7.8-10.44); Carbon Dioxide 30 mmol/L (22-29); Chloride 103 mmol/L (98-107); Estimated GFR-MDRD Greater than 90; Glucose 86 mg/dL (70-105); Potassium 3.7 mmol/L (3.5-5.1); Sodium 139 mmol/L (136-145)
[2020-04-11] MEDS: fentaNYL Citrate/PF 2,000 MCG in Sodium Chloride 0.9% 60 ML IV SCH (06:03)
[2020-04-11 07:17] LABS: Actual Bicarbonate (HCO3a) 29.7 mEq/L (22-28); Base Excess (BEa) 4.7 mEq/L (-2.0 to +3.0); CO2 Tension 45.5 mmHg (35.0-45.0); Calcium, Ionized (arterial) 1.17 mmol/L (1.12-1.30); Carboxyhemoglobin (COHb) 0.5 gm% (0.0-3.0); Hemoglobin (Hb) 10.9 g/dL (12.0-16.0); Potassium - ABG Lab 3.58 mmol/L (3.70-5.30); pH, Arterial 7.43 (7.35-7.45)
[2020-04-11 07:27] LABS: ALV-art Gradient 132.325 (0-20); Puncture Site RRA
--- NOTE | 2020-04-11 08:00 | RAD ---
XR Chest 1 View Portable History: Pneumonia Comparison: Radiograph prior day Findings: New tracheostomy in good position. Multifocal airspace opacities are similar. Small effusio ns. Heart size is similar. No acute osseous abnormality. Impression: Similar lung aeration with new tracheostomy tube in good position.
[2020-04-11] MEDS: Enoxaparin Sodium 40 MG/0.4 ML SYRINGE SC SCH ×2 (08:37→20:47)
[2020-04-11] MEDS: Zinc Sulfate 220 MG CAP PO SCH (08:38)
[2020-04-11] MEDS: Ascorbic Acid 500 mg Chewable Tablet PO SCH (08:38)
[2020-04-11] MEDS: Famotidine/PF 20 mg/2ml Vial SLOW IVP SCH ×2 (08:38→20:47)
[2020-04-11] MEDS: methylPREDNISolone Sod Succ 40 MG VIAL IVP SCH (08:38)
[2020-04-11] MEDS: Sodium Chloride 0.9% 1,000 ML IV SCH (09:19)
--- NOTE | 2020-04-11 09:59 | PRG ---
DATE OF SERVICE: 04/11/2020 SUBJECTIVE: Charo Godfrey is a 49-year-old female, status post trach and PEG. X-ray looks much better. OBJECTIVE: VITAL SIGNS: Temperature 97, blood pressure 105/65, respiratory rate is 18, and sat is 100%. CHEST: Decreased breath sounds. No wheezing. CARDIAC: Normal S1, S2. No gallops. ABDOMEN: No masses. LABORATORY DATA: PO2 is 96, pCO2 40%, PEEP of 9, bilevel. White count 10,000. Lytes are normal. ASSESSMENT: Coronavirus positive pneumonia, respiratory failure, encephalopathy. PLAN: We will try and decrease sedation. Can adjust vent. Start weaning slowly. One-half hour of critical care time. Job ID: [id number]
--- NOTE | 2020-04-11 15:39 | PDOC.EVN ---
Event Note - Event Note Event Note: afebrile, normotensive. - pt not seen due to limit provider exposure to COVID. labs, meds reviewd. CCM notes reviewed. -repeat COVID +ve -palliative on board trach and peg on 16 Mild Leukocytosis------------>resolved. --on IV steroid. -sedated w.. propofol and fentanyl
--- NOTE | 2020-04-11 23:03 | PRG ---
DATE OF SERVICE: 04/11/2020 The patient was evaluated this evening on postop day #1, status post trach and PEG placement. Dr. Bolanos did ask me to stop by and evaluate the patient's trach. It was working appropriately. There was minimal bleeding around the site with only a small amount of dry blood on the drain sponge. It was sitting appropriately and the patient appeared to be having no respiratory issues. Nursing can remove the trach sutures on postprocedure day #7. There are no other concerns from trauma about the trach and we will sign off. Please re-consult us if there are any further concerns. Job ID: [id number]
[2020-04-12] MEDS: fentaNYL Citrate/PF 2,000 MCG in Sodium Chloride 0.9% 60 ML IV SCH (01:00)
[2020-04-12 04:42] LABS: #Basophils 0.1 thou/uL (0.0-0.2); #Eosinphils 0.3 thou/uL (0.0-0.7); #Lymphocytes 1.4 thou/uL (1.20-3.40); #Monocytes 0.8 thou/uL (0.11-0.59); #Neutrophils 7.4 thou/uL (1.40-6.50); %Basophils 0.6 % (0.0-1.0); %Eosinophils 3.5 % (0.0-10.0); %Lymphocytes 14.4 % (21.0-51.0); %Monocytes 7.5 % (0.0-10.0); Hemoglobin 9.9 g/dL (12.0-16.0); Mean Corpuscular HGB CONC 31.4 g/dL (32.0-36.0); Mean Corpuscular Hemoglobin 27.2 pg (27.0-31.0); Mean Corpuscular Volume 86.8 fL (78.0-98.0); Mean Platelet Volume 8.1 fL (7.4-10.4); Platelet Count 354 thou/uL (130-400); RBC Distribution Width 16.8 % (11.5-14.5); Red Blood Cell (RBC) Count 3.64 mill/uL (4.20-5.40)
[2020-04-12 05:01] LABS: Anion Gap 8 mmol/L (10-20); BUN (Urea Nitrogen) 15 mg/dL (9.8-20.1); Calc. Creatinine Clearance 151 mL/min (70-130); Calcium 8.1 mg/dL (7.8-10.44); Carbon Dioxide 32 mmol/L (22-29); Chloride 103 mmol/L (98-107); Estimated GFR-MDRD Greater than 90; Glucose 110 mg/dL (70-105); Potassium 3.5 mmol/L (3.5-5.1); Sodium 139 mmol/L (136-145)
[2020-04-12 07:38] LABS: Actual Bicarbonate (HCO3a) 28.1 mEq/L (22-28); Base Excess (BEa) 2.5 mEq/L (-2.0 to +3.0); CO2 Tension 46.9 mmHg (35.0-45.0); Calcium, Ionized (arterial) 1.18 mmol/L (1.12-1.30); Carboxyhemoglobin (COHb) 1.1 gm% (0.0-3.0); Hemoglobin (Hb) 15.3 g/dL (12.0-16.0); O2 Tension (PaO2), arterial 75.7 mmHg (80.0-100.0); Potassium - ABG Lab 3.46 mmol/L (3.70-5.30)
[2020-04-12 07:57] LABS: ALV-art Gradient 150.875 (0-20); Puncture Site RRAD
[2020-04-12] MEDS: Ascorbic Acid 500 mg Chewable Tablet PO SCH (08:25)
[2020-04-12] MEDS: Sodium Chloride 0.9% 1,000 ML IV SCH ×2 (08:25→17:03)
[2020-04-12] MEDS: Zinc Sulfate 220 MG CAP PO SCH (08:26)
[2020-04-12] MEDS: Famotidine/PF 20 mg/2ml Vial SLOW IVP SCH ×2 (08:26→20:42)
[2020-04-12] MEDS: Enoxaparin Sodium 40 MG/0.4 ML SYRINGE SC SCH ×2 (08:26→20:42)
[2020-04-12] MEDS: methylPREDNISolone Sod Succ 40 MG VIAL IVP SCH (08:27)
--- NOTE | 2020-04-12 08:43 | RAD ---
SINGLE VIEW OF THE CHEST: Date: 04/12/2020 COMPARISON: 04/11/2020. HISTORY: Pneumonia. FINDINGS: Single view of the chest shows a normal sized cardiomediastinal silhouette. Tracheostomy is unchanged in position. Diffuse increased interstitial lung markings are present. Superimposed air space opacit ies may be present. IMPRESSION: Stable exam. POS: YVETTE
--- NOTE | 2020-04-12 11:00 | PRG ---
DATE OF SERVICE: 04/12/2020 SUBJECTIVE: Charo Godfrey is a 49-year-old female who is status post trach and PEG. She is doing better. She is down to IMV. OBJECTIVE: VITAL SIGNS: Pulse 94, sats 98%, blood pressure 115/48. Urine output has been good. CHEST: Decreased breath sounds. Minimal crackles. CARDIAC: Normal S1 and S2. No gallop. ABDOMEN: Soft. NEUROLOGIC: She opens her eyes, responsive. LABORATORY DATA: White count 10,000, H and H of 9 and 31, platelet count 354. PO2 of 75, pCO2 of . Lytes are normal. Bicarb is 32. IMPRESSION: Respiratory failure, status post trach and PEG, gram-positive pneumonia. PLAN: Continue steroids, minimize sedation, slowly wean. Hopefully, we will get her on a trach collar in the next day or two. One-half hour of critical time. Job ID: [id number]
--- NOTE | 2020-04-12 14:14 | PDOC.EVN ---
Event Note - Event Note Event Note: afebrile, normotensive. - pt not seen due to limit provider exposure to COVID. labs, meds reviewd. CCM notes reviewed. -repeat COVID +ve -palliative on board trach and peg on 16 Mild Leukocytosis------------>resolved. --on IV steroid. -sedated w.. propofol and fentanyl - no change - trying to get her off the vent and wean off the sedation.
[2020-04-13 04:23] LABS: #Basophils 0.1 thou/uL (0.0-0.2); #Eosinphils 0.4 thou/uL (0.0-0.7); #Lymphocytes 1.6 thou/uL (1.20-3.40); #Monocytes 0.9 thou/uL (0.11-0.59); %Eosinophils 3.9 % (0.0-10.0); %Lymphocytes 16.4 % (21.0-51.0); %Monocytes 8.6 % (0.0-10.0); %Neutrophils 70.2 % (42.0-75.0); Hemoglobin 10.2 g/dL (12.0-16.0); Mean Corpuscular HGB CONC 31.7 g/dL (32.0-36.0); Mean Corpuscular Hemoglobin 27.7 pg (27.0-31.0); Mean Corpuscular Volume 87.4 fL (78.0-98.0); Mean Platelet Volume 7.8 fL (7.4-10.4); Platelet Count 356 thou/uL (130-400); RBC Distribution Width 16.8 % (11.5-14.5); Red Blood Cell (RBC) Count 3.67 mill/uL (4.20-5.40)
[2020-04-13 04:39] LABS: Anion Gap 8 mmol/L (10-20); BUN (Urea Nitrogen) 14 mg/dL (9.8-20.1); Calc. Creatinine Clearance 146 mL/min (70-130); Calcium 8.2 mg/dL (7.8-10.44); Carbon Dioxide 31 mmol/L (22-29); Chloride 104 mmol/L (98-107); Estimated GFR-MDRD Greater than 90; Glucose 117 mg/dL (70-105); Potassium 3.4 mmol/L (3.5-5.1); Sodium 140 mmol/L (136-145)
[2020-04-13 07:49] LABS: Actual Bicarbonate (HCO3a) 29.5 mEq/L (22-28); Base Excess (BEa) 4.7 mEq/L (-2.0 to +3.0); CO2 Tension 44.5 mmHg (35.0-45.0); Calcium, Ionized (arterial) 1.17 mmol/L (1.12-1.30); Carboxyhemoglobin (COHb) 0.4 gm% (0.0-3.0); Hemoglobin (Hb) 11.3 g/dL (12.0-16.0); Potassium - ABG Lab 3.48 mmol/L (3.70-5.30); pH, Arterial 7.44 (7.35-7.45)
[2020-04-13 08:04] LABS: Puncture Site RRAD
[2020-04-13 08:05] LABS: ALV-art Gradient 151.575 (0-20)
--- NOTE | 2020-04-13 08:47 | RAD ---
SINGLE VIEW CHEST: HISTORY: Pneumonia. COMPARISON: 04/12/20 FINDINGS: A single view of the chest shows a normal sized cardiomediastinal silhouette. Tracheostomy is unchang ed in position. Stable multifocal infiltrates are seen in the lungs. IMPRESSION: Stable examination. POS: YVETTE
[2020-04-13] MEDS: Ascorbic Acid 500 mg Chewable Tablet PO SCH (09:17)
[2020-04-13] MEDS: Famotidine/PF 20 mg/2ml Vial SLOW IVP SCH ×2 (09:17→20:43)
[2020-04-13] MEDS: Enoxaparin Sodium 40 MG/0.4 ML SYRINGE SC SCH ×2 (09:17→20:42)
[2020-04-13] MEDS: Zinc Sulfate 220 MG CAP PO SCH (09:17)
[2020-04-13] MEDS: methylPREDNISolone Sod Succ 40 MG VIAL IVP SCH (09:18)
--- NOTE | 2020-04-13 10:40 | PRG ---
DATE OF SERVICE: 04/13/2020 SUBJECTIVE: Charo Godfrey is a 49-year-old female awake, alert, responsive, on 25 mcg of fentanyl. OBJECTIVE: VITAL SIGNS: Blood pressure 128/70, temperature 97, sats 90%. I's and O's are good. CHEST: No wheezing or crackles. CARDIAC: Normal S1, S2. No gallops. ABDOMEN: No masses. LABORATORY DATA: PO2 is 78, pCO2 of 40% . Lytes are normal. IMPRESSION: 1. Respiratory failure. 2. Coronavirus positive pneumonia, slowly improving. PLAN: Continue steroids. We will try to get her on CPAP. Eventually, placement. TIME SPENT: One-half hour of critical care time. Job ID: [id number]
--- NOTE | 2020-04-13 13:56 | PDOC.EVN ---
Event Note - Event Note Event Note: afebrile, normotensive. - pt not seen due to limit provider exposure to COVID. labs, meds reviewd. CCM notes reviewed. -repeat COVID +ve trach and peg on 16 Mild Leukocytosis------------>resolved. --on IV steroid. -sedated w.. propofol and fentanyl - trying to get her off the vent and wean off the sedation. ------plan to put her on cpap. -palliative on board
[2020-04-13] MEDS: fentaNYL Citrate/PF 2,000 MCG in Sodium Chloride 0.9% 60 ML IV SCH (16:56)
[2020-04-13] MEDS: Sodium Chloride 0.9% 1,000 ML IV SCH ×2 (17:33→20:00)
[2020-04-14 04:48] LABS: #Basophils 0.1 thou/uL (0.0-0.2); #Eosinphils 0.4 thou/uL (0.0-0.7); #Lymphocytes 1.9 thou/uL (1.20-3.40); #Monocytes 1.2 thou/uL (0.11-0.59); %Basophils 0.6 % (0.0-1.0); %Eosinophils 2.4 % (0.0-10.0); %Monocytes 7.9 % (0.0-10.0); %Neutrophils 77.1 % (42.0-75.0); Hemoglobin 9.8 g/dL (12.0-16.0); Mean Corpuscular HGB CONC 30.9 g/dL (32.0-36.0); Mean Corpuscular Hemoglobin 27.1 pg (27.0-31.0); Mean Corpuscular Volume 87.8 fL (78.0-98.0); Platelet Count 346 thou/uL (130-400); RBC Distribution Width 17.1 % (11.5-14.5); Red Blood Cell (RBC) Count 3.61 mill/uL (4.20-5.40); White Blood Cell (WBC) Count 15.6 thou/uL (4.8-10.8)
[2020-04-14 05:16] LABS: Anion Gap 8 mmol/L (10-20); BUN (Urea Nitrogen) 16 mg/dL (9.8-20.1); Calc. Creatinine Clearance 156 mL/min (70-130); Calcium 8.5 mg/dL (7.8-10.44); Carbon Dioxide 32 mmol/L (22-29); Chloride 105 mmol/L (98-107); Estimated GFR-MDRD Greater than 90; Glucose 112 mg/dL (70-105); Potassium 3.5 mmol/L (3.5-5.1); Sodium 141 mmol/L (136-145)
[2020-04-14 06:56] LABS: Actual Bicarbonate (HCO3a) 26.6 mEq/L (22-28); Base Excess (BEa) 1.9 mEq/L (-2.0 to +3.0); CO2 Tension 42.1 mmHg (35.0-45.0); Calcium, Ionized (arterial) 1.18 mmol/L (1.12-1.30); Carboxyhemoglobin (COHb) 0.5 gm% (0.0-3.0); Hemoglobin (Hb) 11.2 g/dL (12.0-16.0); O2 Tension (PaO2), arterial 65.2 mmHg (80.0-100.0); Potassium - ABG Lab 3.65 mmol/L (3.70-5.30); pH, Arterial 7.42 (7.35-7.45)
[2020-04-14 06:57] LABS: Puncture Site RA
[2020-04-14 06:58] LABS: ALV-art Gradient 96.075 (0-20)
--- NOTE | 2020-04-14 07:58 | RAD ---
EXAM: Single view of the chest HISTORY: Pneumonia COMPARISON: 04/13/2020 FINDINGS: Single view of the chest shows a normal sized cardiomediastinal silhouette. The tracheosto my is unchanged in position. Are stable next alveolar/interstitial opacities in the lungs. The bones are unremarkable IMPRESSION: Stable exam
[2020-04-14] MEDS: Enoxaparin Sodium 40 MG/0.4 ML SYRINGE SC SCH ×2 (08:18→20:31)
[2020-04-14] MEDS: Famotidine/PF 20 mg/2ml Vial SLOW IVP SCH ×2 (08:18→20:31)
[2020-04-14] MEDS: Zinc Sulfate 220 MG CAP PO SCH (08:19)
[2020-04-14] MEDS: methylPREDNISolone Sod Succ 40 MG VIAL IVP SCH (08:19)
[2020-04-14] MEDS: Ascorbic Acid 500 mg Chewable Tablet PO SCH (08:19)
--- NOTE | 2020-04-14 09:28 | PRG ---
DATE OF SERVICE: 04/14/2020 SUBJECTIVE: This morning, she is more awake, responsive. OBJECTIVE: VITAL SIGNS: Pulse 105, blood pressure 130/80, sats 96%, respirations 27 shallow respirations. Says she is not having difficulty breathing or pain. She is wiggling her toes. She is very weaker, considering 28 days in the ICU. CHEST: Reveals no crackles, no wheezing. CARDIAC: ASSESSMENT AND PLAN: Respiratory failure, coronavirus positive pneumonia, acute respiratory distress syndrome, severe deconditioning. Low-dose Seroquel is being initiated. Trach collar today. Continue supportive care. One-half hour of critical care time. Job ID: [id number]
--- NOTE | 2020-04-14 12:21 | PDOC.HOSPP ---
- Subjective Encounter Date: 04/14/20 Encounter Time: 10:45 non-verbal Subjective: Patient seen and examined bedside today, patient has trach and PEG, patient is alert, as per nursing patient was depressed - Objective Vital Signs & Weight: Vital Signs (12 hours) Temp Pulse Resp BP Pulse Ox 04/14/20 08:00 29 H 95 04/14/20 07:00 98.9 F 04/14/20 06:36 90 128/76 04/14/20 06:00 21 H 04/14/20 04:00 99.4 F 23 H 04/14/20 02:14 94 115/73 04/14/20 02:00 24 H 04/14/20 00:37 102 H 122/78 Weight Admit Weight 155 lb 6.4 oz Weight 155 lb 1.6 oz Most Recent Monitor Data Heart Rate from ECG 113 NIBP 143/87 NIBP BP-Mean 105 Respiration from ECG 29 SpO2 95 I&O: 04/13/20 04/14/20 04/15/20 06:59 06:59 06:59 Intake Total 1890 7837 60 Output Total 1170 1110 755 [facility]571 [phone] Result Diagrams: 04/14/20 04:30 04/14/20 04:30 Radiology Reviewed by me: Yes (All radiological investigations reviewed) EKG Reviewed by me: Yes Hospitalist ROS - Review of Systems ROS unobtainable: due to endotracheal tube Other: Unable to review due to tracheostomy - Medication Medications: Active Medications Generic Name Dose Route Start Last Admin Trade Name Freq PRN Reason Stop Dose Admin Acetaminophen 1,000 mg 03/17/20 17:29 04/04/20 12:36 Tylenol PO 1,000 mg Q6H PRN Administration Fever or Pain Ascorbic Acid 1,000 mg 03/27/20 09:00 04/14/20 08:19 Vitamin C PO 1,000 mg DAILY NEHAL Administration Bisacodyl 10 mg 04/04/20 12:35 04/04/20 12:38 Dulcolax [place] 10 mg DAILYPRN PRN Administration Constipation Enoxaparin Sodium 40 mg 04/07/20 21:00 04/14/20 08:18 Lovenox SC 40 mg 0900,2100 NEHAL Administration Famotidine 20 mg 04/08/20 09:00 04/14/20 08:18 Pepcid SLOW IVP 20 mg BID NEHAL Administration Guaifenesin/Dextromethorphan 15 ml 03/24/20 23:30 03/27/20 20:59 Diabetic Tussin Dm PO 15 ml Q4H PRN Administration Cough Sodium Chloride 1,000 mls @ 50 mls/hr 03/28/20 19:00 04/13/20 20:00 Normal Saline 0.9% IV Not Given .Q20H NEHAL Fentanyl Citrate 2,000 mcg/ 100 mls @ 0 mls/hr 04/07/20 15:15 04/13/20 16:56 Sodium Chloride IV 100 mls INF NEHAL Administration Protocol Per Protocol Methylprednisolone Sodium Succinate 40 mg 04/12/20 09:00 04/14/20 08:19 Solu-Medrol IVP 40 mg DAILY NEHAL Administration Propofol 1,000 mg 03/28/20 13:21 04/11/20 08:43 Diprivan IV 04/27/20 13:21 1,000 mg INF PRN Administration TO ACHIEVE GOAL RASS Protocol Senna/Docusate Sodium 2 tab 03/17/20 00:38 04/04/20 05:30 Senokot S PO 2 tab BIDPRN PRN Administration Constipation Sodium Chloride 10 ml 03/28/20 09:00 04/14/20 08:20 Flush - Normal Saline IVF 10 ml Q12HR NEHAL Administration Zinc Sulfate 220 mg 03/27/20 09:00 04/14/20 08:19 Zinc Sulfate PO 220 mg DAILY NEHAL Administration - Exam General Appearance: NAD, awake alert Eye: PERRL, anicteric sclera ENT: normocephalic atraumatic, no oropharyngeal lesions ENT - other findings: Tracheostomy in place Neck: supple, symmetric, no JVD, no thyromegaly Heart: RRR, no murmur, no gallops, no rubs Heart - other findings: Tachycardia Respiratory - other findings: Coarse breath sounds Gastrointestinal: soft, non-tender, non-distended, normal bowel sounds Gastrointestinal - other findings: PEG tube in place Extremities: no cyanosis, no clubbing Skin: normal turgor Neurological: no focal deficits Musculoskeletal: normal tone Psychiatric: normal affect Hosp A/P - Plan old records reviewed/req, PT/OT, foster care social worker, DVT proph w/lovenox Assessment Acute respiratory failure with hypoxia due to COVID-19 infection status post trach and PEG Viral pneumonia due to COVID-19 COVID-19 positive test (U07.1, COVID-19) with Acute Respiratory Distress Syndrome (ARDS) (J80, ARDS) Severe physical deconditioning Anemia normocytic normochromic Plan Continue oxygen through trach collar Patient will need possible evaluation for LTAC Continue Solu-Medrol Seroquel started today Medication reviewed and continue provide symptomatic and supportive care Tube feeding
[2020-04-14] MEDS: Lorazepam 2 MG/ML VIAL SLOW IVP PRN (15:41)
[2020-04-14] MEDS: Sodium Chloride 0.9% 1,000 ML IV SCH (17:03)
[2020-04-15 05:00] LABS: #Basophils 0.1 thou/uL (0.0-0.2); #Eosinphils 0.3 thou/uL (0.0-0.7); #Lymphocytes 2.4 thou/uL (1.20-3.40); #Monocytes 1.1 thou/uL (0.11-0.59); #Neutrophils 10.1 thou/uL (1.40-6.50); %Basophils 0.7 % (0.0-1.0); %Eosinophils 2.4 % (0.0-10.0); %Lymphocytes 17.1 % (21.0-51.0); %Monocytes 7.9 % (0.0-10.0); Hemoglobin 10.4 g/dL (12.0-16.0); Mean Corpuscular HGB CONC 30.5 g/dL (32.0-36.0); Mean Corpuscular Hemoglobin 26.7 pg (27.0-31.0); Mean Corpuscular Volume 87.7 fL (78.0-98.0); Mean Platelet Volume 8.1 fL (7.4-10.4); Platelet Count 355 thou/uL (130-400); RBC Distribution Width 17.5 % (11.5-14.5); Red Blood Cell (RBC) Count 3.88 mill/uL (4.20-5.40)
[2020-04-15 05:24] LABS: Anion Gap 10 mmol/L (10-20); BUN (Urea Nitrogen) 16 mg/dL (9.8-20.1); Calc. Creatinine Clearance 130 mL/min (70-130); Calcium 8.9 mg/dL (7.8-10.44); Carbon Dioxide 29 mmol/L (22-29); Chloride 106 mmol/L (98-107); Estimated GFR-MDRD Greater than 90; Glucose 102 mg/dL (70-105); Potassium 3.4 mmol/L (3.5-5.1); Sodium 142 mmol/L (136-145)
[2020-04-15] MEDS: Lorazepam 2 MG/ML VIAL SLOW IVP PRN ×3 (05:42→21:25)
[2020-04-15] MEDS: Famotidine/PF 20 mg/2ml Vial SLOW IVP SCH ×2 (07:29→20:37)
[2020-04-15] MEDS: Ascorbic Acid 500 mg Chewable Tablet PO SCH (07:29)
[2020-04-15] MEDS: methylPREDNISolone Sod Succ 40 MG VIAL IVP SCH (07:30)
[2020-04-15] MEDS: Zinc Sulfate 220 MG CAP PO SCH (07:30)
[2020-04-15] MEDS: Enoxaparin Sodium 40 MG/0.4 ML SYRINGE SC SCH ×2 (07:30→20:37)
[2020-04-15] MEDS: Sodium Chloride 0.9% 1,000 ML IV SCH (07:31)
[2020-04-15] MEDS ORDERED: hydrALAZINE 20 MG/ML VIAL SLOW IVP PRN (08:40)
[2020-04-15] MEDS ORDERED: Loratadine 10 MG TAB PER TUBE PRN (08:40)
[2020-04-15] MEDS ORDERED: Diabetic Tussin 200 MG/10 ML UDCUP PER TUBE PRN (08:40)
[2020-04-15] MEDS ORDERED: Loperamide HCl 2 MG CAP PER TUBE PRN (08:40)
[2020-04-15] MEDS ORDERED: Temazepam 15 MG CAP PER TUBE PRN (08:40)
[2020-04-15] MEDS ORDERED: Metoclopramide HCl 10 MG/2 ML VIAL IVP PRN (08:40)
[2020-04-15] MEDS ORDERED: Ondansetron ODT 4 MG TAB PO PRN (08:40)
[2020-04-15] MEDS ORDERED: Cepastat Lozenges 1 LOZ PO PRN (08:40)
[2020-04-15] MEDS ORDERED: Calcium Carbonate 500 MG ChewTAB PER TUBE PRN (08:40)
[2020-04-15] MEDS ORDERED: Sodium Chloride 0.65% Nasal 44 ML BOT EA NARE PRN (08:40)
[2020-04-15] MEDS ORDERED: Ondansetron PF 4 MG/2 ML Vial IVP PRN (08:40)
[2020-04-15] MEDS ORDERED: Acetaminophen 500 MG TAB PER TUBE PRN (08:40)
--- NOTE | 2020-04-15 08:46 | RAD ---
PORTABLE CHEST 1 VIEW: Date: 04/15/2020 Time: 0757 hours HISTORY: Pneumonia. FINDINGS/IMPRESSION: Comparison made with exam from previous day. Tracheostomy tube remains in place. Diffuse bilateral interstitial and alveolar opacities are again s een. No pneumothoraces or large effusions are identified. POS: ANUP
[2020-04-15] MEDS ORDERED: Labetalol HCl 100 MG/20 ML VIAL ONE (08:55)
--- NOTE | 2020-04-15 11:32 | PRG ---
DATE OF SERVICE: 04/15/2020 SUBJECTIVE: Charo Godfrey was having some difficulty breathing last night. Sats were dropped. Otherwise, she is doing well, on trach collar. OBJECTIVE: VITAL SIGNS: sats are better at 98, but she is still somewhat tachycardic. CHEST: Bilateral rhonchi and crackles. CARDIAC: Normal S1, S2. No gallops. ABDOMEN: No masses. IMPRESSION: Respiratory failure, packer positive pneumonia, prolonged intubation, trach in place. Ordering a BNP. Otherwise, we need to continue high-dose Lovenox, steroids, antianxiety medication, and empiric antibiotics. We will follow. One-half hour of critical care time. Job ID: [id number]
--- NOTE | 2020-04-15 12:44 | EKG ---
Test Reason : Blood Pressure : / mmHG Vent. Rate : 119 BPM Atrial Rate : 119 BPM P-R Int : 140 ms QRS Dur : 068 ms QT Int : 300 ms P-R-T Axes : 050 017 040 degrees QTc Int : 422 ms Sinus tachycardia Otherwise normal ECG When compared with ECG of 16-MAR-2020 23:01, Premature ventricular complexes are no longer Present Nonspecific T wave abnormality now evident in Anterior leads Confirmed by MOISES ARCINIEGA M.D. ([id number]) on 04/15/2020 12:44:11 PM Referred By: Confirmed By:MOISES ARCINIEGA M.D.
--- NOTE | 2020-04-15 12:48 | PDOC.HOSPP ---
- Subjective Encounter Date: 04/15/20 Encounter Time: 11:00 Subjective: Patient seen and examined. No overnight events - Objective Vital Signs & Weight: Vital Signs (12 hours) Temp Pulse BP Pulse Ox 04/15/20 12:00 98.3 F 04/15/20 10:35 90 128/76 04/15/20 07:54 98.1 F 04/15/20 07:16 96 04/15/20 07:15 96 04/15/20 07:00 98.1 F 04/15/20 04:00 99.4 F Weight Admit Weight 155 lb 6.4 oz Weight 153 lb 3.2 oz Most Recent Monitor Data Heart Rate from ECG 121 NIBP 139/113 NIBP BP-Mean 121 Respiration from ECG 28 SpO2 98 I&O: 04/14/20 04/15/20 04/16/20 06:59 06:59 06:59 Intake Total 2546 2564 0 Output Total 3290 3480 680 [facility] -[phone] Result Diagrams: 04/15/20 04:40 04/15/20 04:40 EKG Reviewed by me: Yes Hospitalist ROS - Review of Systems ROS unobtainable: due to endotracheal tube - Medication Medications: Active Medications Generic Name Dose Route Start Last Admin Trade Name Freq PRN Reason Stop Dose Admin Ascorbic Acid 1,000 mg 03/27/20 09:00 04/15/20 07:29 Vitamin C PO 1,000 mg DAILY NEHAL Administration Bisacodyl 10 mg 04/04/20 12:35 04/04/20 12:38 Dulcolax [place] 10 mg DAILYPRN PRN Administration Constipation Enoxaparin Sodium 40 mg 04/07/20 21:00 04/15/20 07:30 Lovenox SC 40 mg 0900,2100 NEHAL Administration Famotidine 20 mg 04/08/20 09:00 04/15/20 07:29 Pepcid SLOW IVP 20 mg BID NEHAL Administration Guaifenesin/Dextromethorphan 15 ml 03/24/20 23:30 03/27/20 20:59 Diabetic Tussin Dm PO 15 ml Q4H PRN Administration Cough Sodium Chloride 1,000 mls @ 50 mls/hr 03/28/20 19:00 04/15/20 07:31 Normal Saline 0.9% IV 1,000 mls .Q20H NEHAL Administration Fentanyl Citrate 2,000 mcg/ 100 mls @ 0 mls/hr 04/07/20 15:15 04/13/20 16:56 Sodium Chloride IV 100 mls INF NEHAL Administration Protocol Per Protocol Lorazepam 0.5 mg 04/14/20 15:28 04/14/20 15:41 Ativan SLOW IVP 0.5 mg Q6H PRN Administration Anxiety/Agitation Methylprednisolone Sodium Succinate 40 mg 04/12/20 09:00 04/15/20 07:30 Solu-Medrol IVP 40 mg DAILY NEHAL Administration Propofol 1,000 mg 03/28/20 13:21 04/11/20 08:43 Diprivan IV 04/27/20 13:21 1,000 mg INF PRN Administration TO ACHIEVE GOAL RASS Protocol Quetiapine Fumarate 25 mg 04/15/20 09:00 04/15/20 07:30 Seroquel PO 25 mg DAILY NEHAL Administration Senna/Docusate Sodium 2 tab 03/17/20 00:38 04/04/20 05:30 Senokot S PO 2 tab BIDPRN PRN Administration Constipation Sodium Chloride 10 ml 03/28/20 09:00 04/15/20 07:30 Flush - Normal Saline IVF 10 ml Q12HR NEHAL Administration Zinc Sulfate 220 mg 03/27/20 09:00 04/15/20 07:30 Zinc Sulfate PO 220 mg DAILY NEHAL Administration - Exam General Appearance: NAD, awake alert Eye: PERRL, anicteric sclera ENT: normocephalic atraumatic, no oropharyngeal lesions Neck: supple, symmetric, no JVD Neck - other findings: Tracheostomy in place Heart: RRR, no murmur, no gallops, no rubs Respiratory: CTAB, no wheezes, no rales, no ronchi Gastrointestinal: soft, non-tender, non-distended, normal bowel sounds Gastrointestinal - other findings: PEG tube in place Extremities: no cyanosis, no clubbing, no edema Skin: normal turgor, no lesions Neurological: no focal deficits Musculoskeletal: normal tone Psychiatric: normal affect, normal behavior Hosp A/P - Plan old records reviewed/req, plan discussed w/ family, PT/OT, social insurance adviser Assessment Acute respiratory failure with hypoxia due to COVID-19 infection status post trach and PEG Viral pneumonia due to COVID-19 COVID-19 positive test (U07.1, COVID-19) with Acute Respiratory Distress Syndrome (ARDS) (J80, ARDS) Severe physical deconditioning Anemia normocytic normochromic Plan Continue oxygen through trach collar Patient will need possible evaluation for LTAC Continue Solu-Medrol Seroquel started today Medication reviewed and continue provide symptomatic and supportive care Tube feeding
[2020-04-15] MEDS: Labetalol HCl 100 MG/20 ML VIAL SLOW IVP PRN (16:43)
[2020-04-15] MEDS: Doxycycline 100 MG CAP PO SCH (20:37)
[2020-04-16] MEDS: Sodium Chloride 0.9% 1,000 ML IV SCH (03:47)
[2020-04-16 04:23] LABS: #Basophils 0.1 thou/uL (0.0-0.2); #Eosinphils 0.3 thou/uL (0.0-0.7); #Lymphocytes 2.1 thou/uL (1.20-3.40); #Monocytes 1.2 thou/uL (0.11-0.59); #Neutrophils 10.4 thou/uL (1.40-6.50); %Basophils 0.6 % (0.0-1.0); %Eosinophils 2.5 % (0.0-10.0); %Lymphocytes 14.6 % (21.0-51.0); %Monocytes 8.7 % (0.0-10.0); %Neutrophils 73.7 % (42.0-75.0); Hemoglobin 10.4 g/dL (12.0-16.0); Mean Corpuscular HGB CONC 31.7 g/dL (32.0-36.0); Mean Corpuscular Hemoglobin 27.7 pg (27.0-31.0); Mean Corpuscular Volume 87.4 fL (78.0-98.0); Mean Platelet Volume 8.2 fL (7.4-10.4); Platelet Count 321 thou/uL (130-400); RBC Distribution Width 17.5 % (11.5-14.5); Red Blood Cell (RBC) Count 3.76 mill/uL (4.20-5.40); White Blood Cell (WBC) Count 14.2 thou/uL (4.8-10.8)
[2020-04-16 04:43] LABS: Anion Gap 10 mmol/L (10-20); BUN (Urea Nitrogen) 15 mg/dL (9.8-20.1); Calc. Creatinine Clearance 130 mL/min (70-130); Calcium 9.2 mg/dL (7.8-10.44); Carbon Dioxide 28 mmol/L (22-29); Chloride 106 mmol/L (98-107); Estimated GFR-MDRD Greater than 90; Glucose 103 mg/dL (70-105); Potassium 3.3 mmol/L (3.5-5.1); Sodium 141 mmol/L (136-145)
[2020-04-16] MEDS: Famotidine/PF 20 mg/2ml Vial SLOW IVP SCH ×2 (07:10→20:29)
[2020-04-16] MEDS: Ascorbic Acid 500 mg Chewable Tablet PO SCH (07:10)
[2020-04-16] MEDS: Zinc Sulfate 220 MG CAP PO SCH (07:11)
[2020-04-16] MEDS: Enoxaparin Sodium 40 MG/0.4 ML SYRINGE SC SCH ×2 (07:11→20:29)
[2020-04-16] MEDS: methylPREDNISolone Sod Succ 40 MG VIAL IVP SCH (07:11)
[2020-04-16] MEDS: Lorazepam 2 MG/ML VIAL SLOW IVP PRN (07:28)
--- NOTE | 2020-04-16 08:10 | RAD ---
EXAM: Single view of the chest HISTORY: Pneumonia COMPARISON: 04/15/2020 FINDINGS: Single view of the chest shows a normal sized cardiomediastinal silhouette. Tracheostomy i s unchanged in position. Multifocal diffuse airspace opacities are seen in the lungs. The bones are unremarkable. There may be a G-tube in the stomach. IMPRESSION: Diffuse multifocal infiltrates
[2020-04-16] MEDS: Doxycycline 100 MG CAP PO SCH ×2 (09:09→20:29)
[2020-04-16] MEDS ORDERED: Furosemide 20 MG/2 ML VIAL SLOW IVP SCH (09:45)
--- NOTE | 2020-04-16 10:07 | PRG ---
DATE OF SERVICE: 04/16/2020 SUBJECTIVE: Charo Godfrey remains on the trach collar. Saturations are 100%. Unfortunately, x-ray still shows the impressive diffuse infiltrates. OBJECTIVE: VITAL SIGNS: Pulse 101, blood pressure 154/100, respirations 28. CHEST: Decreased breath sounds with crackles. No wheezing. CARDIAC: No gallops. Normal S1 and S2. ABDOMEN: No masses. IMPRESSION: Theodore positive pneumonia, day #29. PLAN: I have added to her present regime. Continue steroids. Continue antibiotics. Labs otherwise unremarkable. One-half hour of critical care time. Job ID: [id number]
--- NOTE | 2020-04-16 15:41 | PDOC.FMACP ---
Advance Care Planning - Problem (1) Palliative care encounter Status: Acute Code(s): Z51.5 - ENCOUNTER FOR PALLIATIVE CARE (2) Acute respiratory failure with hypoxia Status: Acute Code(s): J96.01 - ACUTE RESPIRATORY FAILURE WITH HYPOXIA (3) Pneumonia due to COVID-19 virus Status: Acute Code(s): U07.1 - COVID-19; J12.89 - OTHER VIRAL PNEUMONIA (4) Sinus tachycardia Status: Acute Code(s): R00.0 - TACHYCARDIA, UNSPECIFIED - Note Participants: family, palliative care Summary: Palliative Care has had several conversations in relation to Advanced Care Planning with family of Ms Godfrey via phone. The diagnosis, prognosis and goals of care have been and continue to be discussed. Appropriate forms and documentation to accomplish the goals of care were discussed. All questions were answered. The family relays that Ms Godfrey has no documentation in relation to MPOA or Directive to Physicians. They desire to continue with aggressive measures and hopeful for meaningful recovery. The Palliative Care Team will continue to assist with completion of any outstanding forms that are identified and continue to remain for family support. Please also refer to Alfredo Sebastian RNrelief pilot notes in note section. Time Spent (mins): 20
--- NOTE | 2020-04-16 15:48 | PDOC.HOSPP ---
- Subjective Encounter Date: 04/16/20 Subjective: Patient did not attempt to verbally interact with me or interact otherwise. She does make eye contact and track. - Objective Vital Signs & Weight: Vital Signs (12 hours) Temp Pulse Ox 04/16/20 15:00 98.4 F 04/16/20 07:00 97.9 F 04/16/20 06:57 98 Weight Admit Weight 155 lb 6.4 oz Weight 153 lb 12.8 oz Most Recent Monitor Data Heart Rate from ECG 100 NIBP 142/91 NIBP BP-Mean 108 Respiration from ECG 35 SpO2 100 I&O: 04/15/20 04/16/20 04/17/20 06:59 06:59 06:59 Intake Total 2564 2099 0 Output Total 8273 5865 1610 [facility] -[phone] Result Diagrams: 04/16/20 03:50 04/16/20 03:50 Hospitalist ROS - Medication Medications: Active Medications Generic Name Dose Route Start Last Admin Trade Name Freq PRN Reason Stop Dose Admin Ascorbic Acid 1,000 mg 03/27/20 09:00 04/16/20 07:10 Vitamin C PO 1,000 mg DAILY NEHAL Administration Bisacodyl 10 mg 04/04/20 12:35 04/04/20 12:38 Dulcolax [place] 10 mg DAILYPRN PRN Administration Constipation Doxycycline Hyclate 100 mg 04/15/20 21:00 04/16/20 09:09 Vibramycin PO 04/22/20 21:01 100 mg BID NEHAL Administration Enoxaparin Sodium 40 mg 04/07/20 21:00 04/16/20 07:11 Lovenox SC 40 mg 09,2099 NEHAL Administration Famotidine 20 mg 04/08/20 09:00 04/16/20 07:10 Pepcid SLOW IVP 20 mg BID NEHAL Administration Guaifenesin/Dextromethorphan 15 ml 03/24/20 23:30 03/27/20 20:59 Diabetic Tussin Dm PO 15 ml Q4H PRN Administration Cough Sodium Chloride 1,000 mls @ 50 mls/hr 03/28/20 19:00 04/16/20 03:47 Normal Saline 0.9% IV 1,000 mls .Q20H NEHAL Administration Fentanyl Citrate 2,000 mcg/ 100 mls @ 0 mls/hr 04/07/20 15:15 04/13/20 16:56 Sodium Chloride IV 100 mls INF NEHAL Administration Protocol Per Protocol Labetalol HCl 20 mg 04/15/20 08:40 04/15/20 16:43 Normodyne SLOW IVP 20 mg Q4H PRN Administration SBP > 180 and HR >/= 70 Lorazepam 0.5 mg 04/14/20 15:28 04/16/20 07:28 Ativan SLOW IVP 0.5 mg Q6H PRN Administration Anxiety/Agitation Methylprednisolone Sodium Succinate 40 mg 04/12/20 09:00 04/16/20 07:11 Solu-Medrol IVP 40 mg DAILY NEHAL Administration Propofol 1,000 mg 03/28/20 13:21 04/11/20 08:43 Diprivan IV 04/27/20 13:21 1,000 mg INF PRN Administration TO ACHIEVE GOAL RASS Protocol Quetiapine Fumarate 25 mg 04/15/20 09:00 04/16/20 07:10 Seroquel PO 25 mg DAILY NEHAL Administration Senna/Docusate Sodium 2 tab 03/17/20 00:38 04/04/20 05:30 Senokot S PO 2 tab BIDPRN PRN Administration Constipation Sodium Chloride 10 ml 03/28/20 09:00 04/16/20 09:09 Flush - Normal Saline IVF 10 ml Q12HR NEHAL Administration Zinc Sulfate 220 mg 03/27/20 09:00 04/16/20 07:11 Zinc Sulfate PO 220 mg DAILY NEHAL Administration - Exam General Appearance: NAD, awake alert Neck - other findings: Trach with trach collar oxygen Heart: RRR, no murmur, no gallops, no rubs, normal peripheral pulses Respiratory: CTAB, no wheezes, no rales, no ronchi, normal chest expansion, no tachypnea, normal percussion Gastrointestinal: soft, non-tender, non-distended, normal bowel sounds, no palpable masses, no hepatomegaly, no splenomegaly, no bruit Extremities: no cyanosis, no clubbing, no edema Neurological - other findings: Made eye contact but does not interact Musculoskeletal: generalized weakness Psychiatric: flat affect Hosp A/P (1) Acute respiratory failure with hypoxia Code(s): J96.01 - ACUTE RESPIRATORY FAILURE WITH HYPOXIA Status: Acute (2) Hypotension Status: Acute (3) Pneumonia due to COVID-19 virus Code(s): U07.1 - COVID-19; J12.89 - OTHER VIRAL PNEUMONIA Status: Acute (4) Hyperlipidemia Code(s): E78.5 - HYPERLIPIDEMIA, UNSPECIFIED Status: Chronic (5) Acute metabolic encephalopathy Code(s): G93.41 - METABOLIC ENCEPHALOPATHY Status: Acute - Plan Acute hypoxic respiratory failure: On trach collar oxygen. COVID-19 pneumonia: Past acute interventions. Continues on steroids. Acute metabolic encephalopathy: Unclear if this is due to underlying infection or hospital psychoses. She is on Seroquel presently. There is some concern that she is suffering some depression. Disposition: Patient has significant and profound deconditioning and has the new trach with trach collar oxygen. May need LTAC.
[2020-04-16] MEDS: Budesonide 0.5 MG/2 ML NEB INH SCH (19:11)
[2020-04-17] MEDS: Sodium Chloride 0.9% 1,000 ML IV SCH (03:00)
[2020-04-17 04:02] LABS: #Basophils 0.1 thou/uL (0.0-0.2); #Eosinphils 0.3 thou/uL (0.0-0.7); #Lymphocytes 2.4 thou/uL (1.20-3.40); #Monocytes 1.3 thou/uL (0.11-0.59); #Neutrophils 9.1 thou/uL (1.40-6.50); %Basophils 0.5 % (0.0-1.0); %Eosinophils 2.6 % (0.0-10.0); %Lymphocytes 18.2 % (21.0-51.0); %Monocytes 9.9 % (0.0-10.0); %Neutrophils 68.7 % (42.0-75.0); Mean Corpuscular HGB CONC 31.5 g/dL (32.0-36.0); Mean Corpuscular Hemoglobin 27.7 pg (27.0-31.0); Mean Corpuscular Volume 87.9 fL (78.0-98.0); Mean Platelet Volume 9.2 fL (7.4-10.4); Platelet Count 315 thou/uL (130-400); Red Blood Cell (RBC) Count 3.97 mill/uL (4.20-5.40); White Blood Cell (WBC) Count 13.2 thou/uL (4.8-10.8)
[2020-04-17 04:36] LABS: Anion Gap 12 mmol/L (10-20); BUN (Urea Nitrogen) 18 mg/dL (9.8-20.1); Calc. Creatinine Clearance 131 mL/min (70-130); Calcium 9.3 mg/dL (7.8-10.44); Carbon Dioxide 27 mmol/L (22-29); Chloride 105 mmol/L (98-107); Estimated GFR-MDRD Greater than 90; Glucose 93 mg/dL (70-105); Potassium 3.3 mmol/L (3.5-5.1); Sodium 141 mmol/L (136-145)
[2020-04-17] MEDS: Ascorbic Acid 500 mg Chewable Tablet PO SCH (07:21)
[2020-04-17] MEDS: Doxycycline 100 MG CAP PO SCH ×2 (07:23→21:07)
[2020-04-17] MEDS: Enoxaparin Sodium 40 MG/0.4 ML SYRINGE SC SCH ×2 (07:23→21:06)
[2020-04-17] MEDS: Famotidine/PF 20 mg/2ml Vial SLOW IVP SCH ×2 (07:23→21:07)
[2020-04-17] MEDS: methylPREDNISolone Sod Succ 40 MG VIAL IVP SCH (07:24)
[2020-04-17] MEDS: Zinc Sulfate 220 MG CAP PO SCH (07:24)
[2020-04-17] MEDS: Lorazepam 2 MG/ML VIAL SLOW IVP PRN (07:24)
--- NOTE | 2020-04-17 07:52 | RAD ---
EXAM: Single view of the chest HISTORY: Pneumonia COMPARISON: 04/16/2020 FINDINGS: Single view of the chest shows a normal sized cardiomediastinal silhouette. The tracheosto my is unchanged in position. Stable diffuse pulmonary infiltrates are seen. The bones are unremarkable IMPRESSION: Stable multifocal infiltrates
[2020-04-17] MEDS: Budesonide 0.5 MG/2 ML NEB INH SCH ×2 (08:31→19:27)
[2020-04-17] MEDS ORDERED: DC Sedation Protocol FS ONE (09:39)
--- NOTE | 2020-04-17 10:02 | PRG ---
DATE OF SERVICE: SUBJECTIVE: This morning, she is awake, responsive. She remains pretty agitated. OBJECTIVE: VITAL SIGNS: Pulse 94, respirations 27, blood pressure 115/75. I's and O's have been slightly negative. CHEST: No wheezing. No crackles. CARDIAC: Normal S1, S2. No gallops. ABDOMEN: No masses. LABORATORY DATA: Labs are unremarkable. X-ray looks relatively stable. ASSESSMENT AND PLAN: Theodore positive pneumonia, respiratory failure. I want to try and discontinue daily lab on her. She has been here for over 3 weeks. Going to discontinue daily x-rays. We will just obtain as needed lab. Switch over to p.o. prednisone. Continue aggressive PT. One-half hour of critical care time. Job ID: [id number]
[2020-04-17] MEDS: Labetalol HCl 100 MG/20 ML VIAL SLOW IVP PRN (10:32)
[2020-04-17] MEDS: Acetylcysteine 10% 100 MG/ML 30 ml Vial INH SCH ×2 (11:27→19:28)
[2020-04-17 12:16] VITALS: BP 135/92
--- NOTE | 2020-04-17 14:38 | PDOC.HOSPP ---
- Subjective Encounter Date: 04/17/20 Subjective: The patient denies any complaints today. Discussed with nursing. There have been some concerns about her waxing and waning affect. Her Seroquel has been increased by pulmonology. - Objective Vital Signs & Weight: Vital Signs (12 hours) Temp Pulse Pulse Pulse Resp BP BP 04/17/20 12:48 99 F 04/17/20 11:58 94 93 135/92 H 136/92 H 04/17/20 10:32 94 04/17/20 08:31 94 27 H 04/17/20 06:53 04/17/20 06:52 98.7 F 04/17/20 05:00 98.7 F Pulse Ox Pulse Ox Pulse Ox 04/17/20 12:48 04/17/20 11:58 100 100 04/17/20 10:32 04/17/20 08:31 96 04/17/20 06:53 98 04/17/20 06:52 04/17/20 05:00 Weight Admit Weight 155 lb 6.4 oz Weight 2.42 oz Most Recent Monitor Data Heart Rate from ECG 104 NIBP 135/88 NIBP BP-Mean 103 Respiration from ECG 26 SpO2 100 I&O: 04/16/20 04/17/20 04/18/20 06:59 06:59 06:59 Intake Total 2684 6136 Output Total 6989 8525 529 Balance -634 -477 -402 Result Diagrams: 04/17/20 02:49 04/17/20 02:49 Hospitalist ROS - Medication Medications: Active Medications Generic Name Dose Route Start Last Admin Trade Name Freq PRN Reason Stop Dose Admin Acetylcysteine 600 mg 04/17/20 09:00 04/17/20 11:27 Mucomyst 10% (Oral Or Inh) INH Not Given BID NEHAL Ascorbic Acid 1,000 mg 03/27/20 09:00 04/17/20 07:21 Vitamin C PO 1,000 mg DAILY NEHAL Administration Bisacodyl 10 mg 04/04/20 12:35 04/04/20 12:38 Dulcolax [place] 10 mg DAILYPRN PRN Administration Constipation Budesonide 0.5 mg 04/16/20 18:30 04/17/20 08:31 Pulmicort Neb Solution INH 0.5 mg BID-RT NEHAL Administration Doxycycline Hyclate 100 mg 04/15/20 21:00 07/23/20 07:23 Vibramycin PO 04/22/20 21:01 100 mg BID NEHAL Administration Enoxaparin Sodium 40 mg 04/07/20 21:00 04/17/20 07:23 Lovenox SC 40 mg 0900,2100 NEHAL Administration Famotidine 20 mg 04/08/20 09:00 04/17/20 07:23 Pepcid SLOW IVP 20 mg BID NEHAL Administration Guaifenesin/Dextromethorphan 15 ml 03/24/20 23:30 03/27/20 20:59 Diabetic Tussin Dm PO 15 ml Q4H PRN Administration Cough Sodium Chloride 1,000 mls @ 50 mls/hr 03/28/20 19:00 04/17/20 03:00 Normal Saline 0.9% IV 1,000 mls .Q20H NEHAL Administration Labetalol HCl 20 mg 04/15/20 08:40 04/17/20 10:32 Normodyne SLOW IVP 20 mg Q4H PRN Administration SBP > 180 and HR >/= 70 Senna/Docusate Sodium 2 tab 03/17/20 00:38 04/04/20 05:30 Senokot S PO 2 tab BIDPRN PRN Administration Constipation Sodium Chloride 10 ml 03/28/20 09:00 04/17/20 07:25 Flush - Normal Saline IVF 10 ml Q12HR NEHAL Administration Zinc Sulfate 220 mg 03/27/20 09:00 04/17/20 07:24 Zinc Sulfate PO 220 mg DAILY NEHAL Administration - Exam General Appearance: NAD, awake alert General - other findings: Patient will communicate with speech. Neck - other findings: Trach Heart: RRR, no murmur, no gallops, no rubs, normal peripheral pulses Respiratory: CTAB, no wheezes, no rales, no ronchi, normal chest expansion, no tachypnea, normal percussion Gastrointestinal: soft, non-tender, non-distended, normal bowel sounds, no palpable masses, no hepatomegaly, no splenomegaly, no bruit Extremities: no cyanosis, no clubbing, no edema Skin: normal turgor Musculoskeletal: normal tone Psychiatric: flat affect Hosp A/P (1) Acute respiratory failure with hypoxia Code(s): J96.01 - ACUTE RESPIRATORY FAILURE WITH HYPOXIA Status: Acute (2) Hypotension Status: Acute (3) Pneumonia due to COVID-19 virus Code(s): U07.1 - COVID-19; J12.89 - OTHER VIRAL PNEUMONIA Status: Acute (4) Hyperlipidemia Code(s): E78.5 - HYPERLIPIDEMIA, UNSPECIFIED Status: Chronic (5) Acute metabolic encephalopathy Code(s): G93.41 - METABOLIC ENCEPHALOPATHY Status: Acute (6) Severe muscle deconditioning Code(s): R29.898 - OTH SYMPTOMS AND SIGNS INVOLVING THE MUSCULOSKELETAL SYSTEM Status: Acute - Plan Acute hypoxic respiratory failure: On trach collar oxygen. Pulmonology following. COVID-19 pneumonia: Past acute interventions. Continues on steroids. Continue oxygen supplementation Acute metabolic encephalopathy: Unclear if this is due to underlying infection or hospital psychoses. She is on Seroquel presently. The dose has been increased. There is some concern that she is suffering some depression. Severe muscular deconditioning: Continue with therapy. Disposition: Patient has significant and profound deconditioning and has the new trach with trach collar oxygen. May need LTAC.
[2020-04-18] MEDS: Sodium Chloride 0.9% 1,000 ML IV SCH ×2 (04:23→21:13)
[2020-04-18] MEDS: Famotidine/PF 20 mg/2ml Vial SLOW IVP SCH ×2 (07:43→21:13)
[2020-04-18] MEDS: Enoxaparin Sodium 40 MG/0.4 ML SYRINGE SC SCH ×2 (07:43→21:13)
[2020-04-18] MEDS: Doxycycline 100 MG CAP PO SCH (07:44)
[2020-04-18] MEDS: Ascorbic Acid 500 mg Chewable Tablet PO SCH (07:44)
[2020-04-18] MEDS: Zinc Sulfate 220 MG CAP PO SCH (07:46)
[2020-04-18] MEDS: predniSONE 20 MG TAB PO SCH (07:46)
[2020-04-18] MEDS: Budesonide 0.5 MG/2 ML NEB INH SCH ×2 (08:00→19:19)
[2020-04-18] MEDS: Acetylcysteine 10% 100 MG/ML 30 ml Vial INH SCH ×2 (09:44→19:19)
--- NOTE | 2020-04-18 10:08 | PRG ---
DATE OF SERVICE: 04/18/2020 SUBJECTIVE: She is doing better. OBJECTIVE: VITAL SIGNS: Temperature 98, saturations are 96% on low-flow O2, blood pressure 130/87, pulse 118. CHEST: No wheezing. No crackles. CARDIAC: Normal S1 and S2. No gallops. ABDOMEN: No masses. LABORATORY DATA: lab and x-rays. ASSESSMENT: 1. Respiratory failure. 2. Theodore positive pneumonia. 3. Severe deconditioning. 4. Tracheostomy. 5. Percutaneous endoscopic gastrostomy. She was plugging trach frequently. I have started her on some Mucomyst, Pulmicort inhaler, still on doxycycline and steroids. If she has been stable in the next few days, she can probably be transferred out of the ICU. Job ID: [id number]
--- NOTE | 2020-04-18 13:37 | PDOC.HOSPP ---
- Subjective Encounter Date: 04/18/20 Subjective: Doing okay today. Discussed with the patient's nurse. She seems to be doing well with no particular complaints. Patient was little sleepy at the time my exam but denied any specific problems. - Objective Vital Signs & Weight: Vital Signs (12 hours) Temp Pulse Ox 04/18/20 12:00 97.0 F L 04/18/20 08:00 96 04/18/20 07:00 98.8 F 04/18/20 04:00 99.4 F Weight Admit Weight 155 lb 6.4 oz Weight 151 lb 0.266 oz Most Recent Monitor Data Heart Rate from ECG 96 NIBP 99/59 NIBP BP-Mean 72 Respiration from ECG 21 SpO2 97 I&O: 04/17/20 04/18/20 04/19/20 06:59 06:59 06:59 Intake Total 1936 1891 Output Total 2440 1200 130 Balance -504 691 -130 Result Diagrams: 04/17/20 02:49 04/17/20 02:49 Hospitalist ROS - Medication Medications: Active Medications Generic Name Dose Route Start Last Admin Trade Name Freq PRN Reason Stop Dose Admin Acetaminophen 650 mg 04/15/20 08:40 04/18/20 07:44 Tylenol PER TUBE 650 mg Q6H PRN Administration Fever or Pain Acetylcysteine 600 mg 04/17/20 09:00 04/18/20 09:44 Mucomyst 10% (Oral Or Inh) INH 600 mg BID NEHAL Administration Ascorbic Acid 1,000 mg 03/27/20 09:00 04/18/20 07:44 Vitamin C PO 1,000 mg DAILY NEHAL Administration Bisacodyl 10 mg 04/04/20 12:35 04/04/20 12:38 Dulcolax [place] 10 mg DAILYPRN PRN Administration Constipation Budesonide 0.5 mg 04/16/20 18:30 04/18/20 08:00 Pulmicort Neb Solution INH 0.5 mg BID-RT NEHAL Administration Enoxaparin Sodium 40 mg 04/07/20 21:00 04/18/20 07:43 Lovenox SC 40 mg 0900,2100 NEHAL Administration Famotidine 20 mg 04/08/20 09:00 04/18/20 07:43 Pepcid SLOW IVP 20 mg BID NEHAL Administration Guaifenesin/Dextromethorphan 15 ml 03/24/20 23:30 03/27/20 20:59 Diabetic Tussin Dm PO 15 ml Q4H PRN Administration Cough Sodium Chloride 1,000 mls @ 50 mls/hr 03/28/20 19:00 04/18/20 04:23 Normal Saline 0.9% IV 1,000 mls .Q20H NEHAL Administration Labetalol HCl 20 mg 04/15/20 08:40 04/17/20 10:32 Normodyne SLOW IVP 20 mg Q4H PRN Administration SBP > 180 and HR >/= 70 Loperamide HCl 2 mg 04/15/20 08:40 04/18/20 07:47 Imodium PER TUBE 2 mg PRN PRN Administration Diarrhea/Loose Stools Prednisone 20 mg 04/18/20 08:00 04/18/20 07:46 Prednisone PO 20 mg QAM-WM NEHAL Administration Quetiapine Fumarate 50 mg 04/17/20 09:40 04/18/20 07:45 Seroquel PO 50 mg DAILY NEHAL Administration Senna/Docusate Sodium 2 tab 03/17/20 00:38 04/04/20 05:30 Senokot S PO 2 tab BIDPRN PRN Administration Constipation Sodium Chloride 10 ml 03/28/20 09:00 04/18/20 07:47 Flush - Normal Saline IVF 10 ml Q12HR NEHAL Administration Zinc Sulfate 220 mg 03/27/20 09:00 04/18/20 07:46 Zinc Sulfate PO 220 mg DAILY NEHAL Administration - Exam General Appearance: NAD, awake alert Heart: RRR, no murmur, no gallops, no rubs, normal peripheral pulses Respiratory: CTAB, no wheezes, no rales, no ronchi, normal chest expansion, no tachypnea, normal percussion Gastrointestinal: soft, non-tender, non-distended, normal bowel sounds, no palpable masses, no hepatomegaly, no splenomegaly, no bruit Extremities: no cyanosis, no clubbing, no edema Skin: normal turgor Musculoskeletal: generalized weakness Psychiatric: somnolent Hosp A/P (1) Acute respiratory failure with hypoxia Code(s): J96.01 - ACUTE RESPIRATORY FAILURE WITH HYPOXIA Status: Acute (2) Hypotension Status: Acute (3) Pneumonia due to COVID-19 virus Code(s): U07.1 - COVID-19; J12.89 - OTHER VIRAL PNEUMONIA Status: Acute (4) Hyperlipidemia Code(s): E78.5 - HYPERLIPIDEMIA, UNSPECIFIED Status: Chronic (5) Acute metabolic encephalopathy Code(s): G93.41 - METABOLIC ENCEPHALOPATHY Status: Acute (6) Severe muscle deconditioning Code(s): R29.898 - [facility] SYMPTOMS AND SIGNS INVOLVING THE MUSCULOSKELETAL SYSTEM Status: Acute - Plan Acute hypoxic respiratory failure: On trach collar oxygen. Pulmonology following. COVID-19 pneumonia: Past acute interventions. Continues on steroids. Continue oxygen supplementation Acute metabolic encephalopathy: Unclear if this is due to underlying infection or hospital psychoses. She is on Seroquel presently. The dose has been increased. There is some concern that she is suffering some depression. Overall seems to be doing a little better. Severe muscular deconditioning: Continue with therapy. Dysphagia: Continue PEG feedings per dietitian recommendations. Disposition: Patient has significant and profound deconditioning and has the new trach with trach collar oxygen. May need LTACH. Case management has received permission from the family to pursue this near [place] where they live. Process is underway.
[2020-04-19] MEDS: Acetaminophen 650 MG/20.3 ML UDCUP PER TUBE PRN (00:38)
[2020-04-19] MEDS: Budesonide 0.5 MG/2 ML NEB INH SCH ×2 (07:40→19:30)
[2020-04-19] MEDS: Acetylcysteine 10% 100 MG/ML 30 ml Vial INH SCH ×2 (08:02→19:32)
[2020-04-19] MEDS: predniSONE 20 MG TAB PO SCH (09:00)
[2020-04-19] MEDS: Enoxaparin Sodium 40 MG/0.4 ML SYRINGE SC SCH ×2 (09:00→19:54)
[2020-04-19] MEDS: Zinc Sulfate 220 MG CAP PO SCH (09:00)
[2020-04-19] MEDS: Famotidine/PF 20 mg/2ml Vial SLOW IVP SCH ×2 (09:00→19:54)
[2020-04-19] MEDS: Ascorbic Acid 500 mg Chewable Tablet PO SCH (09:00)
--- NOTE | 2020-04-19 09:06 | PRG ---
DATE OF SERVICE: 04/19/2020 SUBJECTIVE: The patient is comfortable on a trach collar. OBJECTIVE: VITAL SIGNS: On exam, temperature 99.5, pulse 113, blood pressure 153/100, sat 98%. HEENT: Unremarkable. NECK: Trach in good position with some secretions present. LUNGS: Clear. CARDIAC: S1, S2. Regular. ABDOMEN: Soft. EXTREMITIES: No edema. LABORATORY DATA: No labs were obtained today. ASSESSMENT: 1. COVID-19 pneumonia. 2. Status post tracheostomy and percutaneous endoscopic gastrostomy tube placement. 3. Mucus plugging. PLAN: 1. I will go ahead and stop the antihistamine as that may be worsening the plugging. 2. Stop the IV fluids. 3. Continue anticoagulation with enoxaparin and GI prophylaxis with Pepcid. 4. She is on low-dose steroids. 5. She is on Mucomyst and steroids for her secretions. 6. Should be able to transfer to [facility] soon. Job ID: [id number]
--- NOTE | 2020-04-19 15:49 | PDOC.HOSPP ---
- Subjective Encounter Date: 04/19/20 Encounter Time: 10:35 Subjective: pt not responding much, sleeping soundly, known her from last shifts. - Objective Vital Signs & Weight: Vital Signs (12 hours) Temp Pulse Ox 04/19/20 12:00 99.7 F H 04/19/20 08:00 98.2 F 100 04/19/20 04:00 99.5 F Weight Admit Weight 155 lb 6.4 oz Weight 134 lb 11.239 oz Most Recent Monitor Data Heart Rate from ECG 122 NIBP 129/84 NIBP BP-Mean 99 Respiration from ECG 40 SpO2 100 I&O: 04/18/20 04/19/20 04/20/20 06:59 06:59 06:59 Intake Total 1891 2147 Output Total 1200 945 320 Balance 691 1202 -320 Result Diagrams: 04/17/20 02:49 04/17/20 02:49 Hospitalist ROS - Medication Medications: Active Medications Generic Name Dose Route Start Last Admin Trade Name Freq PRN Reason Stop Dose Admin Acetaminophen 650 mg 04/19/20 00:45 04/19/20 00:38 Tylenol Elixir PER TUBE 650 mg Q6H PRN Administration Fever or Pain Acetylcysteine 600 mg 04/17/20 09:00 04/19/20 08:02 Mucomyst 10% (Oral Or Inh) INH 600 mg BID NEHAL Administration Ascorbic Acid 1,000 mg 03/27/20 09:00 04/19/20 09:00 Vitamin C PO 1,000 mg DAILY NEHAL Administration Bisacodyl 10 mg 04/04/20 12:35 04/04/20 12:38 Dulcolax [place] 10 mg DAILYPRN PRN Administration Constipation Budesonide 0.5 mg 04/16/20 18:30 04/19/20 07:40 Pulmicort Neb Solution INH 0.5 mg BID-RT NEHAL Administration Enoxaparin Sodium 40 mg 04/07/20 21:00 04/19/20 09:00 Lovenox SC 40 mg 09,2099 NEHAL Administration Famotidine 20 mg 04/08/20 09:00 04/19/20 09:00 Pepcid SLOW IVP 20 mg BID NEHAL Administration Guaifenesin/Dextromethorphan 15 ml 03/24/20 23:30 03/27/20 20:59 Diabetic Tussin Dm PO 15 ml Q4H PRN Administration Cough Labetalol HCl 20 mg 04/15/20 08:40 04/17/20 10:32 Normodyne SLOW IVP 20 mg Q4H PRN Administration SBP > 180 and HR >/= 70 Loperamide HCl 2 mg 04/15/20 08:40 04/18/20 07:47 Imodium PER TUBE 2 mg PRN PRN Administration Diarrhea/Loose Stools Ondansetron HCl 4 mg 04/15/20 08:40 04/18/20 21:16 Zofran IVP 4 mg Q6H PRN Administration Nausea/Vomiting Prednisone 20 mg 04/18/20 08:00 04/19/20 09:00 Prednisone PO 20 mg QAM-WM NEHAL Administration Quetiapine Fumarate 50 mg 04/17/20 09:40 04/19/20 09:00 Seroquel PO 50 mg DAILY NEHAL Administration Senna/Docusate Sodium 2 tab 03/17/20 00:38 04/04/20 05:30 Senokot S PO 2 tab BIDPRN PRN Administration Constipation Sodium Chloride 10 ml 03/28/20 09:00 04/19/20 09:01 Flush - Normal Saline IVF 10 ml Q12HR NEHAL Administration Zinc Sulfate 220 mg 03/27/20 09:00 04/19/20 09:00 Zinc Sulfate PO 220 mg DAILY NEHAL Administration - Exam General Appearance: ill appearing Eye: PERRL ENT: normocephalic atraumatic Heart: RRR Respiratory: CTAB, normal chest expansion Gastrointestinal: soft, normal bowel sounds Psychiatric: not oriented Hosp A/P - Plan (1) Acute respiratory failure with hypoxia Code(s): J96.01 - ACUTE RESPIRATORY FAILURE WITH HYPOXIA Status: Acute (2) Hypotension Status: Acute (3) Pneumonia due to COVID-19 virus Code(s): U07.1 - COVID-19; J12.89 - OTHER VIRAL PNEUMONIA Status: Acute (4) Hyperlipidemia Code(s): E78.5 - HYPERLIPIDEMIA, UNSPECIFIED Status: Chronic (5) Acute metabolic encephalopathy Code(s): G93.41 - METABOLIC ENCEPHALOPATHY Status: Acute (6) Severe muscle deconditioning Code(s): R29.898 - [facility] SYMPTOMS AND SIGNS INVOLVING THE MUSCULOSKELETAL SYSTEM Status: Acute - Plan Acute hypoxic respiratory failure: -s/p trach COVID-19 pneumonia: -Continues on steroids. -oxygen supplementation Acute metabolic encephalopathy: -on Seroquel presently. The dose has been increased. Severe muscular deconditioning: Continue with therapy. Dysphagia: Continue PEG feedings per dietitian recommendations. Disposition: Patient may need LTACH. - family wishes to pursue this near [place] where they live. Full code.
[2020-04-20] MEDS: Acetaminophen 650 MG/20.3 ML UDCUP PER TUBE PRN (00:22)
[2020-04-20 02:07] LABS: Hemoglobin 11.1 g/dL (12.0-16.0); Mean Corpuscular HGB CONC 31.6 g/dL (32.0-36.0); Mean Corpuscular Hemoglobin 27.9 pg (27.0-31.0); Mean Corpuscular Volume 88.4 fL (78.0-98.0); Mean Platelet Volume 9.3 fL (7.4-10.4); Platelet Count 221 thou/uL (130-400); RBC Distribution Width 17.6 % (11.5-14.5); Red Blood Cell (RBC) Count 3.96 mill/uL (4.20-5.40); White Blood Cell (WBC) Count 17.8 thou/uL (4.8-10.8)
[2020-04-20 02:19] LABS: Lactic Acid 1.6 mmol/L (0.5-2.2)
[2020-04-20 02:22] LABS: MDiff Complete? YES
[2020-04-20 02:23] LABS: ALT (SGPT) 21 U/L (8-55); AST (SGOT) 13 U/L (5-34); Albumin 3.5 g/dL (3.5-5.0); Alkaline Phosphatase 77 U/L (40-110); Anion Gap 11 mmol/L (10-20); BUN (Urea Nitrogen) 9 mg/dL (9.8-20.1); Band 17 % (5-11); Bilirubin, Total 0.3 mg/dL (0.2-1.2); Calc. Creatinine Clearance 121 mL/min (70-130); Calcium 8.8 mg/dL (7.8-10.44); Carbon Dioxide 27 mmol/L (22-29); Chloride 108 mmol/L (98-107); Estimated GFR-MDRD Greater than 90; Globulin 2.6 g/dL (2.4-3.5); Glucose 134 mg/dL (70-105); Lymphocytes 5 % (21-51); Monocytes 8 % (0-10); Neutrophil 70 % (42-75); Platelet Morphology Comment Appears Adequate; Potassium 3.5 mmol/L (3.5-5.1); Protein, Total 6.1 g/dL (6.0-8.3); Sodium 142 mmol/L (136-145)
[2020-04-20 02:47] LABS: Bacteria/HPF None Seen HPF (None Seen); Bilirubin Negative (Negative); Blood, Urine Trace (Negative); Calcium Oxalate Crystals Rare HPF (None Seen); Clarity Clear (Clear); Glucose, Urine (Dipstick) Normal (Negative); Ketone, Urine Negative (Negative); Leukocyte 500 Leu/uL (Negative); Nitrite Negative (Negative); Protein, Urine (Dipstick) Negative (Neg-Trace); Specific Gravity, Urine 1.014 (1.002-1.036); Squamous Epithelial 0-3 HPF (0-3); Urobilinogen Normal mg/dL (Less than 2); WBC/HPF Greater than 50 HPF (0-3); Yeast-Budding 1+ HPF (None Seen); pH, Urine 6.5 (5.0-9.0)
[2020-04-20 03:05] LABS: Urine Culture Reflex Yes Yes
[2020-04-20] MEDS: Acetylcysteine 10% 100 MG/ML 30 ml Vial INH SCH ×2 (06:49→20:19)
[2020-04-20] MEDS: Budesonide 0.5 MG/2 ML NEB INH SCH ×2 (06:49→20:19)
[2020-04-20] MEDS: Ascorbic Acid 500 mg Chewable Tablet PO SCH (09:04)
[2020-04-20] MEDS: predniSONE 20 MG TAB PO SCH (09:05)
[2020-04-20] MEDS: Enoxaparin Sodium 40 MG/0.4 ML SYRINGE SC SCH ×2 (09:06→19:59)
[2020-04-20] MEDS: Zinc Sulfate 220 MG CAP PO SCH (09:09)
[2020-04-20] MEDS: Famotidine/PF 20 mg/2ml Vial SLOW IVP SCH ×2 (09:09→19:58)
--- NOTE | 2020-04-20 09:30 | PRG ---
DATE OF SERVICE: 04/20/2020 SUBJECTIVE: The patient is comfortable on trach collar, very interactive, stable to vocalize trach. OBJECTIVE: VITAL SIGNS: Temperature is 99.6, pulse 122, blood pressure 130/95, O2 saturation 96%. HEENT: Unremarkable. Trach in good position. Minimal secretions. CARDIAC: S1, S2. Regular. LUNGS: Clear. ABDOMEN: Soft. EXTREMITIES: No edema. LABORATORY DATA: White blood cell count 17.8, hematocrit 35, platelet count 221. Sodium 142, potassium 3.5, chloride 108, CO2 of 27, BUN 9, creatinine 0.5, glucose 134. Urinalysis showed lots of white cells. ASSESSMENT: 1. COVID-19 pneumonia. 2. Status post tracheostomy with PEG tube placement. 3. Mucus plugging. 4. Perhaps some form of urinary tract infection. PLAN: I would check a urine culture if it has not been done and treat appropriately for what organism grows out. I would not start empiric antibiotics until we know the results of that. Job ID: [id number]
--- NOTE | 2020-04-20 12:03 | PDOC.HOSPP ---
- Subjective Encounter Date: 04/20/20 Subjective: plan for pt to be moved to [facility]. pt not seen to minimize the COVID exposure but following peripherally. pt ahd temp y'day, today afebrile, Urine claudette sent on adn wait for the results before starting on abx. high wbcs at 17K - Objective Vital Signs & Weight: Vital Signs (12 hours) Temp Pulse Resp Pulse Ox 04/20/20 08:00 98.3 F 98 04/20/20 06:51 100 04/20/20 06:49 125 H 39 H 100 04/20/20 04:00 99.6 F Weight Admit Weight 155 lb 6.4 oz Weight 132 lb 15.02 oz Most Recent Monitor Data Heart Rate from ECG 120 NIBP 129/88 NIBP BP-Mean 101 Respiration from ECG 34 SpO2 99 I&O: 04/19/20 04/20/20 04/21/20 06:59 06:59 06:59 Intake Total 2147 1552 100 Output Total 945 1510 130 Balance 1202 42 -30 Result Diagrams: 04/20/20 01:45 04/20/20 01:45 Hospitalist ROS - Medication Medications: Active Medications Generic Name Dose Route Start Last Admin Trade Name Freq PRN Reason Stop Dose Admin Acetaminophen 650 mg 04/19/20 00:45 04/20/20 00:22 Tylenol Elixir PER TUBE 650 mg Q6H PRN Administration Fever or Pain Acetylcysteine 600 mg 04/17/20 09:00 04/20/20 06:49 Mucomyst 10% (Oral Or Inh) INH 600 mg BID NEHAL Administration Ascorbic Acid 1,000 mg 03/27/20 09:00 04/20/20 09:04 Vitamin C PO 1,000 mg DAILY NEHAL Administration Bisacodyl 10 mg 04/04/20 12:35 04/04/20 12:38 Dulcolax [place] 10 mg DAILYPRN PRN Administration Constipation Budesonide 0.5 mg 04/16/20 18:30 04/20/20 06:49 Pulmicort Neb Solution INH 0.5 mg BID-RT NEHAL Administration Enoxaparin Sodium 40 mg 04/07/20 21:00 04/20/20 09:06 Lovenox SC 40 mg 0900,2100 NEHAL Administration Famotidine 20 mg 04/08/20 09:00 04/20/20 09:09 Pepcid SLOW IVP 20 mg BID NEHAL Administration Guaifenesin/Dextromethorphan 15 ml 03/24/20 23:30 03/27/20 20:59 Diabetic Tussin Dm PO 15 ml Q4H PRN Administration Cough Labetalol HCl 20 mg 04/15/20 08:40 04/17/20 10:32 Normodyne SLOW IVP 20 mg Q4H PRN Administration SBP > 180 and HR >/= 70 Loperamide HCl 2 mg 04/15/20 08:40 04/18/20 07:47 Imodium PER TUBE 2 mg PRN PRN Administration Diarrhea/Loose Stools Ondansetron HCl 4 mg 04/15/20 08:40 04/18/20 21:16 Zofran IVP 4 mg Q6H PRN Administration Nausea/Vomiting Prednisone 20 mg 04/18/20 08:00 04/20/20 09:05 Prednisone PO 20 mg QAM-WM NEHAL Administration Quetiapine Fumarate 50 mg 04/17/20 09:40 04/20/20 09:05 Seroquel PO 50 mg DAILY NEHAL Administration Senna/Docusate Sodium 2 tab 03/17/20 00:38 04/04/20 05:30 Senokot S PO 2 tab BIDPRN PRN Administration Constipation Sodium Chloride 10 ml 03/28/20 09:00 04/20/20 09:10 Flush - Normal Saline IVF 10 ml Q12HR NEHAL Administration Zinc Sulfate 220 mg 03/27/20 09:00 04/20/20 09:09 Zinc Sulfate PO 220 mg DAILY NEHAL Administration Hosp A/P - Plan (1) Acute respiratory failure with hypoxia Code(s): J96.01 - ACUTE RESPIRATORY FAILURE WITH HYPOXIA Status: Acute (2) Hypotension Status: Acute (3) Pneumonia due to COVID-19 virus Code(s): U07.1 - COVID-19; J12.89 - OTHER VIRAL PNEUMONIA Status: Acute (4) Hyperlipidemia Code(s): E78.5 - HYPERLIPIDEMIA, UNSPECIFIED Status: Chronic (5) Acute metabolic encephalopathy Code(s): G93.41 - METABOLIC ENCEPHALOPATHY Status: Acute (6) Severe muscle deconditioning Code(s): R29.898 - [facility] SYMPTOMS AND SIGNS INVOLVING THE MUSCULOSKELETAL SYSTEM Status: Acute - Plan Acute hypoxic respiratory failure: -s/p trach COVID-19 pneumonia: -Continues on steroids. -oxygen supplementation Acute metabolic encephalopathy: -on Seroquel presently. The dose has been increased. Severe muscular deconditioning: Continue with therapy. Dysphagia: Continue PEG feedings per dietitian recommendations. pt not seen to minimize the COVID exposure but following peripherally. pt had temp y'day/, today afebrile, UTI Leukocytosis - Urine claudette sent on adn wait for the results before starting on abx. high wbcs at 17K Disposition: Patient may need LTACH. - family wishes to pursue this near [place] where they live. Full code.
[2020-04-21] MEDS: Acetaminophen 650 MG/20.3 ML UDCUP PER TUBE PRN (04:38)
[2020-04-21] MEDS: Enoxaparin Sodium 40 MG/0.4 ML SYRINGE SC SCH ×2 (07:59→20:49)
[2020-04-21] MEDS: Ascorbic Acid 500 mg Chewable Tablet PO SCH (07:59)
[2020-04-21] MEDS: Famotidine/PF 20 mg/2ml Vial SLOW IVP SCH ×2 (07:59→20:49)
[2020-04-21] MEDS: predniSONE 20 MG TAB PO SCH (07:59)
[2020-04-21] MEDS: Zinc Sulfate 220 MG CAP PO SCH (08:00)
[2020-04-21] MEDS: Budesonide 0.5 MG/2 ML NEB INH SCH ×2 (08:25→22:22)
[2020-04-21] MEDS: Acetylcysteine 10% 100 MG/ML 30 ml Vial INH SCH ×2 (08:27→22:22)
--- NOTE | 2020-04-21 09:55 | PRG ---
DATE OF SERVICE: 04/21/2020 SUBJECTIVE: This morning, she is awake, responsive, on 35%, sats 99%, on trach collar. OBJECTIVE: VITAL SIGNS: Stable. Pulse 121, respiratory rate 30, blood pressure 118/80, temperature 99. CHEST: Bilateral crackles. No wheezing. CARDIAC: Normal S1 and S2. No gallops. ABDOMEN: No masses. IMPRESSION: Respiratory failure, packer positive pneumonia, prolonged intubation, trach, PEG, severe deconditioning. PLAN: Continue aggressive PT, supportive care. We will follow. Job ID: [id number]
[2020-04-21 10:40] VITALS: BMI 24.9
--- NOTE | 2020-04-21 14:29 | PDOC.HOSPP ---
- Subjective Encounter Date: 04/21/20 Encounter Time: 10:10 Subjective: Patient is responding for verbal stimulation and she is on trach collar Normotensive and her oxygen sats good at 100% with a 35% FiO2. - Objective Vital Signs & Weight: Vital Signs (12 hours) Temp Pulse Resp Pulse Ox 04/21/20 08:28 99 04/21/20 08:25 121 H 35 H 99 04/21/20 08:00 96 04/21/20 04:00 99.3 F Weight Admit Weight 155 lb 6.4 oz Weight 136 lb 6.4 oz Most Recent Monitor Data Heart Rate from ECG 124 NIBP 110/78 NIBP BP-Mean 88 Respiration from ECG 33 SpO2 100 I&O: 04/20/20 04/21/20 04/22/20 06:59 06:59 06:59 Intake Total 1552 1140 120 Output Total 1510 1005 Balance 42 135 120 Result Diagrams: 04/20/20 01:45 04/20/20 01:45 Hospitalist ROS - Medication Medications: Active Medications Generic Name Dose Route Start Last Admin Trade Name Freq PRN Reason Stop Dose Admin Acetaminophen 650 mg 04/19/20 00:45 04/21/20 04:38 Tylenol Elixir PER TUBE 650 mg Q6H PRN Administration Fever or Pain Acetylcysteine 600 mg 04/17/20 09:00 04/21/20 08:27 Mucomyst 10% (Oral Or Inh) INH 600 mg BID NEHAL Administration Ascorbic Acid 1,000 mg 03/27/20 09:00 04/21/20 07:59 Vitamin C PO 1,000 mg DAILY NEHAL Administration Bisacodyl 10 mg 04/04/20 12:35 04/04/20 12:38 Dulcolax [place] 10 mg DAILYPRN PRN Administration Constipation Budesonide 0.5 mg 04/16/20 18:30 04/21/20 08:25 Pulmicort Neb Solution INH 0.5 mg BID-RT NEHAL Administration Enoxaparin Sodium 40 mg 04/07/20 21:00 04/21/20 07:59 Lovenox SC 40 mg 0900,2100 NEHAL Administration Famotidine 20 mg 04/08/20 09:00 04/21/20 07:59 Pepcid SLOW IVP 20 mg BID NEHAL Administration Guaifenesin/Dextromethorphan 15 ml 03/24/20 23:30 03/27/20 20:59 Diabetic Tussin Dm PO 15 ml Q4H PRN Administration Cough Labetalol HCl 20 mg 04/15/20 08:40 04/17/20 10:32 Normodyne SLOW IVP 20 mg Q4H PRN Administration SBP > 180 and HR >/= 70 Loperamide HCl 2 mg 04/15/20 08:40 04/18/20 07:47 Imodium PER TUBE 2 mg PRN PRN Administration Diarrhea/Loose Stools Ondansetron HCl 4 mg 04/15/20 08:40 04/18/20 21:16 Zofran IVP 4 mg Q6H PRN Administration Nausea/Vomiting Prednisone 20 mg 04/18/20 08:00 04/21/20 07:59 Prednisone PO 20 mg QAM-WM NEHAL Administration Quetiapine Fumarate 50 mg 04/17/20 09:40 04/21/20 07:59 Seroquel PO 50 mg DAILY NEHAL Administration Senna/Docusate Sodium 2 tab 03/17/20 00:38 04/04/20 05:30 Senokot S PO 2 tab BIDPRN PRN Administration Constipation Sodium Chloride 10 ml 03/28/20 09:00 04/21/20 08:00 Flush - Normal Saline IVF 10 ml Q12HR NEHAL Administration Zinc Sulfate 220 mg 03/27/20 09:00 04/21/20 08:00 Zinc Sulfate PO 220 mg DAILY NEHAL Administration - Exam General Appearance: awake alert, ill appearing Eye: PERRL ENT: normocephalic atraumatic ENT - other findings: Trach collar Neck: supple Neurological: no new deficit Psychiatric: oriented to person Hosp A/P - Plan (1) Acute respiratory failure with hypoxia Code(s): J96.01 - ACUTE RESPIRATORY FAILURE WITH HYPOXIA Status: Acute (2) Hypotension Status: Acute (3) Pneumonia due to COVID-19 virus Code(s): U07.1 - COVID-19; J12.89 - OTHER VIRAL PNEUMONIA Status: Acute (4) Hyperlipidemia Code(s): E78.5 - HYPERLIPIDEMIA, UNSPECIFIED Status: Chronic (5) Acute metabolic encephalopathy Code(s): G93.41 - METABOLIC ENCEPHALOPATHY Status: Acute (6) Severe muscle deconditioning Code(s): R29.898 - OT SYMPTOMS AND SIGNS INVOLVING THE MUSCULOSKELETAL SYSTEM Status: Acute - Plan Acute hypoxic respiratory failure: -s/p trach COVID-19 pneumonia: -Continues on steroids. -oxygen supplementation Acute metabolic encephalopathy: -on Seroquel presently. The dose has been increased. Severe muscular deconditioning: Continue with therapy. Dysphagia: Continue PEG feedings per dietitian recommendations. pt not seen to minimize the COVID exposure but following peripherally. pt had temp y'day/, today afebrile, UTI Leukocytosis - Urine claudette sent on adn wait for the results before starting on abx. high wbcs at 17K Urine culture grew Anna albicans 10,000-25,001 really and it does not require any antifungal unless this infection is bloodstream. Disposition: Patient may need LTACH. - family wishes to pursue this near [place] where they live. [facility] CW above mgmt urine claudette - anna Full code.
[2020-04-22 06:03] LABS: #Basophils 0.1 thou/uL (0.0-0.2); #Eosinphils 0.5 thou/uL (0.0-0.7); #Monocytes 0.9 thou/uL (0.11-0.59); #Neutrophils 8.4 thou/uL (1.40-6.50); %Basophils 0.4 % (0.0-1.0); %Eosinophils 4.5 % (0.0-10.0); %Lymphocytes 16.8 % (21.0-51.0); %Monocytes 7.5 % (0.0-10.0); %Neutrophils 70.8 % (42.0-75.0); Hemoglobin 10.7 g/dL (12.0-16.0); Mean Corpuscular HGB CONC 30.9 g/dL (32.0-36.0); Mean Corpuscular Hemoglobin 27.4 pg (27.0-31.0); Mean Corpuscular Volume 88.6 fL (78.0-98.0); Mean Platelet Volume 9.3 fL (7.4-10.4); Platelet Count 231 thou/uL (130-400); RBC Distribution Width 17.5 % (11.5-14.5); White Blood Cell (WBC) Count 11.8 thou/uL (4.8-10.8)
[2020-04-22 06:17] LABS: Anion Gap 10 mmol/L (10-20); BUN (Urea Nitrogen) 14 mg/dL (9.8-20.1); Calc. Creatinine Clearance 127 mL/min (70-130); Calcium 8.7 mg/dL (7.8-10.44); Carbon Dioxide 29 mmol/L (22-29); Chloride 104 mmol/L (98-107); Estimated GFR-MDRD Greater than 90; Glucose 119 mg/dL (70-105); Potassium 4.2 mmol/L (3.5-5.1); Sodium 139 mmol/L (136-145)
[2020-04-22] MEDS: Budesonide 0.5 MG/2 ML NEB INH SCH ×2 (07:46→18:44)
[2020-04-22] MEDS: predniSONE 20 MG TAB PO SCH (09:34)
[2020-04-22] MEDS: Zinc Sulfate 220 MG CAP PO SCH (09:34)
[2020-04-22] MEDS: Famotidine/PF 20 mg/2ml Vial SLOW IVP SCH ×2 (09:34→19:57)
[2020-04-22] MEDS: Ascorbic Acid 500 mg Chewable Tablet PO SCH (09:34)
[2020-04-22] MEDS: Enoxaparin Sodium 40 MG/0.4 ML SYRINGE SC SCH ×2 (09:34→19:56)
[2020-04-22] MEDS: Acetylcysteine 10% 100 MG/ML 30 ml Vial INH SCH ×2 (11:00→18:45)
--- NOTE | 2020-04-22 11:36 | PRG ---
DATE OF SERVICE: 04/22/2020 SUBJECTIVE: A 49-year-old female who is on trach collar on 40%, sats 96%. OBJECTIVE: VITAL SIGNS: Blood pressure 110/78, respiratory rate 22, and pulse 80. GENERAL: She is awake, responsive. She is weak, but she is coughing. CHEST: Decreased breath sounds. Rhonchi. CARDIAC: Normal S1, S2. No gallops. ABDOMEN: No masses. LABORATORY DATA: White count 11,000. Lytes are normal. ASSESSMENT: 1. Coronavirus positive pneumonia, respiratory failure, acute respiratory distress syndrome, prolonged intubation, status post trach and PEG. 2. Encephalopathy, improved. PLAN: Continue PT, supportive care. Hopefully, she will be transferred to LTAC in next several days. Job ID: [id number]
--- NOTE | 2020-04-22 12:24 | PDOC.HOSPP ---
- Subjective Encounter Date: 04/22/20 Encounter Time: 10:20 Subjective: She is clinically stable no fever but mild white count of 11.8. . Electrolytes are better including sodium of 139 and potassium 4.2 and creatinine is 0.51. Her blood glucose is reasonable at 119. Patient will be transferred to LTAC. I talked to the daughter Layla [phone] and I answered all her questions. specifically about PEG tube usage and the duration of it. And the need for repeat COVID test. Patient has been tested at 36 days ago first test being positive second test on 06 April still positive. She is clinically better and improving she does not require further testing unless the facility feels otherwise. - Objective Vital Signs & Weight: Vital Signs (12 hours) Temp Pulse Ox 04/22/20 08:00 98.2 F 96 04/22/20 07:46 99 Weight Admit Weight 155 lb 6.4 oz Weight 136 lb Most Recent Monitor Data Heart Rate from ECG 135 NIBP 96/70 NIBP BP-Mean 78 Respiration from ECG 31 SpO2 99 I&O: 04/21/20 04/22/20 04/23/20 06:59 06:59 06:59 Intake Total 1140 1220 60 Output Total 1005 525 Balance 135 695 60 Result Diagrams: 04/22/20 05:52 04/22/20 03:30 Hospitalist ROS - Medication Medications: Active Medications Generic Name Dose Route Start Last Admin Trade Name Freq PRN Reason Stop Dose Admin Acetaminophen 650 mg 04/19/20 00:45 04/21/20 04:38 Tylenol Elixir PER TUBE 650 mg Q6H PRN Administration Fever or Pain Acetylcysteine 600 mg 04/17/20 09:00 04/22/20 11:00 Mucomyst 10% (Oral Or Inh) INH 600 mg BID NEHAL Administration Ascorbic Acid 1,000 mg 03/27/20 09:00 04/22/20 09:34 Vitamin C PO 1,000 mg DAILY NEHAL Administration Bisacodyl 10 mg 04/04/20 12:35 04/04/20 12:38 Dulcolax [place] 10 mg DAILYPRN PRN Administration Constipation Budesonide 0.5 mg 04/16/20 18:30 04/22/20 07:46 Pulmicort Neb Solution INH 0.5 mg BID-RT NEHAL Administration Enoxaparin Sodium 40 mg 04/07/20 21:00 04/22/20 09:34 Lovenox SC 40 mg 0900,2100 NEHAL Administration Famotidine 20 mg 04/08/20 09:00 04/22/20 09:34 Pepcid SLOW IVP 20 mg BID NEHAL Administration Guaifenesin/Dextromethorphan 15 ml 03/24/20 23:30 03/27/20 20:59 Diabetic Tussin Dm PO 15 ml Q4H PRN Administration Cough Labetalol HCl 20 mg 04/15/20 08:40 04/17/20 10:32 Normodyne SLOW IVP 20 mg Q4H PRN Administration SBP > 180 and HR >/= 70 Loperamide HCl 2 mg 04/15/20 08:40 04/18/20 07:47 Imodium PER TUBE 2 mg PRN PRN Administration Diarrhea/Loose Stools Ondansetron HCl 4 mg 04/15/20 08:40 04/18/20 21:16 Zofran IVP 4 mg Q6H PRN Administration Nausea/Vomiting Prednisone 20 mg 04/18/20 08:00 04/22/20 09:34 Prednisone PO 20 mg QAM-WM NEHAL Administration Quetiapine Fumarate 50 mg 04/17/20 09:40 04/22/20 09:34 Seroquel PO 50 mg DAILY NEHAL Administration Senna/Docusate Sodium 2 tab 03/17/20 00:38 04/04/20 05:30 Senokot S PO 2 tab BIDPRN PRN Administration Constipation Sodium Chloride 10 ml 03/28/20 09:00 04/22/20 09:35 Flush - Normal Saline IVF 10 ml Q12HR NEHAL Administration Zinc Sulfate 220 mg 03/27/20 09:00 04/22/20 09:34 Zinc Sulfate PO 220 mg DAILY NEHAL Administration - Exam General Appearance: awake alert General - other findings: trach/peg Eye: PERRL Neck: supple Psychiatric: oriented to person Hosp A/P - Plan (1) Acute respiratory failure with hypoxia Code(s): J96.01 - ACUTE RESPIRATORY FAILURE WITH HYPOXIA Status: Acute (2) Hypotension Status: Acute (3) Pneumonia due to COVID-19 virus Code(s): U07.1 - COVID-19; J12.89 - OTHER VIRAL PNEUMONIA Status: Acute (4) Hyperlipidemia Code(s): E78.5 - HYPERLIPIDEMIA, UNSPECIFIED Status: Chronic (5) Acute metabolic encephalopathy Code(s): G93.41 - METABOLIC ENCEPHALOPATHY Status: Acute (6) Severe muscle deconditioning Code(s): R29.898 - [facility] SYMPTOMS AND SIGNS INVOLVING THE MUSCULOSKELETAL SYSTEM Status: Acute - Plan Acute hypoxic respiratory failure: -s/p trach COVID-19 pneumonia: -Continues on steroids. -oxygen supplementation Acute metabolic encephalopathy: -on Seroquel presently. The dose has been increased. Severe muscular deconditioning: Continue with therapy. Dysphagia: Continue PEG feedings per dietitian recommendations. pt not seen to minimize the COVID exposure but following peripherally. pt had temp y'day/, today afebrile, UTI Leukocytosis - Urine claudette sent on adn wait for the results before starting on abx. high wbcs at 17K Urine culture grew She albicans 10,000-25,001 really and it does not require any antifungal unless this infection is bloodstream. Disposition: Patient may need LTACH. - family wishes to pursue this near [place] where they live. [facility]ERR[facility] TO [facility] CW above mgmt urine claudette - she Full code. Patient will be transferred to LTAC. I talked to the daughter Layla [phone] and I answered all her questions. specifically about PEG tube usage and the duration of it. And the need for repeat COVID test. Patient has been tested at 36 days ago first test being positive second test on 06 April still positive. She is clinically better and improving she does not require further testing unless the facility feels otherwise.
[2020-04-22] MEDS: Acetaminophen 650 MG/20.3 ML UDCUP PER TUBE PRN ×2 (15:52→23:50)
[2020-04-23] MEDS: Budesonide 0.5 MG/2 ML NEB INH SCH (08:27)
[2020-04-23] MEDS: Acetylcysteine 10% 100 MG/ML 30 ml Vial INH SCH (08:28)
[2020-04-23] MEDS: Ascorbic Acid 500 mg Chewable Tablet PO SCH (09:29)
[2020-04-23] MEDS: Enoxaparin Sodium 40 MG/0.4 ML SYRINGE SC SCH (09:29)
[2020-04-23] MEDS: Famotidine/PF 20 mg/2ml Vial SLOW IVP SCH (09:30)
[2020-04-23] MEDS: Zinc Sulfate 220 MG CAP PO SCH (09:30)
[2020-04-23] MEDS: predniSONE 20 MG TAB PO SCH (09:30)
--- NOTE | 2020-04-23 09:40 | PRG ---
DATE OF SERVICE: 04/23/2020 This morning, she is still tachy with a rate of 120. Respirations 36, saturations are 98% , blood pressure 100/71. CHEST: No wheezing. No crackles. CARDIAC: Normal S1, S2. No gallops. ABDOMEN: No masses. ASSESSMENT: Respiratory failure, prolonged intubation, trach and PEG tachycardia, anxiety. PLAN: Will continue low-dose prednisone, Seroquel, neb treatments, and Mucomyst. Family apparently wants to be transferred to the dialysis area, which is being arranged by Social Service. At this stage, we will not downsize the trach. Continue supportive care. Job ID: [id number]
--- NOTE | 2020-04-23 13:45 | PDOC.HOSPP ---
- Subjective Encounter Date: 04/23/20 Encounter Time: 11:20 Subjective: Patient is doing well she complains of little burning sensation. A urine culture grew only She albicans in the less than 25,000 colonies - Objective Vital Signs & Weight: Vital Signs (12 hours) Temp Pulse Resp Pulse Ox 04/23/20 08:27 120 H 36 H 98 04/23/20 08:00 99.1 F 97 04/23/20 04:00 97.7 F Weight Admit Weight 155 lb 6.4 oz Weight 133 lb Most Recent Monitor Data Heart Rate from ECG 138 NIBP 110/74 NIBP BP-Mean 86 Respiration from ECG 33 SpO2 96 I&O: 04/22/20 04/23/20 04/24/20 06:59 06:59 06:59 Intake Total 1220 2060 60 Output Total 525 1000 Balance 695 1060 60 Result Diagrams: 04/22/20 05:52 04/22/20 03:30 Hospitalist ROS - Medication Medications: Active Medications Generic Name Dose Route Start Last Admin Trade Name Freq PRN Reason Stop Dose Admin Acetaminophen 650 mg 04/19/20 00:45 04/22/20 23:50 Tylenol Elixir PER TUBE 650 mg Q6H PRN Administration Fever or Pain Acetylcysteine 600 mg 04/17/20 09:00 04/23/20 08:28 Mucomyst 10% (Oral Or Inh) INH 600 mg BID NEHAL Administration Ascorbic Acid 1,000 mg 03/27/20 09:00 04/23/20 09:29 Vitamin C PO 1,000 mg DAILY NEHAL Administration Bisacodyl 10 mg 04/04/20 12:35 04/04/20 12:38 Dulcolax [place] 10 mg DAILYPRN PRN Administration Constipation Budesonide 0.5 mg 04/16/20 18:30 04/23/20 08:27 Pulmicort Neb Solution INH 0.5 mg BID-RT NEHAL Administration Enoxaparin Sodium 40 mg 04/07/20 21:00 04/23/20 09:29 Lovenox SC 40 mg 09,2099 NEHAL Administration Famotidine 20 mg 04/08/20 09:00 04/23/20 09:30 Pepcid SLOW IVP 20 mg BID NEHAL Administration Guaifenesin/Dextromethorphan 15 ml 03/24/20 23:30 03/27/20 20:59 Diabetic Tussin Dm PO 15 ml Q4H PRN Administration Cough Labetalol HCl 20 mg 04/15/20 08:40 04/17/20 10:32 Normodyne SLOW IVP 20 mg Q4H PRN Administration SBP > 180 and HR >/= 70 Loperamide HCl 2 mg 04/15/20 08:40 04/18/20 07:47 Imodium PER TUBE 2 mg PRN PRN Administration Diarrhea/Loose Stools Ondansetron HCl 4 mg 04/15/20 08:40 04/18/20 21:16 Zofran IVP 4 mg Q6H PRN Administration Nausea/Vomiting Prednisone 20 mg 04/18/20 08:00 04/23/20 09:30 Prednisone PO 20 mg QAM-WM NEHAL Administration Quetiapine Fumarate 50 mg 04/17/20 09:40 04/23/20 09:30 Seroquel PO 50 mg DAILY NEHAL Administration Senna/Docusate Sodium 2 tab 03/17/20 00:38 04/04/20 05:30 Senokot S PO 2 tab BIDPRN PRN Administration Constipation Sodium Chloride 10 ml 03/28/20 09:00 04/23/20 09:30 Flush - Normal Saline IVF 10 ml Q12HR NEHAL Administration Zinc Sulfate 220 mg 03/27/20 09:00 04/23/20 09:30 Zinc Sulfate PO 220 mg DAILY NEHAL Administration - Exam General Appearance: awake alert Eye: PERRL ENT: normocephalic atraumatic Neck: supple Neck - other findings: Trach collar Neurological: no focal deficits Psychiatric: A&O x 3 Hosp A/P - Plan (1) Acute respiratory failure with hypoxia Code(s): J96.01 - ACUTE RESPIRATORY FAILURE WITH HYPOXIA Status: Acute (2) Hypotension Status: Acute (3) Pneumonia due to COVID-19 virus Code(s): U07.1 - COVID-19; J12.89 - OTHER VIRAL PNEUMONIA Status: Acute (4) Hyperlipidemia Code(s): E78.5 - HYPERLIPIDEMIA, UNSPECIFIED Status: Chronic (5) Acute metabolic encephalopathy Code(s): G93.41 - METABOLIC ENCEPHALOPATHY Status: Acute (6) Severe muscle deconditioning Code(s): R29.898 - OT SYMPTOMS AND SIGNS INVOLVING THE MUSCULOSKELETAL SYSTEM Status: Acute - Plan Acute hypoxic respiratory failure: -s/p trach COVID-19 pneumonia: -Continues on steroids. -oxygen supplementation Acute metabolic encephalopathy: -on Seroquel presently. The dose has been increased. Severe muscular deconditioning: Continue with therapy. Dysphagia: Continue PEG feedings per dietitian recommendations. pt not seen to minimize the COVID exposure but following peripherally. pt had temp y'day/, today afebrile, UTI Leukocytosis - Urine claudette sent on adn wait for the results before starting on abx. high wbcs at 17K Urine culture grew She albicans 10,000-25,001 really and it does not require any antifungal unless this infection is bloodstream. Disposition: Patient may need LTACH. - family wishes to pursue this near [place] where they live. [facility]ERR[facility] TO [facility] CW above mgmt urine claudette - she Full code. Patient will be transferred to LTAC. I talked to the daughter Layla [phone] and I answered all her questions. specifically about PEG tube usage and the duration of it. And the need for repeat COVID test. Patient has been tested at 36 days ago first test being positive second test on 06 April still positive. She is clinically better and improving she does not require further testing unless the facility feels otherwise. Based on critical care medicine continue with the trach collar size for now. empiric Keflex for her urinary symptoms. Urine culture grew She albicans less than 25,000 colonies not necessary at this point to add fluconazole. -Status post PEG tube and tolerating the tube feed. Family wants her to go closer to the [place] - closer to dialysis area. Pending placement.
[2020-04-23 16:09] VITALS: TEMP 99
[2020-04-23] MEDS ORDERED: Cephalexin 250 MG CAP PO SCH (21:00)
--- NOTE | 2020-04-24 07:37 | DIS ---
DATE OF ADMISSION: 03/17/2020 DATE OF DISCHARGE: 04/23/2020 DISCHARGE DIAGNOSES: 1. Acute respiratory failure with hypoxia. 2. Hypotension. 3. Coronavirus disease pneumonia. 4. Hyperlipidemia. 5. Acute metabolic encephalopathy. 6. Critical illness myopathy/severe muscle deconditioning. 7. Dysphagia status post percutaneous endoscopic gastrostomy tube placement. 8. Leukocytosis, status post tracheostomy. 9. Mucus plugging. 10. Prolonged intubation. DISCHARGE MEDICATIONS: 1. Keflex 500 mg b.i.d. for 5 days. 2. Protonix 40 mg daily. 3. Seroquel 50 mg daily. 4. Guaifenesin 200 mg per tube as needed every 4 hours. 5. Prednisone 20 mg daily for 5 more days. CONSULT: 1. Critical Care Management. 2. Palliative Care. PHYSICAL EXAMINATION: VITAL SIGNS: On the day of discharge, temperature is 99, blood pressure is 136/ 89. She is tachypneic with a rate of 34. She is on trach and PEG. Please see the progress note for today's details. HOSPITAL COURSE: This is a 49-year-old female admitted with acute respiratory failure secondary to hypoxia due to COVID pneumonia. She was intubated for acute respiratory failure. She had a prolonged stay with the vent and requiring trach and PEG placement. Following that she was started on tube feed and tolerating. The patient was complaining of burning sensation. We discontinued her [place]. Urine culture done on grew Anna albicans with less than 25,000 colonies. Does not require any antifungal. She also had mild leukocytosis with white count of 11.8, so covered with empiric antibiotic of Keflex. The patient' s family wants her to be closer to [place], planning to go for LTAC either late this evening or tomorrow. DISCHARGE INSTRUCTIONS: 1. Activity with supervision. 2. Nutrition via tube feed. 3. Follow up with the physician at the LTAC. TIME SPENT: Discharge time took over 35 minutes. Job ID: [id number] [facility]
== END 2020-04-23 16:00 | DRG 4 ==
LOC: ERS 22:40 → 2SW 03-17 00:44 → T4-B 03-21 10:16 → IMCU/EMU 03-23 02:58 → CCU 03-28 11:17 → IMCU/EMU 04-20 12:33
PROVIDERS: ADMIT Internal Medicine; ATTEND Internal Medicine
PROC: 8E0ZXY6 Isolation (ICD-10-PCS; 2020-03-16)
PROC: 30233L1 Transfusion of Nonautologous Fresh Plasma into Peripheral Vein, Percutaneous Approach (ICD-10-PCS; 2020-03-24)
PROC: 30233K1 Transfusion of Nonautologous Frozen Plasma into Peripheral Vein, Percutaneous Approach (ICD-10-PCS; 2020-03-24)
PROC: 5A1955Z Respiratory Ventilation, Greater than 96 Consecutive Hours (ICD-10-PCS; principal; 2020-03-28)
PROC: 0BH17EZ Insertion of Endotracheal Airway into Trachea, Via Natural or Artificial Opening (ICD-10-PCS; 2020-03-28)
PROC: 0B113F4 Bypass Trachea to Cutaneous with Tracheostomy Device, Percutaneous Approach (ICD-10-PCS; 2020-04-10)
PROC: 0DH63UZ Insertion of Feeding Device into Stomach, Percutaneous Approach (ICD-10-PCS; 2020-04-10)
DX: U07.1 COVID-19 (principal); J12.89 Other viral pneumonia; J80 Acute respiratory distress syndrome; J15.9 Unspecified bacterial pneumonia; G93.41 Metabolic encephalopathy; B37.49 Other urogenital candidiasis; Z51.5 Encounter for palliative care; R73.9 Hyperglycemia, unspecified; T38.0X5A Adverse effect of glucocorticoids and synthetic analogues, initial encounter; I95.9 Hypotension, unspecified; D64.9 Anemia, unspecified; R13.10 Dysphagia, unspecified; F41.9 Anxiety disorder, unspecified; E78.5 Hyperlipidemia, unspecified; E78.00 Pure hypercholesterolemia, unspecified; Z78.1 Physical restraint status; Z79.899 Other long term (current) drug therapy
CPT/HCPCS: 20030; 36415; 36416; 36430; 71045; 80048; 80053; 80076; 80202; 81001; 82550; 82728; 82805; 83605; 83880; 84145; 84484; 85014; 85018; 85025; 85049; 85379; 85610; 85730; 86140; 86850; 86900; 86901; 87040; 87086; 87635; 93005; 93010; 94002; 94003; 94640; 94660; 96361; 96365; 96367; 96375; C1751; J0456; J0690; J0696; J1100; J1650; J1940; J2060; J2270; J2405; J2543; J2704; J2920; J2930; J3010; J3262; J3370; J3490; J7030; J7050; J7512; J7608; J7620; J7626; J8540; P9047; S0028; U0003

== ENCOUNTER 2020-09-10 16:04 | Outpatient (CLI) | payer BC ==
--- NOTE | 2020-09-10 16:45 | MMO ---
Bilateral MAMMO Bilat Screen [facility]DI+GREG. CLINICAL HISTORY: Patient is 50 years old and is seen for screening. The patient has no family history of breast cancer. The patient has no personal history of cancer. VIEWS: The views performed were: bilateral craniocaudal with tomosynthesis and bilateral mediolateral oblique with tomosynthesis. FILMS COMPARED: The present examination has been compared to prior imaging studies performed at [facility] on 01/18/2011, 03/14/2012 and 05/07/2013, and at [facility] on 08/17/2017. This study has been interpreted with the assistance of computer-aided detection. MAMMOGRAM FINDINGS: There are scattered fibroglandular densities. There are stable benign appearing calcifications seen in both breasts. There are no suspicious masses, suspicious calcifications, or new areas of architectural distortion. IMPRESSION: THERE IS NO MAMMOGRAPHIC EVIDENCE OF MALIGNANCY. A ROUTINE FOLLOW-UP MAMMOGRAM IN 1 YEAR IS RECOMMENDED. THE RESULTS OF THIS EXAM WERE SENT TO THE PATIENT. ACR BI-RADS Category 2 - Benign finding MAMMOGRAPHY NOTE: 1. A negative mammogram report should not delay a biopsy if a dominant of clinically suspicious mass is present. 2. Approximately 10% to 15% of breast cancers are not detected by mammography. 3. Adenosis and dense breasts may obscure an underlying neoplasm. Reported by: DEVORAH CALI MD Electonically Signed: [id number]
== END 2020-09-10 16:05 | disposition home or self-care (01) ==
LOC: BICMAMMO 16:04
PROVIDERS: ATTEND Family Medicine
DX: Z12.31 Encounter for screening mammogram for malignant neoplasm of breast (principal)
CPT/HCPCS: 77063; 77067

== ENCOUNTER 2020-10-09 18:27 | Inpatient (IN) | payer BC, OTHER ==
[~2020-10-09 18:27] MED LIST: Iopamidol-370 76% 500 ML 1 ML ONE
[2020-10-09] MEDS ORDERED: Acetaminophen 500 MG TAB ONE (19:09)
[2020-10-09 19:10] LABS: #Monocytes 0.4 thou/uL (0.11-0.59); %Basophils 0.4 % (0.0-1.0); %Eosinophils 0.3 % (0.0-10.0); %Lymphocytes 11.6 % (21.0-51.0); %Neutrophils 82.8 % (42.0-75.0); Hemoglobin 11.9 g/dL (12.0-16.0); Mean Corpuscular HGB CONC 32.5 g/dL (32.0-36.0); Mean Corpuscular Hemoglobin 24.5 pg (27.0-31.0); Mean Corpuscular Volume 75.5 fL (78.0-98.0); Mean Platelet Volume 8.9 fL (7.4-10.4); Platelet Count 284 thou/uL (130-400); RBC Distribution Width 17.8 % (11.5-14.5); Red Blood Cell (RBC) Count 4.83 mill/uL (4.20-5.40); White Blood Cell (WBC) Count 8.4 thou/uL (4.8-10.8)
[2020-10-09 19:28] LABS: ALT (SGPT) 9 U/L (8-55); AST (SGOT) 12 U/L (5-34); Albumin 3.6 g/dL (3.5-5.0); Alkaline Phosphatase 76 U/L (40-110); Anion Gap 11 mmol/L (10-20); BUN (Urea Nitrogen) 10 mg/dL (9.8-20.1); Bilirubin, Total 0.4 mg/dL (0.2-1.2); Calc. Creatinine Clearance 0 mL/min (70-130); Calcium 8.3 mg/dL (7.8-10.44); Carbon Dioxide 26 mmol/L (22-29); Chloride 98 mmol/L (98-107); Globulin 2.8 g/dL (2.4-3.5); Glucose 106 mg/dL (70-105); Potassium 3.2 mmol/L (3.5-5.1); Protein, Total 6.4 g/dL (6.0-8.3); Sodium 132 mmol/L (136-145)
--- NOTE | 2020-10-09 19:29 | RAD ---
Portable frontal chest radiograph: 10/09/2020 COMPARISON: 06/17/2020 HISTORY: Headache with fever and chills, hypotension FINDINGS: There is no pneumothorax, lobar consolidation, or alveolar edema. There is mild linear interstitial density in the left perihilar region, less conspicuous than on the prior exam. There is mild elevation of the right hemidiaphragm. IMPRESSION: Mild left-sided perihilar interstitial prominence. No lobar consolidation or alveolar monica ma.
--- NOTE | 2020-10-09 20:18 | CT ---
CT angiogram chest: 10/09/2020 COMPARISON: None HISTORY: Fever TECHNIQUE: Axial CT imaging at 2.5 mm intervals through the chest with IV contrast using CT angiogram protocol. Coronal and sagittal 3-D reformatted imaging obtained. FINDINGS: No mediastinal, hilar, or axillary adenopathy. No pleural, pericardial, or mediastinal flui d. The imaged upper abdomen grossly unremarkable. Review of the pulmonary arterial vasculature demonstrates no evidence for acute pulmonary arterial em bolism. The lung parenchyma demonstrates scattered areas of emphysematous change with an upper lobe predomina nce. Peripheral linear increased interstitial density is noted with an upper lobe predominance, chronicity uncertain. In addition, there are diffuse hazy areas of groundglass opacity scattered thro ughout both lungs with no discrete focal area of consolidation. No worrisome pulmonary parenchymal mass lesion or nodule is appreciated on this exam. Review of the osseous structures demonstrates no w orrisome lytic or blastic bone lesions. IMPRESSION: Interstitial opacity and diffuse hazy groundglass opacity, chronicity/etiology uncertain. Findings could potentially be related to Covid pneumonia in the proper clinical setting but chronic interstitial disease is a possibility. No evidence for pulmonary arterial embolism.
[2020-10-09] MEDS ORDERED: Potassium Chloride 20 MEQ TAB ONE (20:19)
[2020-10-09] MEDS ORDERED: cefTRIAXone\\ROCEPHIN 1 GM VIAL ONE (20:19)
[2020-10-09] MEDS ORDERED: Potassium Bicarbonate/Cit Ac 25 MEQ TAB ONE (20:37)
[2020-10-09] MEDS ORDERED: Pot Chloride/Pot Bicarb/Cit Ac 25 mEq Effervescent Tablet ONE (20:38)
[2020-10-09] MEDS ORDERED: Potassium Bicarbonate/Cit Ac 20 MEQ TAB PO SCH (21:00)
[2020-10-09 21:14] LABS: Bilirubin Negative (Negative); Blood, Urine Negative (Negative); Clarity Clear (Clear); Glucose, Urine (Dipstick) Normal (Negative); Ketone, Urine Negative (Negative); Leukocyte 250 Leu/uL (Negative); Nitrite 2+ (Negative); Protein, Urine (Dipstick) 10 mg/dL (Neg-Trace); Urobilinogen Normal mg/dL (Less than 2); WBC/HPF 21-50 HPF (0-3)
[2020-10-09] MEDS ORDERED: Azithromycin 500 MG VIAL ONE (21:14)
[2020-10-09 21:30] LABS: Bacteria/HPF 1+ HPF (None Seen)
[2020-10-09] MEDS ORDERED: Ondansetron PF 4 MG/2 ML Vial IVP PRN (23:00)
[2020-10-09] MEDS ORDERED: Ondansetron ODT 4 MG TAB SL PRN (23:00)
[2020-10-09] MEDS ORDERED: Sodium Chloride 0.9% 1,000 ML IV SCH (23:00)
[2020-10-09] MEDS ORDERED: Acetaminophen 325 MG TAB PO PRN (23:00)
[2020-10-09 23:10] VITALS: BMI 22.8
[2020-10-10] MEDS ORDERED: Labetalol HCl 100 MG/20 ML VIAL SLOW IVP PRN (00:05)
[2020-10-10] MEDS ORDERED: cloNIDine 0.1 MG TAB PO PRN (00:05)
[2020-10-10] MEDS ORDERED: Morphine 2 MG/ML VIAL SLOW IVP PRN (00:05)
[2020-10-10] MEDS ORDERED: Guaifenesin DM 100-10/5 ML UDCUP PO PRN (00:05)
[2020-10-10] MEDS ORDERED: hydrALAZINE 20 MG/ML VIAL SLOW IVP PRN (00:05)
[2020-10-10] MEDS ORDERED: Promethazine HCl 12.5 MG in Sodium Chloride 0.9% 50 ML IVPB PRN (00:05)
[2020-10-10] MEDS ORDERED: HYDROcodone/Acetaminophen 5/325 mg Tablet PO PRN (00:05)
[2020-10-10] MEDS ORDERED: Ondansetron PF 4 MG/2 ML Vial IVP PRN (00:05)
--- NOTE | 2020-10-10 00:10 | PDOC.HHP ---
Hospitalist HPI - History of Present Illness Syncope, weakness History of Present Illness: Patient is a 50 year old female with PMH HLD, HTN presents with family after syncopal episodes x 2 today. Patient had recieved her covid vaccine before syncope, and experienced nausea, fever, chills, dizziness, had syncope x 2 in kitchen at home at 1pm, blood pressure checked and low, and was brought to ED. Currently she reports feeling better, denies chest pain/shortness of breath, dysuria, nausea, vomiting. In ED, patient febrile to 100.4, tachycardic, hypotensive, lungs diminished on R side, labs significant for Na 132, K 3.2, imaging includes CT concerning for interstitial opacity and diffuse hazy groundg lass opacity concerning for COVID pneumonia. UA positive for UTI. Patient admitted for further workup and care. Of note, patient had an episode of covid last February with ICU stay and intubation. she reports full recovery in the interim. unsure if the lung findings are chronic and related to previous covid. Hospitalist ROS - Review of Systems Constitutional: reports: weakness, malaise. denies: fever, chills, sweats, other Eyes: denies: pain, vision change, conjunctivae inflammation, eyelid inflammation, redness, other ENT: denies: ear pain, ear discharge, nose pain, nose discharge, nose congestion, mouth pain, mouth swelling, throat pain, throat swelling, other Respiratory: denies: cough, dry, shortness of breath, hemoptysis, SOB with excertion, pleuritic pain, sputum, wheezing, other Cardiovascular: denies: chest pain, palpitations, orthopnea, paroxysmal noc. dyspnea, edema, light headedness, other Gastrointestinal: denies: nausea, vomiting, abdominal pain, diarrhea, constipation, melena, hematochezia, other Genitourinary: denies: dysuria, frequency, incontinence, hematuria, retention, other Musculoskeletal: denies: neck pain, shoulder pain, arm pain, back pain, hand pain, leg pain, foot pain, other Skin: denies: rash, lesions, jersey, bruising, other Neurological: denies: weakness, numbness, incoordination, change in speech, confusion, seizures, other All other systems reviewed; all pertinent +/- noted in HPI/Subj - Medication Medications: metoprolol succinate Yamel Oct 09, 2020 19:06 CRISS Meeks Amanda tablet extended release 24 hr : Strength - 25 mg : ORAL Patient Dose: 25 mg Oral once a day. Protonix oral TueOct 09, 2020 19:06 CRISS Meeks Amanda tablet,delayed release (DR/EC) : Strength - 40 mg : ORAL Patient Dose: 40 mg Oral once a day. sertraline [facility] Oct 09, 2020 19:07 CRISS Meeks Amanda tablet : Strength - 25 mg : ORAL Patient Dose: 25 mg Oral once a day. aspirin oral TueOct 09, 2020 19:07 CRISS Meeks Amanda tablet : Strength - 325 mg : ORAL Patient Dose: 325 mg Oral once a day. Hospitalist History - Past Medical History Other Medical History: hyperlipidemia - Past Surgical History Other Surgical History: C section - Family History Family History: reports: no pertinent history - Social History Smoking Status: Never smoker Alcohol: reports: None Drugs: reports: none - Exam General Appearance: NAD, awake alert Eye: PERRL, anicteric sclera ENT: normocephalic atraumatic, no oropharyngeal lesions, moist mucosa Neck: supple, symmetric, no JVD, no thyromegaly, no lymphadenopathy, no carotid bruit Heart: RRR, no murmur, no gallops, no rubs, normal peripheral pulses Respiratory: CTAB, no wheezes, no rales, no ronchi, normal chest expansion, no tachypnea, normal percussion Gastrointestinal: soft, non-tender, non-distended, normal bowel sounds, no palpable masses, no hepatomegaly, no splenomegaly, no bruit Extremities: no cyanosis, no clubbing, no edema Skin: normal turgor, no lesions, no rashes Neurological: cranial nerve grossly intact, normal sensation to touch, no weakness, no focal deficits, no new deficit Musculoskeletal: normal tone, normal strength, no muscle wasting Psychiatric: normal affect, normal behavior, A&O x 3 Hospitalist Results - Labs Result Diagrams: 10/09/20 18:53 10/09/20 18:53 Lab results: WBC 8.4 thou/uL (4.8-10.8) 10/09/20 18:53 Hgb 11.9 g/dL (12.0-16.0) L 10/09/20 18:53 Hct 36.5 % (36.0-47.0) 10/09/20 18:53 MCV 75.5 fL (78.0-98.0) L 10/09/20 18:53 Plt Count 284 thou/uL (130-400) 10/09/20 18:53 Neutrophils % 82.8 % (42.0-75.0) H 10/09/20 18:53 Sodium 132 mmol/L (136-145) L 10/09/20 18:53 Potassium 3.2 mmol/L (3.5-5.1) L 10/09/20 18:53 Chloride 98 mmol/L (98-107) 10/09/20 18:53 Carbon Dioxide 26 mmol/L (22-29) 10/09/20 18:53 BUN 10 mg/dL (9.8-20.1) 10/09/20 18:53 Creatinine 0.74 mg/dL (0.6-1.1) 10/09/20 18:53 Glucose 106 mg/dL (70-105) H 10/09/20 18:53 Lactic Acid 1.9 mmol/L (0.5-2.2) 10/09/20 18:53 Calcium 8.3 mg/dL (7.8-10.44) 10/09/20 18:53 Total Bilirubin 0.4 mg/dL (0.2-1.2) 10/09/20 18:53 AST 12 U/L (5-34) 10/09/20 18:53 ALT 9 U/L (8-55) 10/09/20 18:53 Alkaline Phosphatase 76 U/L (40-110) 10/09/20 18:53 Serum Total Protein 6.4 g/dL (6.0-8.3) 10/09/20 18:53 Albumin 3.6 g/dL (3.5-5.0) 10/09/20 18:53 Urine Ketones Negative mg/dL (Negative) 10/09/20 20:58 Urine Blood Negative (Negative) 10/09/20 20:58 Urine Nitrite 2+ (Negative) A 10/09/20 20:58 Ur Leukocyte Esterase 250 Mateo/uL (Negative) A 10/09/20 20:58 Urine RBC 4-6 HPF (0-3) A 10/09/20 20:58 Urine WBC 21-50 HPF (0-3) A 10/09/20 20:58 Ur Squamous Epith Cells 11-20 HPF (0-3) A 10/09/20 20:58 Urine Bacteria 1+ HPF (None Seen) A 10/09/20 20:58 Additional comment: VITAL SIGNS [facility] Oct 09, 2020 18:29 CRISS Harry Kimberly BP: 119/70 Pulse: 112 Resp: 24 Temp: 100.4 (Oral) Pain: 6 O2 sat: 97 on (Room Air) Time: 10/09/2020 18:29. Hospitalist H&P A/P - Plan Plan: Patient is a 50 year old female with PMH HLD, HTN presents with family after syncopal episodes x 2 today. # syncope # UTI # metabolic encephalopathy # sepsis Patient had recieved her covid vaccine before syncope, and experienced nausea, fever, chills, dizziness, had syncope x 2 in kitchen at home at 1pm, blood pressure checked and low, and was brought to ED. Currently she reports feeling better, denies chest pain/shortness of breath, dysuria, nausea, vomiting. In ED, patient febrile to 100.4, tachycardic, hypotensive, lungs diminished on R side, labs significant for Na 132, K 3.2, imaging includes CT concerning for interstitial opacity and diffuse hazy groundglass opacity concerning for COVID pneumonia. UA positive for UTI. Patient admitted for further workup and care. Of note, patient had an episode of covid last February with ICU stay and intubation. - admit to floor - rule out active covid 19 infection as below - ceftriaxone/azithromycin - Pt/ot consults - follow up cultures # abnormal lung imaging - findings suspicious for covid pneumonia, patient with history of COVID and intubation in February last year, however she reports full recovery in the interim. unsure if the lung findings are chronic and related to previous covid. she does not have covid symptoms of note - covid pcr ordered - covid isolation precautions - continue azithromycin/decadron/ceftriaxone pending test results # HTN # HLD - resume home medications DVT/GI ppx full code
[2020-10-10] MEDS ORDERED: Electrolyte Replacement Protocol 1 EACH FS PRN (00:15)
[2020-10-10 05:52] LABS: SARS-CoV-2 PCR by NAA Not Detected (NotDetected)
[2020-10-10 06:31] LABS: Anion Gap 16 mmol/L (10-20); BUN (Urea Nitrogen) 7 mg/dL (9.8-20.1); Calc. Creatinine Clearance 94 mL/min (70-130); Calcium 7.7 mg/dL (7.8-10.44); Carbon Dioxide 20 mmol/L (22-29); Chloride 108 mmol/L (98-107); Glucose 83 mg/dL (70-105); Magnesium 1.8 mg/dL (1.6-2.6); Potassium 4.7 mmol/L (3.5-5.1); Sodium 139 mmol/L (136-145)
[2020-10-10 06:34] LABS: #Lymphocytes 0.8 thou/uL (1.20-3.40); #Monocytes 0.6 thou/uL (0.11-0.59); #Neutrophils 5.3 thou/uL (1.40-6.50); %Basophils 0.3 % (0.0-1.0); %Eosinophils 0.7 % (0.0-10.0); %Lymphocytes 11.4 % (21.0-51.0); %Neutrophils 78.6 % (42.0-75.0); Hemoglobin 11.4 g/dL (12.0-16.0); Mean Corpuscular HGB CONC 30.3 g/dL (32.0-36.0); Mean Corpuscular Hemoglobin 23.2 pg (27.0-31.0); Mean Corpuscular Volume 76.6 fL (78.0-98.0); Mean Platelet Volume 8.9 fL (7.4-10.4); Platelet Count 269 thou/uL (130-400); Red Blood Cell (RBC) Count 4.92 mill/uL (4.20-5.40); White Blood Cell (WBC) Count 6.8 thou/uL (4.8-10.8)
[2020-10-10] MEDS: Polyethylene Glycol 3350 17 GM Packet PO SCH (08:23)
[2020-10-10] MEDS: Acetaminophen 325 MG TAB PO PRN ×3 (08:59→19:29)
[2020-10-10] MEDS ORDERED: Magnesium 2 GM/50 ML 2 GM in Premix Bag 1 BAG IVPB SCH (09:15)
--- NOTE | 2020-10-10 15:23 | PDOC.HOSPP ---
- Subjective Encounter Date: 10/10/20 Encounter Time: 09:25 Subjective: awake, oriented well, responds well to verbal stimuli is moving all extremities no sob, nausea or abd pain - Objective Vital Signs & Weight: Vital Signs (12 hours) Temp Pulse Resp BP Pulse Ox 10/10/20 11:42 99.6 F 116 H 17 98/64 95 10/10/20 08:00 98.8 F 76 18 108/83 96 10/10/20 04:00 99.1 F 106 H 18 113/76 94 L Weight Weight 125 lb 4.8 oz Result Diagrams: 10/10/20 06:24 10/10/20 05:54 Hospitalist ROS - Medication Medications: Active Medications Generic Name Dose Route Start Last Admin Trade Name Freq PRN Reason Stop Dose Admin Acetaminophen 650 mg 10/10/20 00:05 10/10/20 10:33 Acetaminophen 325 Mg Tab PO 650 mg Q4H PRN Administration Headache/Fever/Mild Pain (1-3) Pantoprazole Sodium 40 mg 10/10/20 09:00 10/10/20 08:16 Pantoprazole 40 Mg Tab PO 40 mg DAILY NEHAL Administration Polyethylene Glycol 17 gm 10/10/20 09:00 10/10/20 08:23 Polyethylene Glycol 3350 17 Gm Packet PO Not Given DAILY NEHAL Quetiapine Fumarate 50 mg 10/10/20 09:00 10/10/20 08:15 Quetiapine Fumarate 25 Mg Tab PO 50 mg DAILY NEHAL Administration Sodium Chloride 10 ml 10/10/20 09:00 10/10/20 08:16 Flush - Normal Saline 10 Ml Syringe IVF 10 ml Q12HR NEHAL Administration - Exam General Appearance: awake alert Eye: PERRL, anicteric sclera ENT: no oropharyngeal lesions, moist mucosa Neck: supple, no JVD Neck - other findings: old trach scar Heart: RRR, no murmur Respiratory: no wheezes, no ronchi, rales Gastrointestinal: soft, non-tender, non-distended, normal bowel sounds Extremities: no cyanosis, no edema Neurological: cranial nerve grossly intact, no focal deficits Psychiatric: normal affect, A&O x 3 Hosp A/P (1) UTI (urinary tract infection) Status: Acute Qualifiers: Urinary tract infection type: acute cystitis Hematuria presence: without hematuria Qualified Code(s): N30.00 - Acute cystitis without hematuria (2) Acute metabolic encephalopathy Code(s): G93.41 - METABOLIC ENCEPHALOPATHY Status: Resolved (3) Dyslipidemia Code(s): E78.5 - HYPERLIPIDEMIA, UNSPECIFIED Status: Chronic (4) HTN (hypertension) Code(s): I10 - ESSENTIAL (PRIMARY) HYPERTENSION Status: Chronic Qualifiers: Hypertension type: essential hypertension Qualified Code(s): I10 - Essential (primary) hypertension (5) h/o covid 19 pna Status: Chronic - Plan is on ceftriaxone, await urine culture results, blood cs x2 are -ve d/w daughter [phone] and gave full updates she got her first shot of cov[facility] vaccine [facility] per her pcp advice (had no antibodies per daughter) was intubated last year for covid 19 pna, s/p trach with removal (scar has healed up well) and has recovered well, she can ambulate and tolerates oral solid diet well. dc plan when cultures are back to ambulate as tolerated
[2020-10-10] MEDS ORDERED: Lactated Ringer's 1,000 ML IV SCH (16:00)
[2020-10-10] MEDS ORDERED: Sodium Chloride 0.9% 500 ML IV SCH (16:00)
[2020-10-10 16:42] LABS: BHCG - Serum Negative (NEGATIVE); Pregs Control Background? CLEAR/WHITE (CLR/WHITE); Pregs Control Bar Appear? YES (CONTROL BAR)
[2020-10-10] MEDS ORDERED: Azithromycin 500 MG in Syringe 0 ML IVPB SCH (21:00)
[2020-10-10] MEDS ORDERED: Enoxaparin Sodium 40 MG/0.4 ML SYRINGE SC SCH (21:00)
[2020-10-10] MEDS ORDERED: cefTRIAXone\\ROCEPHIN 1 GM in Sodium Chloride 0.9% 100 ML IVPB SCH (21:00)
[2020-10-10] MEDS ORDERED: Metoprolol Tartrate 25 MG TAB PO SCH (21:00)
[2020-10-10] MEDS ORDERED: Azithromycin 500 MG in Sodium Chloride 0.9% 250 ML 250 ML IVPB SCH (22:00)
[2020-10-11] MEDS ORDERED: Dexamethasone 20 MG/5 ML VIAL SLOW IVP SCH (00:15)
[2020-10-11 07:06] LABS: #Eosinphils 0.2 thou/uL (0.0-0.7); #Lymphocytes 1.1 thou/uL (1.20-3.40); #Monocytes 0.5 thou/uL (0.11-0.59); #Neutrophils 3.5 thou/uL (1.40-6.50); %Basophils 0.8 % (0.0-1.0); %Eosinophils 3.9 % (0.0-10.0); %Lymphocytes 21.1 % (21.0-51.0); %Monocytes 9.6 % (0.0-10.0); %Neutrophils 64.6 % (42.0-75.0); Hemoglobin 11.6 g/dL (12.0-16.0); Mean Corpuscular HGB CONC 31.8 g/dL (32.0-36.0); Mean Corpuscular Hemoglobin 24.6 pg (27.0-31.0); Mean Corpuscular Volume 77.3 fL (78.0-98.0); Mean Platelet Volume 9.3 fL (7.4-10.4); Platelet Count 259 thou/uL (130-400); RBC Distribution Width 18.1 % (11.5-14.5); Red Blood Cell (RBC) Count 4.72 mill/uL (4.20-5.40); White Blood Cell (WBC) Count 5.4 thou/uL (4.8-10.8)
[2020-10-11 07:29] LABS: Anion Gap 12 mmol/L (10-20); BUN (Urea Nitrogen) 6 mg/dL (9.8-20.1); Calc. Creatinine Clearance 92 mL/min (70-130); Calcium 8.2 mg/dL (7.8-10.44); Carbon Dioxide 21 mmol/L (22-29); Chloride 110 mmol/L (98-107); Glucose 85 mg/dL (70-105); Magnesium 2.1 mg/dL (1.6-2.6); Sodium 139 mmol/L (136-145)
[2020-10-11 07:50] VITALS: BP 116/77; TEMP 98.9
[2020-10-11] MEDS: Polyethylene Glycol 3350 17 GM Packet PO SCH (10:06)
--- NOTE | 2020-10-11 13:55 | PDOC.HOSPP ---
- Subjective Encounter Date: 10/11/20 Encounter Time: 13:54 Subjective: Ms. Herminio Acevedo was seen today in follow-up of UTI and encephalopathy. She is back to her baseline. Her is at the bedside. She does not have any complaints other than swelling in her left upper exremity. She tells me she got the COVID vaccine 3 days ago in the arm , but says the swelling is much worse today. - Objective Vital Signs & Weight: Vital Signs (12 hours) Temp Pulse Resp BP Pulse Ox 10/11/20 07:48 98.9 F 86 16 116/77 96 Weight Weight 125 lb 4.8 oz I&O: 10/10/20 10/11/20 10/12/20 06:59 06:59 06:59 Intake Total 1000 Balance 1000 Result Diagrams: 10/11/20 06:45 10/11/20 06:45 Hospitalist ROS - Medication Medications: Active Medications Generic Name Dose Route Start Last Admin Trade Name Freq PRN Reason Stop Dose Admin Acetaminophen 650 mg 10/10/20 00:05 10/10/20 19:29 Acetaminophen 325 Mg Tab PO 650 mg Q4H PRN Administration Headache/Fever/Mild Pain (1-3) Enoxaparin Sodium 40 mg 10/10/20 21:00 10/10/20 20:25 Enoxaparin Sodium 40 Mg/0.4 Ml Syringe SC 40 mg 2100 NEHAL Administration Ceftriaxone Sodium 1 gm/ 100 mls @ 200 mls/hr 10/10/20 21:00 10/10/20 20:26 Sodium Chloride IVPB 100 mls HS NEHAL Administration Pantoprazole Sodium 40 mg 10/10/20 09:00 10/11/20 10:06 Pantoprazole 40 Mg Tab PO 40 mg DAILY NEHAL Administration Polyethylene Glycol 17 gm 10/10/20 09:00 10/11/20 10:06 Polyethylene Glycol 3350 17 Gm Packet PO 17 gm DAILY NEHAL Administration Sodium Chloride 10 ml 10/10/20 09:00 10/11/20 10:06 Flush - Normal Saline 10 Ml Syringe IVF 10 ml Q12HR NEHAL Administration - Exam Eye: PERRL, anicteric sclera Heart: RRR, no murmur, no gallops, no rubs, normal peripheral pulses Respiratory: CTAB (with the exception of rales in the right base), no wheezes, no ronchi Gastrointestinal: soft, non-tender, non-distended, normal bowel sounds, no palpable masses, no hepatomegaly Extremities: no cyanosis (+ edema in the left upper extremity, and tenderness over the left deltoid. ulnar and radial arteries are palpable.) Hosp A/P (1) UTI (urinary tract infection) Status: Acute Qualifiers: Urinary tract infection type: acute cystitis Hematuria presence: without hematuria Qualified Code(s): N30.00 - Acute cystitis without hematuria (2) Acute metabolic encephalopathy Code(s): G93.41 - METABOLIC ENCEPHALOPATHY Status: Resolved (3) HTN (hypertension) Code(s): I10 - ESSENTIAL (PRIMARY) HYPERTENSION Status: Chronic Qualifiers: Hypertension type: essential hypertension Qualified Code(s): I10 - Essential (primary) hypertension (4) h/o covid 19 pna Status: Chronic - Plan * UTI with Metabolic encephalopathy- she is back to her baseline. Urine culture results are still pending, but she says she feels better, and wants to go home * Left upper extremity swelling- this may be entirely due to and inflammatory reaction to the vaccine- however a DVT can not be ruled out- will check a venous ultrasound * HTN- blood pressure is controlled * Hopefully home on Omnicef if there is no DVT, and follow-up with culture results as an out patient
--- NOTE | 2020-10-11 15:50 | ULT ---
Left upper extremity venous Doppler HISTORY: Left upper arm pain post Covid vaccine 3 days ago. COMPARISON: None FINDINGS: Grayscale, color-flow, Doppler evaluation, and spectral analysis of the left upper extremit y venous structures is performed with 2-D imaging. Normal flow is present in the left subclavian vein. There is normal luminal compressibility and flow seen within the left internal jugular and axillary veins. The brachial vein is very small in caliber but does demonstrate normal lumen compressibility and flow . Radial and ulnar veins are difficult to assess due to very small size but do appear to demonstrate normal lumen compressibility. There is normal luminal compressibility and flow seen in the visualized left upper extremity cephalic and basilic veins. Limited sonographic evaluation was obtained in the left arm at site of vaccination. No fluid or fluid collection is seen at site of pain in the left upper extremity. IMPRESSION: 1. No evidence of a DVT involving the visualized deep venous structures left upper extremity. 2. Limited sonographic evaluation of the soft tissues at level of injection site left upper arm does not demonstrate evidence of fluid or fluid collection.
--- NOTE | 2020-10-11 17:50 | PDOC.DS.DS ---
Provider - Provider Date of Admission: 10/09/20 20:02 Date of Discharge: 10/11/20 Admitting Provider: Jem Pratt MD Primary Care Physician: Angélica Tran MD Course - Hospital Course Hospital Course: Ms. Durham is a 50-year-old female that has a history of hypertension and hyperlipidemia. She presented to the emergency room with fever and confusion. She was found to have a urinary tract infection. She was treated with IV antibiotics as well as IV fluids and improved dramatically. She returned back to her usual baseline level of functioning. When I saw her she felt well enough to go home and her who was at the bedside also was concerned about getting home soon. She did note some swelling in her left upper extremity in which she had gotten the COVID-19 vaccine 3 days earlier. However due to the excessive swelling it was felt best to get a venous ultrasound to rule out DVT. This was done and it was negative for DVT. Also she had recovered from COVID-19 pneumonia last year around March. A CT angiogram of the chest was done which tina wed some residual multifocal infiltrates however she did not have any respiratory symptoms and this is felt to be residual lung changes from the previous Covid infection. Her urine culture at the time was pending however she was doing much better and had improved on Rocephin therefore she will be discharged home on Omnicef. I have her daughter's phone number and if there are any changes that need to be made with the antibiotics I will call the daughter and let her know. This was discussed with the patient and the patient's who is at the bedside. They felt this was the best option since the daughter has a better command of the [place] language than they do. Pertinent Studies: Left Upper extremity Ultrasound - negative for DVT CTA- chest - bilateral multi-focal infiltrates Resuscitation Status: 10/10/20 00:04 Resuscitation Status Routine Resuscitation Status: FULL: Full Resuscitation - Labs Lab Results: 10/11/20 06:45 10/11/20 06:45 Abnormal Lab Results - Last 48 hrs 10/09/20 18:53: Sodium 132 L, Potassium 3.2 L 10/09/20 18:53: Hgb 11.9 L, MCV 75.5 L, MCH 24.5 L, RDW 17.8 H, Neutrophils % 82.8 H, Lymphocytes % 11.6 L, Neutrophils # 7.0 H, Lymphocytes # 1.0 L 10/09/20 20:58: Ur Specific [place] 1.050 H, Urine Nitrite 2+ A, Ur Leukocyte Esterase 250 A, Urine RBC 4-6 A, Urine WBC 21-50 A, Ur Squamous Epith Cells 11- 20 A, Urine Bacteria 1+ A 10/10/20 05:54: Chloride 108 H, Carbon Dioxide 20 L, BUN 7 L, Calcium 7.7 L 10/10/20 06:24: Hgb 11.4 L, MCV 76.6 L, MCH 23.2 L, MCHC 30.3 L, RDW 18.0 H, Neutrophils % 78.6 H, Lymphocytes % 11.4 L, Lymphocytes # 0.8 L, Monocytes # 0.6 H 10/11/20 06:45: Chloride 110 H, Carbon Dioxide 21 L, BUN 6 L 10/11/20 06:45: Hgb 11.6 L, MCV 77.3 L, MCH 24.6 L, MCHC 31.8 L, RDW 18.1 H, Lymphocytes # 1.1 L Microbiology - Entire Visit 10/09/20 19:02 Venous blood - Right Arm Blood Culture - Preliminary NO GROWTH AT 48 HOURS 10/09/20 19:10 Venous blood - Left Arm Blood Culture - Preliminary NO GROWTH AT 48 HOURS 10/10/20 09:15 Urine clean catch Urine Culture - Preliminary NO GROWTH AT 24 HOURS - Physical Exam Vitals: Vital Signs (12 hours) Temp Pulse Resp BP Pulse Ox 10/11/20 08:00 96 10/11/20 07:48 98.9 F 86 16 116/77 96 Weight Weight 125 lb 4.8 oz Physical Exam: The patient was seen and examined on the day of discharge. Problem - Problem (1) UTI (urinary tract infection) Status: Acute Qualifiers: Urinary tract infection type: acute cystitis Hematuria presence: without hematuria Qualified Code(s): N30.00 - Acute cystitis without hematuria (2) Acute metabolic encephalopathy Code(s): G93.41 - METABOLIC ENCEPHALOPATHY Status: Resolved (3) HTN (hypertension) Code(s): I10 - ESSENTIAL (PRIMARY) HYPERTENSION Status: Chronic Qualifiers: Hypertension type: essential hypertension Qualified Code(s): I10 - Essential (primary) hypertension (4) h/o covid 19 pna Status: Chronic Plan - Discharge Medications Prescriptions: Cefdinir [Omnicef] 300 mg PO Q12HR #10 cap Home Medications: Medication Instructions Recorded Confirmed Type Acetaminophen [Tylenol Extra 1,000 mg PO Q6HR PRN #30 tab 03/21/14 10/10/20 Rx Strength] QUEtiapine Fumarate [SEROquel] 50 mg PO DAILY tab 04/23/20 10/10/20 Rx Metoprolol Succinate 1 tablet PO Q8HR 10/10/20 10/10/20 History Nitrofurantoin Monohyd/M-Cryst 1 capsule PO Q12HR 10/10/20 10/10/20 History [Nitrofurantoin Bureau-Mcr 100 mg] Pantoprazole [Protonix] 1 tablet PO DAILY 10/10/20 10/10/20 History Sertraline HCl 1 tablet PO DAILY 10/10/20 10/10/20 History Cefdinir [Omnicef] 300 mg PO Q12HR #10 cap 10/11/20 Rx Allergies: No Known Drug Allergies Allergy (Verified 03/17/20 01:35) - Discharge Instructions Discharge Instructions:: Follow-up with Dr. Ortiz in 1 week Activity:: Activity as Tolerated Nourishment:: Heart Healthy Diet - Follow up Plan Referrals: Angélica Tran MD [Primary Care Provider] - Disposition: HOME Quality - Care Measures CORE MEASURES:: N/A
--- NOTE | 2020-11-01 16:39 | EKG ---
Test Reason : Blood Pressure : / mmHG Vent. Rate : 104 BPM Atrial Rate : 104 BPM P-R Int : 138 ms QRS Dur : 078 ms QT Int : 350 ms P-R-T Axes : 050 067 034 degrees QTc Int : 460 ms Sinus tachycardia Otherwise normal ECG Confirmed by CARMEN CARSON, DANISHA Jones ([id number]), supervising editor trailer ANNE MERCADO ([id number]) on 11/01/2020 4:39:23 PM Referred By: Confirmed By:DANISHA MORALES MD
== END 2020-10-11 17:52 | disposition home or self-care (01) | DRG 871 ==
LOC: ERS 18:27 → T4-B 20:02
PROVIDERS: ADMIT Internal Medicine; ATTEND Internal Medicine
DX: A41.9 Sepsis, unspecified organism (principal); G93.41 Metabolic encephalopathy; N39.0 Urinary tract infection, site not specified; Z20.822 Contact with and (suspected) exposure to COVID-19; I10 Essential (primary) hypertension; E78.5 Hyperlipidemia, unspecified; Z79.899 Other long term (current) drug therapy
CPT/HCPCS: 36415; 71045; 71275; 80048; 80053; 81003; 81015; 83605; 83735; 84703; 85025; 87040; 87086; 87635; 93005; 94760; 96365; 96367; J0456; J0696; J1650; J3475; J3490; Q9967; U0003; U0005

== ENCOUNTER 2021-02-16 14:34 | Observation (INO) | payer BC ==
[2021-02-16] MEDS ORDERED: Metoclopramide HCl 10 MG/2 ML VIAL ONE (14:58)
[2021-02-16] MEDS ORDERED: Ketorolac Tromethamine 30 MG/ML VIAL ONE (14:58)
[2021-02-16] MEDS ORDERED: diphenhydrAMINE 50 MG/ML VIAL ONE (14:58)
[2021-02-16 15:47] LABS: ALT (SGPT) 15 U/L (8-55); AST (SGOT) 18 U/L (5-34); Albumin 3.4 g/dL (3.5-5.0); Alkaline Phosphatase 59 U/L (40-110); Anion Gap 12 mmol/L (10-20); BUN (Urea Nitrogen) 14 mg/dL (9.8-20.1); Bilirubin, Total 0.4 mg/dL (0.2-1.2); Calc. Creatinine Clearance 0 mL/min (70-130); Calcium 8.5 mg/dL (7.8-10.44); Carbon Dioxide 23 mmol/L (22-29); Chloride 107 mmol/L (98-107); Globulin 2.8 g/dL (2.4-3.5); Glucose 108 mg/dL (70-105); Protein, Total 6.2 g/dL (6.0-8.3); Sodium 138 mmol/L (136-145)
[2021-02-16 16:06] LABS: Hemoglobin 14.6 g/dL (12.0-16.0); Mean Corpuscular HGB CONC 33.2 g/dL (32.0-36.0); Mean Corpuscular Hemoglobin 30.2 pg (27.0-31.0); Mean Corpuscular Volume 91.1 fL (78.0-98.0); Mean Platelet Volume 8.8 fL (7.4-10.4); Platelet Count 199 thou/uL (130-400); RBC Distribution Width 14.3 % (11.5-14.5); Red Blood Cell (RBC) Count 4.85 mill/uL (4.20-5.40); White Blood Cell (WBC) Count 7.5 thou/uL (4.8-10.8)
[2021-02-16 16:12] LABS: Band 52 % (5-11); Lymphocytes 13 % (21-51); MDiff Complete? YES; Metamyelocyte 1 % (0-0); Monocytes 1 % (0-10); Neutrophil 30 % (42-75); Reactive Lymphocytes 1 % (0-10); Reflex for Review?? YES
[2021-02-16] MEDS ORDERED: Cefepime 2 GM VIAL ONE (16:50)
[2021-02-16] MEDS ORDERED: Vancomycin 1 GM/200 ML BAG ONE (17:29)
[2021-02-16 17:43] LABS: Bilirubin Negative (Negative); Blood, Urine Negative (Negative); Clarity Clear (Clear); Glucose, Urine (Dipstick) Normal (Negative); Ketone, Urine Negative (Negative); Leukocyte Negative Leu/uL (Negative); Nitrite Negative (Negative); Protein, Urine (Dipstick) Negative (Neg-Trace); Urobilinogen Normal mg/dL (Less than 2); pH, Urine 5.5 (5.0-9.0)
[2021-02-16 17:46] LABS: Specific Gravity, Urine 1.046 (1.002-1.036)
[2021-02-16] MEDS ORDERED: Dextrose 5 %-0.45 % NaCl 1,000 ML IV SCH (19:45)
[2021-02-16] MEDS ORDERED: Sodium Chloride 0.9% (PF) 10 ML VIAL FS SCH (20:00)
[2021-02-16] MEDS ORDERED: Pantoprazole 40 MG VIAL IVP SCH ×2 (20:00)
[2021-02-16] MEDS: Acetaminophen 325 MG TAB PO PRN (20:54)
[2021-02-16 21:54] VITALS: BMI 28.1
[2021-02-16 22:31] LABS: Lactic Acid 2.7 mmol/L (0.5-2.2)
[2021-02-16 22:46] LABS: SARS-CoV-2 NAA Rapid Test Not Detected (NotDetected)
[2021-02-17] MEDS ORDERED: Cefepime 2 GM in Sodium Chloride 0.9% 100 ML IVPB SCH (05:00)
[2021-02-17] MEDS: Acetaminophen 325 MG TAB PO PRN (05:43)
[2021-02-17] MEDS ORDERED: Vancomycin 1 GM in Premix Bag 1 BAG IVPB SCH (06:00)
[2021-02-17 06:22] LABS: #Lymphocytes 0.7 thou/uL (1.20-3.40); #Monocytes 0.4 thou/uL (0.11-0.59); #Neutrophils 3.8 thou/uL (1.40-6.50); %Basophils 0.6 % (0.0-1.0); %Lymphocytes 13.6 % (21.0-51.0); %Monocytes 7.8 % (0.0-10.0); Hemoglobin 14.1 g/dL (12.0-16.0); Mean Corpuscular HGB CONC 32.9 g/dL (32.0-36.0); Mean Corpuscular Volume 91.1 fL (78.0-98.0); Mean Platelet Volume 8.2 fL (7.4-10.4); Platelet Count 206 thou/uL (130-400); RBC Distribution Width 14.3 % (11.5-14.5); Red Blood Cell (RBC) Count 4.68 mill/uL (4.20-5.40); White Blood Cell (WBC) Count 4.9 thou/uL (4.8-10.8)
[2021-02-17 06:42] LABS: Lactic Acid 0.8 mmol/L (0.5-2.2)
[2021-02-17 06:49] LABS: Anion Gap 10 mmol/L (10-20); BUN (Urea Nitrogen) 6 mg/dL (9.8-20.1); Calc. Creatinine Clearance 108 mL/min (70-130); Calcium 7.7 mg/dL (7.8-10.44); Carbon Dioxide 19 mmol/L (22-29); Chloride 113 mmol/L (98-107); Glucose 100 mg/dL (70-105); Potassium 3.5 mmol/L (3.5-5.1); Sodium 138 mmol/L (136-145)
[2021-02-17] MEDS ORDERED: Aspirin 81 mg Enteric Coated Tablet PO SCH (09:00)
[2021-02-17 11:55] VITALS: BP 111/77; TEMP 98.4
== END 2021-02-17 14:45 | disposition home or self-care (01) ==
LOC: ERS 14:34 → SURG A 19:27
PROVIDERS: ADMIT Student in an Organized Health Care Education/Training Program; ATTEND Internal Medicine
DX: A41.89 Other specified sepsis (principal); A08.4 Viral intestinal infection, unspecified; E86.0 Dehydration; J98.4 Other disorders of lung; I10 Essential (primary) hypertension; E78.5 Hyperlipidemia, unspecified; K21.9 Gastro-esophageal reflux disease without esophagitis; Z86.16 Personal history of COVID-19; Z79.82 Long term (current) use of aspirin; Z79.899 Other long term (current) drug therapy; Z20.822 Contact with and (suspected) exposure to COVID-19
CPT/HCPCS: 36415; 51701; 71045; 74177; 80048; 80053; 81003; 83605; 84145; 84443; 85025; 85060; 87040; 87086; 93005; 94760; 96365; 96367; 96375; 96376; C9113; G0378; J0692; J1200; J1885; J2765; J3370; J3490; Q9967; U0002; U0005

== ENCOUNTER 2022-04-15 13:52 | Outpatient (CLI) | payer OTHER | END 2022-04-15 13:53 | disposition home or self-care (01) | LOC: DTY/OP 13:52 | PROVIDERS: ATTEND Student in an Organized Health Care Education/Training Program | DX: I10 Essential (primary) hypertension (principal); R73.03 Prediabetes; Z71.3 Dietary counseling and surveillance | CPT/HCPCS: 97802 ==

== ENCOUNTER 2023-05-25 15:12 | Outpatient (CLI) | payer BC | END 2023-05-25 15:13 | disposition home or self-care (01) | LOC: RAD 15:12 | PROVIDERS: ATTEND Internal Medicine Rheumatology | DX: M13.0 Polyarthritis, unspecified (principal) | CPT/HCPCS: 71046 ==

== ENCOUNTER 2023-06-10 12:51 | Outpatient (CLI) | payer BC | END 2023-06-10 12:52 | disposition home or self-care (01) | LOC: BICMAMMO 12:51 | PROVIDERS: ATTEND Internal Medicine Rheumatology | DX: M81.0 Age-related osteoporosis without current pathological fracture (principal) | CPT/HCPCS: 77080 ==

== ENCOUNTER 2023-08-09 12:31 | Outpatient (CLI) | payer BC | END 2023-08-09 12:32 | disposition home or self-care (01) | LOC: RAD 12:31 | PROVIDERS: ATTEND Internal Medicine | DX: J06.9 Acute upper respiratory infection, unspecified (principal); R06.00 Dyspnea, unspecified | CPT/HCPCS: 71046 ==